=== PATIENT | male | born 1980 | race Caucasian/White ===

== ENCOUNTER 2016-10-28 15:57 | Inpatient (IN) | payer BC, MEDICAID ==
[2016-10-28] MEDS ORDERED: SODIUM CHLORIDE 0.9% 1,000 ML IV ONE (16:40)
[2016-10-28 16:58] LABS: Basophils % (A) 1 %; CH 32.5; CHCM 35.5; Eosinophils % (A) 1 %; HCT 44.8 % (39.0-53.0); HDW 2.73; HGB 15.3 gm/dL (13.0-17.5); Luc # (Auto) 0.07; Luc % (Auto) 2; Lymphocytes # (A) 0.9 k/uL (1.0-4.8); Lymphocytes % (A) 30 %; MCH 31.4 pg (25.0-35.0); MCHC 34.2 g/dL (31.0-37.0); MCV 91.9 fL (80.0-100.0); Mean Platelet Volume 7.3; Monocytes # (A) 0.2 k/uL (0-1.0); Monocytes % (A) 5 %; Neutrophils # (A) 1.9 k/uL (1.3-7.7); Neutrophils % (A) 62 %; RBC 4.87 m/uL (4.30-5.90); RDW 14.6 % (11.5-15.5); WBC 3.1 k/uL (3.8-10.6); WBC (Perox) 2.95
--- NOTE | 2016-10-28 17:02 | ED ---
Alcohol HPI <Monae Espinalily - Last Filed: 10/29/16 07:00> - General Source: patient, EMS, RN notes reviewed Mode of arrival: EMS Limitations: no limitations <Magalie Kuo - Last Filed: 10/30/16 22:50> - General Chief Complaint: Alcohol Stated Complaint: eval for withdrawals, Time Seen by Provider: 10/28/16 16:05 - History of Present Illness Initial Comments: Patient is a 36-year-old male presents to the emergency room for evaluation of alcohol intoxication. Patient states that he drinks about a fifth of vodka per day. Patient states he's been doing this on and off for many years. Patient states he has tried to go to rehab with no success. Patient denies suicidal or homicidal ideations. Patient denies illicit drug use. Patient states he smokes 2 packs per day. Patient was petitioned by his mother. Petition states that patient has lost 45 pounds in the last month and does not eat or socialize. Patient has a history of bipolar disorder. Patient has not been taking his medications. Patient denies chest pain, shortness of breath, headache , dizziness, nausea, vomiting, diarrhea, constipation, fevers, chills. (Magalie uKo) - Related Data Home Medications Medication Instructions Recorded Confirmed No Known Home Medications [No 10/28/16 10/28/16 Known Home Medications] Allergies Allergy/AdvReac Type Severity Reaction Status Date / Time No Known Allergies Allergy Verified 10/28/16 16:25 Review of Systems ROS Other: All systems not noted in ROS Statement are negative. <Judy Espinal - Last Filed: 10/29/16 07:00> ROS Other: All systems not noted in ROS Statement are negative. <Magalie Kuo - Last Filed: 10/30/16 22:50> ROS Statement: Those systems with pertinent positive or pertinent negative responses have been documented in the HPI. Past Medical History Past Medical History: No Reported History History of Any Multi-Drug Resistant Organisms: None Reported Past Surgical History: Tonsillectomy Past Psychological History: No Psychological Hx Reported Smoking Status: Current every day smoker Past Alcohol Use History: Abuse, Daily, Heavy Past Drug Use History: None Reported - Past Family History Father Additional Family Medical History / Comment(s): Father is alive at age 57 with no major medical problems. Mother is alive at age of 56 with no major medical problems. Patient has 1 sister with no known medical problems. Patient does not have any children. <Magalie Kuo - Last Filed: 10/30/16 22:50> General Exam <Judy Espinal - Last Filed: 10/29/16 07:00> Limitations: no limitations General appearance: alert, appears intoxicated Head exam: Present: atraumatic, normocephalic, normal inspection Eye exam: Present: normal appearance ENT exam: Present: normal exam Neck exam: Present: normal inspection Respiratory exam: Present: normal lung sounds bilaterally. Absent: respiratory distress Cardiovascular Exam: Present: normal rhythm, tachycardia, normal heart sounds GI/Abdominal exam: Present: soft, normal bowel sounds. Absent: distended, tenderness, guarding, rebound, rigid Extremities exam: Present: normal inspection Back exam: Present: normal inspection Neurological exam: Present: alert, oriented X3, CN II-XII intact, normal gait Psychiatric exam: Present: normal affect, normal mood Skin exam: Present: warm, dry, intact, normal color. Absent: rash <Magalie Kuo - Last Filed: 10/30/16 22:50> - General Exam Comments Initial Comments: Laying in exam room, no acute distress. (Magalie Kuo) Medical Decision Making - Lab Data Result diagrams: 10/28/16 16:48 10/28/16 16:48 <Judy Espinal - Last Filed: 10/29/16 07:00> - Lab Data Result diagrams: 10/28/16 16:48 10/28/16 16:48 <Magalie Kuo - Last Filed: 10/30/16 22:50> - Medical Decision Making Patient was evaluated by EPS and will be admitted, however there is no open bed available at this time. Patient placed on [facility] protocol, and pending transfer. (Judy Espinal) patient is a 36-year-old male presents to the emergency room for alcohol intoxication. Patient's serum alcohol level 231. Patient will be sober at 12: 45 AM. Labs show no significant findings. Patient is petitioned. Patient can be evaluated by psych when sober to 12:45 AM. Case discussed and passed on to Dr. Holt. (Magalie Kuo) - Lab Data Lab Results 10/28/16 10/28/16 10/28/16 Range/Units 16:48 16:48 16:48 WBC 3.1 L (3.8-10.6) k/uL RBC 4.87 (4.30-5.90) m/uL Hgb 15.3 (13.0-17.5) gm/dL Hct 44.8 (39.0-53.0) % MCV 91.9 (80.0-100.0) fL MCH 31.4 (25.0-35.0) pg MCHC 34.2 (31.0-37.0) g/dL RDW 14.6 (11.5-15.5) % Plt Count 89 L (150-450) k/uL Neutrophils % 62 % Lymphocytes % 30 % Monocytes % 5 % Eosinophils % 1 % Basophils % 1 % Neutrophils # 1.9 (1.3-7.7) k/uL Lymphocytes # 0.9 L (1.0-4.8) k/uL Monocytes # 0.2 (0-1.0) k/uL Eosinophils # 0.0 (0-0.7) k/uL Basophils # 0.0 (0-0.2) k/uL Sodium 138 (137-145) mmol/L Potassium 3.7 (3.5-5.1) mmol/L Chloride 96 L (98-107) mmol/L Carbon Dioxide 23 (22-30) mmol/L Anion Gap 19 mmol/L BUN 20 (9-20) mg/dL Creatinine 0.65 L (0.66-1.25) mg/dL Est GFR (MDRD) Af Amer >60 (>60 ml/min/1.73 sqM) Est GFR (MDRD) Non-Af >60 (>60 ml/min/1.73 sqM) Glucose 106 H (74-99) mg/dL Calcium 8.7 (8.4-10.2) mg/dL Magnesium 1.6 (1.6-2.3) mg/dL Ferritin (18-464) ng/mL Total Bilirubin 1.0 (0.2-1.3) mg/dL AST 233 H (17-59) U/L ALT 139 H (21-72) U/L Alkaline Phosphatase 93 (38-126) U/L Total Protein 7.1 (6.3-8.2) g/dL Albumin 4.9 (3.5-5.0) g/dL Amylase (30-110) U/L Lipase (23-300) U/L TSH 0.937 (0.465-4.680) mIU/L Urine Color Urine Appearance (Clear) Urine pH (5.0-8.0) Ur Specific [place] (1.001-1.035) Urine Protein (Negative) Urine Glucose (UA) (Negative) Urine Ketones (Negative) Urine Blood (Negative) Urine Nitrite (Negative) Urine Bilirubin (Negative) Urine Urobilinogen (<2.0) mg/dL Ur Leukocyte Esterase (Negative) Urine RBC (0-5) /hpf Urine WBC (0-5) /hpf Ur Squamous Epith Cells (0-4) /hpf Urine Bacteria (None) /hpf Hyaline Casts (0-2) /lpf Granular Casts (0) /lpf Urine Mucus (None) /hpf Urine Opiates Screen (NotDetected) Ur Oxycodone Screen (NotDetected) Urine Methadone Screen (NotDetected) Ur Propoxyphene Screen (NotDetected) Ur Barbiturates Screen (NotDetected) U Tricyclic Antidepress (NotDetected) Ur Phencyclidine Scrn (NotDetected) Ur Amphetamines Screen (NotDetected) U Methamphetamines Scrn (NotDetected) U Benzodiazepines Scrn (NotDetected) Urine Cocaine Screen (NotDetected) U Marijuana (THC) Screen (NotDetected) Serum Alcohol 231 mg/dL Hepatitis A IgM Ab Hep Bs Antigen Hep B Core IgM Ab Hep C IgG Ab (Negative) 10/28/16 10/28/16 Range/Units 16:48 17:37 WBC (3.8-10.6) k/uL RBC (4.30-5.90) m/uL Hgb (13.0-17.5) gm/dL Hct (39.0-53.0) % MCV (80.0-100.0) fL MCH (25.0-35.0) pg MCHC (31.0-37.0) g/dL RDW (11.5-15.5) % Plt Count (150-450) k/uL Neutrophils % % Lymphocytes % % Monocytes % % Eosinophils % % Basophils % % Neutrophils # (1.3-7.7) k/uL Lymphocytes # (1.0-4.8) k/uL Monocytes # (0-1.0) k/uL Eosinophils # (0-0.7) k/uL Basophils # (0-0.2) k/uL Sodium (137-145) mmol/L Potassium (3.5-5.1) mmol/L Chloride (98-107) mmol/L Carbon Dioxide (22-30) mmol/L Anion Gap mmol/L BUN (9-20) mg/dL Creatinine (0.66-1.25) mg/dL Est GFR (MDRD) Af Amer (>60 ml/min/1.73 sqM) Est GFR (MDRD) Non-Af (>60 ml/min/1.73 sqM) Glucose (74-99) mg/dL Calcium (8.4-10.2) mg/dL Magnesium (1.6-2.3) mg/dL Ferritin 1050 H (18-464) ng/mL Total Bilirubin (0.2-1.3) mg/dL AST (17-59) U/L ALT (21-72) U/L Alkaline Phosphatase (38-126) U/L Total Protein (6.3-8.2) g/dL Albumin (3.5-5.0) g/dL Amylase 53 (30-110) U/L Lipase 350 H (23-300) U/L TSH (0.465-4.680) mIU/L Urine Color Yellow Urine Appearance Clear (Clear) Urine pH 5.5 (5.0-8.0) Ur Specific [place] 1.024 (1.001-1.035) Urine Protein 2+ H (Negative) Urine Glucose (UA) Negative (Negative) Urine Ketones 4+ H (Negative) Urine Blood Negative (Negative) Urine Nitrite Negative (Negative) Urine Bilirubin Negative (Negative) Urine Urobilinogen 2.0 (<2.0) mg/dL Ur Leukocyte Esterase Negative (Negative) Urine RBC 1 (0-5) /hpf Urine WBC 1 (0-5) /hpf Ur Squamous Epith Cells <1 (0-4) /hpf Urine Bacteria Rare H (None) /hpf Hyaline Casts 3 H (0-2) /lpf Granular Casts 5 (0) /lpf Urine Mucus Rare H (None) /hpf Urine Opiates Screen Not Detected (NotDetected) Ur Oxycodone Screen Not Detected (NotDetected) Urine Methadone Screen Not Detected (NotDetected) Ur Propoxyphene Screen Not Detected (NotDetected) Ur Barbiturates Screen Not Detected (NotDetected) U Tricyclic Antidepress Not Detected (NotDetected) Ur Phencyclidine Scrn Not Detected (NotDetected) Ur Amphetamines Screen Not Detected (NotDetected) U Methamphetamines Scrn Not Detected (NotDetected) U Benzodiazepines Scrn Not Detected (NotDetected) Urine Cocaine Screen Not Detected (NotDetected) U Marijuana (THC) Screen Not Detected (NotDetected) Serum Alcohol mg/dL Hepatitis A IgM Ab NEGATIVE Hep Bs Antigen Negative Hep B Core IgM Ab NEGATIVE Hep C IgG Ab Negative (Negative) Disposition <Judy Espinal - Last Filed: 10/29/16 07:00> <Magalie Kuo - Last Filed: 10/30/16 22:50> Clinical Impression: Alcoholic intoxication, Depression Disposition: TRANSFER TO PSYCH HOSP/UNIT
[2016-10-28 17:09] LABS: ALT 139 U/L (21-72); AST 233 U/L (17-59); Alkaline Phosphatase 93 U/L (38-126); Anion Gap 19 mmol/L; Blood Urea Nitrogen 20 mg/dL (9-20); Calcium 8.7 mg/dL (8.4-10.2); Carbon Dioxide 23 mmol/L (22-30); Chloride 96 mmol/L (98-107); Glucose 106 mg/dL (74-99); Magnesium 1.6 mg/dL (1.6-2.3); Non-African American GFR(MDRD) >60 (>60 ml/min/1.73 sqM); Potassium 3.7 mmol/L (3.5-5.1); Sodium 138 mmol/L (137-145); Total Protein 7.1 g/dL (6.3-8.2)
[2016-10-28 17:11] LABS: Alcohol 231 mg/dL
[2016-10-28] MEDS ORDERED: SODIUM CHLORIDE 0.9% 1,000 ML BAG ONE (17:34)
[2016-10-28] MEDS: 1: MVI, ADULT NO.4 WITH VIT K 10 ML, THIAMINE 100 MG, FOLIC ACID 1 MG in SODIUM CHLORIDE IV SCH ×4 (17:36)
[2016-10-28 17:46] LABS: Appearance,Urine Clear (Clear); Bacteria,Urine Rare /hpf; Bilirubin,Urine Negative (Negative); Glucose,Urine (UA) Negative (Negative); Granular Casts,Urine 5 /lpf (0); Ketones,Urine 4+ (Negative); Leukocyte Esterase,Urine Negative (Negative); Mucus,Urine Rare /hpf; Nitrite,Urine Negative (Negative); PH, Urine 5.5 (5.0-8.0); Particle Count 3570; Protein,Urine 2+ (Negative); RBC,Urine 1 /hpf (0-5); Specific Gravity,Urine 1.024 (1.001-1.035); Squamous Epithelial Cell,Urine <1 /hpf (0-4); UA Billing (MACRO vs. MICRO) MICRO; WBC,Urine 1 /hpf (0-5)
[2016-10-28] MEDS ORDERED: ONDANSETRON 4 MG/2 ML VIAL IVP STA (18:08)
[2016-10-28] MEDS: LORazepam 2 MG/ML SYRINGE IV STA ×2 (19:07→21:09)
[2016-10-29] MEDS ORDERED: LORazepam 2 MG/ML SYRINGE IV STA (00:29)
[2016-10-29] MEDS ORDERED: LORazepam 2 MG/ML SYRINGE IV PRN ×2 (02:08)
[2016-10-29] MEDS ORDERED: THIAMINE 100 MG/ML 2 ML VIAL IM STA (02:08)
[2016-10-29] MEDS: LORazepam 2 MG/ML SYRINGE IV PRN ×4 (03:31→09:44)
[2016-10-29] MEDS: 1: MVI, ADULT NO.4 WITH VIT K 10 ML, THIAMINE 100 MG, FOLIC ACID 1 MG in SODIUM CHLORIDE IV SCH ×4 (03:51)
[2016-10-29] MEDS ORDERED: MAGNESIUM HYDROXIDE 2,400 MG/10 ML CUP PO PRN (12:30)
[2016-10-29] MEDS ORDERED: MAG HYDROX/AL HYDROX/SIMETH 30 ML CUP PO PRN (12:30)
[2016-10-29] MEDS ORDERED: ACETAMINOPHEN TAB 325 MG TAB PO PRN (12:30)
[2016-10-29] MEDS ORDERED: LOPERAMIDE 2 MG CAP PO PRN (12:36)
[2016-10-29] MEDS ORDERED: ONDANSETRON 4 MG TAB PO PRN (12:36)
[2016-10-29] MEDS ORDERED: NICOTINE 21MG/24HR PATCH TRANSDERM STA (14:20)
[2016-10-29] MEDS: LORazepam 1 MG TAB PO SCH ×2 (15:59→21:21)
[2016-10-29] MEDS: THIAMINE 100 MG TAB PO SCH (17:02)
[2016-10-30] MEDS: LORazepam 1 MG TAB PO SCH ×3 (09:43→21:10)
[2016-10-30] MEDS: NICOTINE 21MG/24HR PATCH TRANSDERM SCH (09:43)
[2016-10-30] MEDS: THIAMINE 100 MG TAB PO SCH ×2 (12:45→16:13)
[2016-10-30 13:33] LABS: Amylase 53 U/L (30-110)
--- NOTE | 2016-10-30 14:10 | P.MDCNMH ---
History of Present Illness H&P Date: 10/30/16 This is a 36-year-old male patient of Dr. Josiah Ruth in [place] with a past medical history of tobacco use and dependence, alcohol abuse. Patient states that he has been going on alcohol [place] for the past 2 months and decided he needed detox and came into the hospital and the next thing he knew he was in the mental health unit. According to the emergency center notes, patient was brought into [facility] emergency center for alcohol intoxication. He drinks a fifth a day on and off for many years. He tried to go to rehab with no success. No suicidal or homicidal ideations. Patient was petitioned by his mother. He apparently lost 45 pounds the past month does not eat or socialize. The patient does state that he lost about 15 pounds and just finds it difficult to eat when he is drinking. He is supposed to be on Depakote but has not been taking it. Patient is noted to have severe muscle wasting in the extremities and patient states he has difficulty walking and he also has burning in his fingertips. He denies any vision problems. He has had a hospitalization in the past year for pancreatitis. He does have history of IV drug use of heroin 5 years ago. Serum alcohol level was 231 and urine drug screen was negative. AST is 233 and ALT 139. His last alcohol intake was 4 days ago and he states he drinks a half a gallon of vodka per day. Patient has been admitted to the mental health unit. Review of Systems All systems: negative Constitutional: Reports anorexia, Reports fatigue, Reports poor appetite, Reports weight loss, Denies chills, Denies fever Eyes: denies blurred vision, denies pain Ears, nose, mouth and throat: Denies headache, Denies sore throat Cardiovascular: Denies chest pain, Denies shortness of breath Respiratory: Denies cough Gastrointestinal: Denies abdominal pain, Denies diarrhea, Denies nausea, Denies vomiting Musculoskeletal: Reports arm numbness/tingling, Reports gait dysfunction, Reports leg numbness/tingling, Denies myalgias Integumentary: Denies pruritus, Denies rash Neurological: Denies numbness, Denies weakness Psychiatric: Reports depression, Denies anxiety Endocrine: Denies fatigue, Denies weight change Past Medical History Past Medical History: No Reported History Additional Past Medical History / Comment(s): Episode of acute pancreatitis requiring admission. History of Any Multi-Drug Resistant Organisms: None Reported Past Surgical History: Tonsillectomy Past Psychological History: No Psychological Hx Reported Smoking Status: Current every day smoker Past Alcohol Use History: Abuse, Daily, Heavy Additional Past Alcohol Use History / Comment(s): Patient is a smoker 2 packs of cigarettes per day. Patient drinks a half gallon of vodka per day on and off for many years. He denies any current marijuana or street drug use. 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 He lives with his father. He does not have any children. Past Drug Use History: None Reported - Past Family History Father Additional Family Medical History / Comment(s): Father is alive at age 57 with no major medical problems. Mother is alive at age of 56 with no major medical problems. Patient has 1 sister with no known medical problems. Patient does not have any children. Medications and Allergies Home Medications Medication Instructions Recorded Confirmed Type No Known Home Medications [No 10/28/16 10/28/16 History Known Home Medications] Allergies Allergy/AdvReac Type Severity Reaction Status Date / Time No Known Allergies Allergy Verified 10/28/16 16:25 Physical Exam Vitals: Vital Signs Temp Pulse Pulse Pulse Resp BP BP 10/30/16 06:53 98.3 F 89 16 116/70 10/29/16 19:16 144 H 16 10/29/16 17:01 126 H 16 10/29/16 15:58 116 H 16 153/90 10/29/16 13:44 114 H 16 10/29/16 12:40 99.1 F 98 14 10/29/16 12:13 96.8 F L 99 18 140/69 10/29/16 09:40 98 18 131/81 BP Pulse Ox 10/30/16 06:53 10/29/16 19:16 144/90 10/29/16 17:01 139/84 10/29/16 15:58 10/29/16 13:44 131/87 10/29/16 12:40 131/81 98 10/29/16 12:13 99 10/29/16 09:40 98 Gen: This is a 36-year-old thin male. He is cooperative. HEENT: Head is atraumatic, normocephalic. Pupils equal, round. Sclerae is anicteric. NECK: Supple. No JVD. No lymphadenopathy. No thyromegaly. LUNGS: Clear to auscultation. No wheezes or rhonchi. No intercostal retractions. HEART: Regular rate and rhythm. No murmur. ABDOMEN: Soft. Bowel sounds are present. No masses. No tenderness. EXTREMITIES: No pedal edema. No calf tenderness. Muscle wasting noticed to the upper and lower extremities. NEUROLOGICAL: Patient is awake, alert and oriented x3. Cranial nerves 2 through 12 are grossly intact. Cranial Nerve Examination - Cranial Nerves Cranial Nerve I- Olfactory: Intact (Patient denies any loss of smell.) Cranial Nerve II- Optic: Intact Cranial Nerve III- Oculomotor: Intact Cranial Nerve IV- Trochlear: Intact Cranial Nerve V- Trigeminal: Intact Cranial Nerve - Abducens: Intact Cranial Nerve VII- Facial: Intact Cranial Nerve VIII- Auditory: Intact Cranial Nerve IX- Glossopharyngeal: Intact Cranial Nerve X- Vagus: Intact Cranial Nerve XI- Accessory: Intact Cranial Nerve XII- Hypoglossal: Intact Results CBC & Chem 7: 10/28/16 16:48 10/28/16 16:48 Assessment and Plan Plan: 1. Depression with history of bipolar, not on medication. Patient admitted to the mental health unit. Continue plan per psychiatrist.. 2. Alcohol abuse. Continue thiamine, Ativan, Imodium 3. Tobacco use and dependence. Continue nicotine patch. 4. Chronic alcohol abuse and previous IV heroin use with possible cirrhosis of the liver with noted elevated liver function tests, muscle wasting, peripheral neuropathy and gait disturbance. Abdominal ultrasound of the liver ordered, acute hepatitis panel and ferritin level. 5. History of acute pancreatitis. Check amylase and lipase. Impression and plan of care have been directed as dictated by the signing physician. Altagracia Noe nurse practitioner acting as scribe for signing physician.
--- NOTE | 2016-10-30 14:12 | P.HP ---
Psychiatric H&P - . H&P Date: 10/30/16 History & Physical: Identification: Patient is a 36-year-old male was brought into the emergency room after his sister found him unresponsive at home. Patient was brought into the emergency room on October 28 was held in the emergency room on detox protocol. History of Present Illness: Patient states that he has gone on a drinking binge for the last 2 months, stating that he escalated his intake of alcohol from a fifth a day to a half gallon a day for the last month. He was recently at [facility] in August of this year and left after 7 days he reports due to insurance difficulties and restarted drinking upon his discharge. Patient states that he can see no precipitant to his increased use of alcohol and states that over the last year he has been using vodka prior to that he was using beer. He reports that he hates drinking and wants to stop, has been having blackouts while he is drinking, denies any seizures while drinking. He reports that since early August he has lost about 25 pounds due to the fact that he is not eating and states he has not been sleeping well if his use of alcohol increased. He states he's been obtaining the alcohol by getting money from either his girlfriend or father and when he has no money which has been the last several weeks he has been stealing it. He states since his discharge from [facility] that his girlfriend has been working increasing hours and he had cut off ties with all of his hold friends since 2011 and was feeling bored and had too much idle time and feels this is the reason he began drinking heavily. Patient also states that he used to spend nights with his girlfriend she however has refused to have him do that states that he spends time with her and has been living with his father for the last 2 months. He states when he is drinking he is initially happy and he can become irritable and angry. Patient states he began using alcohol at the age of 21 or 22 and would drink heavily on the weekends that, by the age of 28 he began drinking on a daily basis and reports that over the last year he has changed from drinking beer to vodka. He states since 2013 he has maybe had sobriety periods of a month or more. In the past he was sober from 2009 until 2013 with a relapse in 2011 and admission to [facility] for 90 days, after that discharge he was placed in transitional housing and was attending AA meetings at that time. Patient stated that he had attempted suicide in 2002 by taking an overdose of trazodone and Tylenol, he was drinking at the time and states that he did this to get attention from his girlfriend with whom he had broken up with recently. He was admitted to the ICU for several days and transferred to an inpatient psychiatric unit and was there for 7 days. He states that this time he was diagnosed with bipolar disorder and placed on Depakote and trazodone. He states he has had no psychiatric follow-up since that discharge and over the last 14 years his primary care doctor has been prescribing the Depakote, unknown dosage and trazodone unknown dosage and the patient has been taking them intermittently. He states that he has not used trazodone for the last several months. He reports his use of the Depakote was intermittent, especially when his father would tell him to take it so he would stop drinking. Patient is unable to endorse any current symptoms of depression, he is unable to endorse episodes of depression in the past and states that his only suicide attempt occurred not because he wanted to because he wanted to get the attention of his girlfriend and was also drinking at the time. He states when he is sober his mood is stable. He is unable to endorse any manic symptoms in the past or currently. He is also unable to endorse any psychotic symptoms currently or in the past. Patient admits that his current problem in his alcohol use and states that he wants to stop drinking as he is aware that he could possibly developed cirrhosis and his paternal grandfather did and apparently of. Past Psychiatric History: Patient states that at the age of 10 he was taken to a counselor due to a poor attitude, which he describes as being defiant. For information from his father he was seen by several counselors who are unable to work with him. Patient states that he was not prescribed any medication as a child. His next contact with psychiatry came in his admission to [facility] in 2002 following overdose and he was prescribed Depakote and trazodone at that time. Patient has not received any outpatient psychiatric follow-up since that time and has had no other inpatient psychiatric admissions. Patient was first admitted for alcohol rehab in 2007 for 28 [facility], his next 2 admissions were at [facility] one in 2011 for 90 days and one in 2014 for 30 days, he states cut short due to his father not willing to continue to pay for the treatment. He was most recently in August of this year admitted to [facility] where he stayed for 7 days and left due to insurance problems per the patient. He was in transitional housing following his discharge from [facility] in 2011. He states his longest sobriety has been for 4-5 years from 2009 to 2013 although patient did have a relapse in 2011 and was admitted for treatment and it appears that his longest period of sobriety was following the admission in 2011 to [facility] and his subsequent stay in transitional housing. Past Medical/Surgical History: Patient states he has a tonsillectomy and adenoidectomy and denies any other prior medical problems or past surgeries. He reports ALLERGIES to no medication but does have seasonal allergies. Current Medications: Patient states that he has been intermittently taking Depakote of an unknown dosage at home but does not think he is taking any Depakote or trazodone in the last several months. Family History: Patient has a paternal grandfather who was an alcohol user and of cirrhosis, he has 2 maternal uncles who both use alcohol and drugs. He denies any completed suicides in the family, and any psychiatric history. Social History: Patient was born and raised in [place] to parents who he states in 2007. Patient's mother is currently living in [place] the patient currently resides with his father although he states in the past he was staying with his girlfriend on and off. Currently he has been living with his father as his girlfriend has refused to allow him to stay the night with her, patient would not give me a reason other than that she does not like the amount of alcohol he is using. Patient has one sister. Patient states that he completed high school and states that he always had an attitude in school even though his grades were A's and B's. 4 years ago the patient enrolled in college and states he is close to obtaining an associate's degree. 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 He is currently supported financially by his father. He denies any history of abuse. He has never been and has no children. Substance Use History: Patient states his alcohol use began on the weekends at the age of 21 or 22 when he would binge drink with friends. He states that at the age of 28 is when he began daily drinking initially using beer and over the last year drinking vodka. He states that his use has been a half gallon a day since his discharge from [facility] in August of this year. He denies any seizures or DTs in the past but does state that he does have blackouts when drinking. Patient states that he used marijuana in high school but has not used since that time. He reports he used cocaine in the early 1999's but none since that time. He tried heroin for 6 months in 2011 and was using it intravenously. Patient reports that he does use tobacco and has since the age of 22 and in the last 6 months reports his use of close to 2 packs a day. Legal History: Patient reports he had a DUI in 2003 and denied any other legal problems, however per his father's report to social work he has had several DUIs and DV charges. Mental Status:Appearance/Attitude: Patient is appropriately dressed and was cooperative during the interview, making good eye contact. Behavior: Patient exhibited no psychomotor agitation or retardation and stated that he was physically feeling fairly comfortable at this time. Speech/Language: A she and speech was spontaneous and was of normal volume and rhythm Thought Process: Patient was goal-directed and there is no evidence of any circumstantial or tangential thought. Thought Content: Patient denied any current auditory or visual hallucinations, no delusional or paranoid ideation was elicited and the patient states that he is interested in stopping his use of alcohol and stated that he hates that he continues to drink. Patient has not been eating at home, but states he is not feeling as nauseated and did eat some of his breakfast, he is reporting poor sleep at home. Suicidal/Homicidal Ideation: He denied any current suicidal or homicidal ideation. Sensorium/Cognition: Patient was alert and oriented to person, place, and time and his memory was grossly intact. Mood/Affect: His mood was euthymic and his affect was appropriate. Insight/Judgement: Patient's insight and judgment are fair in that he recognizes the need for treatment. Strength/Weaknesses: Patient has a supportive father/continued use of alcohol Assessment: Patient patient reports feeling physically fairly well at this time there is no evidence of any depressive symptomatology, manic symptomatology or psychotic symptom in college he currently. Patient's blood work revealed an admitting EtOH level of 231, his AST and ALT were elevated. His UDS on admission was negative. Please see complete labs below. Patient has been cooperative on the unit reports that he has been attending groups, his appetite is fair and his sleep is adequate. Admission Diagnoses:alcohol use disorder, severe Plan: Patient was admitted and ordered group and activity therapy, he was placed on Ativan 1 mg 3 times a day to control any withdrawal symptoms, patient was seen by medical staff and they ordered an ultrasound of his abdomen, amylase , lipase, repeat liver panel and hepatitis panel and ferritin level. Patient will not be prescribed any other psychotropic medication there is no evidence of any depressive symptoms or psychosis. Patient is wanting to transfer to inpatient rehab for his alcohol use. Allergies Allergy/AdvReac Type Severity Reaction Status Date / Time No Known Allergies Allergy Verified 10/28/16 16:25 Vital Signs Temp 98.3 F 10/30/16 06:53 Pulse 113 H 10/30/16 09:45 Resp 16 10/30/16 09:45 BP 134/83 10/30/16 09:45 Pulse Ox 98 10/29/16 12:40 Laboratory Last Values WBC 3.1 k/uL (3.8-10.6) L 10/28/16 16:48 RBC 4.87 m/uL (4.30-5.90) 10/28/16 16:48 Hgb 15.3 gm/dL (13.0-17.5) 10/28/16 16:48 Hct 44.8 % (39.0-53.0) 10/28/16 16:48 MCV 91.9 fL (80.0-100.0) 10/28/16 16:48 MCH 31.4 pg (25.0-35.0) 10/28/16 16:48 MCHC 34.2 g/dL (31.0-37.0) 10/28/16 16:48 RDW 14.6 % (11.5-15.5) 10/28/16 16:48 Plt Count 89 k/uL (150-450) L 10/28/16 16:48 Neutrophils % 62 % 10/28/16 16:48 Lymphocytes % 30 % 10/28/16 16:48 Monocytes % 5 % 10/28/16 16:48 Eosinophils % 1 % 10/28/16 16:48 Basophils % 1 % 10/28/16 16:48 Neutrophils # 1.9 k/uL (1.3-7.7) 10/28/16 16:48 Lymphocytes # 0.9 k/uL (1.0-4.8) L 10/28/16 16:48 Monocytes # 0.2 k/uL (0-1.0) 10/28/16 16:48 Eosinophils # 0.0 k/uL (0-0.7) 10/28/16 16:48 Basophils # 0.0 k/uL (0-0.2) 10/28/16 16:48 Sodium 138 mmol/L (137-145) 10/28/16 16:48 Potassium 3.7 mmol/L (3.5-5.1) 10/28/16 16:48 Chloride 96 mmol/L (98-107) L 10/28/16 16:48 Carbon Dioxide 23 mmol/L (22-30) 10/28/16 16:48 Anion Gap 19 mmol/L 10/28/16 16:48 BUN 20 mg/dL (9-20) 10/28/16 16:48 Creatinine 0.65 mg/dL (0.66-1.25) L 10/28/16 16:48 Est GFR (MDRD) Af Amer >60 (>60 ml/min/1.73 sqM) 10/28/16 16:48 Est GFR (MDRD) Non-Af >60 (>60 ml/min/1.73 sqM) 10/28/16 16:48 Glucose 106 mg/dL (74-99) H 10/28/16 16:48 Calcium 8.7 mg/dL (8.4-10.2) 10/28/16 16:48 Magnesium 1.6 mg/dL (1.6-2.3) 10/28/16 16:48 Total Bilirubin 1.0 mg/dL (0.2-1.3) 10/28/16 16:48 AST 233 U/L (17-59) H 10/28/16 16:48 ALT 139 U/L (21-72) H 10/28/16 16:48 Alkaline Phosphatase 93 U/L (38-126) 10/28/16 16:48 Total Protein 7.1 g/dL (6.3-8.2) 10/28/16 16:48 Albumin 4.9 g/dL (3.5-5.0) 10/28/16 16:48 TSH 0.937 mIU/L (0.465-4.680) 10/28/16 16:48 Urine Color Yellow 10/28/16 17:37 Urine Appearance Clear (Clear) 10/28/16 17:37 Urine pH 5.5 (5.0-8.0) 10/28/16 17:37 Ur Specific [place] 1.024 (1.001-1.035) 10/28/16 17:37 Urine Protein 2+ (Negative) H 10/28/16 17:37 Urine Glucose (UA) Negative (Negative) 10/28/16 17:37 Urine Ketones 4+ (Negative) H 10/28/16 17:37 Urine Blood Negative (Negative) 10/28/16 17:37 Urine Nitrite Negative (Negative) 10/28/16 17:37 Urine Bilirubin Negative (Negative) 10/28/16 17:37 Urine Urobilinogen 2.0 mg/dL (<2.0) 10/28/16 17:37 Ur Leukocyte Esterase Negative (Negative) 10/28/16 17:37 Urine RBC 1 /hpf (0-5) 10/28/16 17:37 Urine WBC 1 /hpf (0-5) 10/28/16 17:37 Ur Squamous Epith Cells <1 /hpf (0-4) 10/28/16 17:37 Urine Bacteria Rare /hpf (None) H 10/28/16 17:37 Hyaline Casts 3 /lpf (0-2) H 10/28/16 17:37 Granular Casts 5 /lpf (0) 10/28/16 17:37 Urine Mucus Rare /hpf (None) H 10/28/16 17:37 Urine Opiates Screen Not Detected (NotDetected) 10/28/16 17:37 Ur Oxycodone Screen Not Detected (NotDetected) 10/28/16 17:37 Urine Methadone Screen Not Detected (NotDetected) 10/28/16 17:37 Ur Propoxyphene Screen Not Detected (NotDetected) 10/28/16 17:37 Ur Barbiturates Screen Not Detected (NotDetected) 10/28/16 17:37 U Tricyclic Antidepress Not Detected (NotDetected) 10/28/16 17:37 Ur Phencyclidine Scrn Not Detected (NotDetected) 10/28/16 17:37 Ur Amphetamines Screen Not Detected (NotDetected) 10/28/16 17:37 U Methamphetamines Scrn Not Detected (NotDetected) 10/28/16 17:37 U Benzodiazepines Scrn Not Detected (NotDetected) 10/28/16 17:37 Urine Cocaine Screen Not Detected (NotDetected) 10/28/16 17:37 U Marijuana (THC) Screen Not Detected (NotDetected) 10/28/16 17:37 Serum Alcohol 231 mg/dL 10/28/16 16:48 10/30/16 13:42 10/30/16 14:11
--- NOTE | 2016-10-30 15:01 | US ---
EXAMINATION TYPE: US abdomen limited DATE OF EXAM: 10/30/2016 COMPARISON: NONE CLINICAL HISTORY: abd pain. ABD pain EXAM MEASUREMENTS: Liver Length: 20 cm cm Gallbladder Wall: 0.2 cm CBD: 0.4 cm Right Kidney: 10.6 x 4.8 x 5.2 cm Pancreas: wnl Liver: Enlarged, heterogeneous, difficult to penetrate Gallbladder: Sludge visible Evidence for sonographic Carrasco's sign: No CBD: wnl Right Kidney: wnl IMPRESSION: 1. Liver metastases treated nonspecific pattern correlate for hepatitis, fatty infiltration or diffus e hepatocellular disease. 2. Gallbladder sludge but no evidence of wall thickening or biliary obstruction.
[2016-10-30 15:34] LABS: Hepatitis B Surface Ag Index 0.19
[2016-10-30 15:40] LABS: Hepatitis B Core IgM Index 0.03
[2016-10-30 15:52] LABS: Hepatitis C Virus IgG Ab Negative (Negative); Hepatitis C Virus IgG Index 0.01
[2016-10-31] MEDS: LORazepam 1 MG TAB PO SCH (05:58)
[2016-10-31] MEDS: NICOTINE 21MG/24HR PATCH TRANSDERM SCH (09:40)
[2016-10-31] MEDS: THIAMINE 100 MG TAB PO SCH ×2 (11:31→16:32)
--- NOTE | 2016-10-31 13:05 | P.PN ---
Progress Note - Text Met with patient and discussed results of his testing. Ultrasound of the liver abnormality, correlate for hepatitis, fatty infiltration or diffuse hepatocellular disease. Gallbladder sludge with no evidence of wall thickening or biliary obstruction. Ferritin level came back at 1050 and AFP tumor marker was 19.6. Lipase was also elevated 350. Blood work was then ordered for hemachromatosis. Reviewed results with the patient. He denies any history in the family of hemachromatosis. We will ask for GI to evaluate the patient and follow-up outpatient as we recommended patient have a biopsy done at some point. Patient is planning to go to rehab for alcohol abuse. Also recommend follow-up with his primary care physician to coordinate care.
--- NOTE | 2016-10-31 13:51 | P.CONS ---
History of Present Illness - Reason for Consult Consult date: 10/31/16 abnormal US Requesting physician: Adan Sapp - History of Present Illness 36-year-old male longstanding history of ETOH dependency abuse x 20 years drinks fifth vodka daily, IVDA heroin abuse, presents with acute alcohol intoxication. Consult requested for abdnormal abdominal US. Presently on psychiatric unit for evaluation of depression ETOH abuse. Admission ethanol level 231. 3.1. Hemoglobin 15.3. MCV 91. Platelet 89. Ferritin 1050. Tbili 1.0 AST 233. ALT 139. Alkaline phosphatase 93. Hepatitis panel negative. US reported liver metastasis, enlarged liver 20 cm heterogeneous without focal mass or intrahepatic dilation possible fatty infiltration possible hepatits diffuse hepatocellular disease. Gallbladder sludge. CBD normal. AFP 19.6. 25-30 weight loss over last 3 months but patient admits he has been binge drinking and not eating. Denies abdominal pain, fever, hematoemesis, hematochezia, or melena. No history of known liver disorders. Review of Systems Constitutional: Denies fever, chills, sweats, weight gain, or loss. HEENT: Negative for migraines, blurred vision or loss, earaches, drainage, tinnitus, oral mucosal lesions, dysphagia, or odynophagia. Cardiac: Negative for chest pain, arrhythmias, or palpitation. Respiratory: Negative for shortness of breath, hemoptysis, cough, or sputum production. Gastrointestinal: See HPI for pertinent findings. Genitourinary: Negative for hematuria, urgency, frequency, polyuria, dysuria, or penile discharge. Musculoskeletal: Negative for muscle aches, swelling, arthritis, and arthralgias. Neurologic: Negative for stroke or TIA. Endocrine: Negative for thyroid problems. Skin: Negative for rash or itching. Psychiatric: Negative history for depression and anxiety Past Medical History Past Medical History: No Reported History Additional Past Medical History / Comment(s): Episode of acute pancreatitis requiring admission. History of Any Multi-Drug Resistant Organisms: None Reported Past Surgical History: Tonsillectomy Past Psychological History: No Psychological Hx Reported Smoking Status: Current every day smoker Past Alcohol Use History: Abuse, Daily, Heavy Past Drug Use History: None Reported - Past Family History Father Additional Family Medical History / Comment(s): Father is alive at age 57 with no major medical problems. Mother is alive at age of 56 with no major medical problems. Patient has 1 sister with no known medical problems. Patient does not have any children. Medications and Allergies Home Medications Medication Instructions Recorded Confirmed Type No Known Home Medications [No 10/28/16 10/28/16 History Known Home Medications] Allergies Allergy/AdvReac Type Severity Reaction Status Date / Time No Known Allergies Allergy Verified 10/28/16 16:25 Physical Exam Vitals: Vital Signs Temp Pulse Pulse Resp BP BP 10/31/16 02:42 98.1 F 153 H 167 H 18 137/76 129/75 10/30/16 21:10 128 H 124/86 10/30/16 16:10 131 H 16 148/87 General appearance: The patient is alert, oriented, in no acute distress. HET: Head is normocephalic and atraumatic. Pupils are equal and reactive. Oropharynx is clear without lesions. Neck: Supple without lymphadenopathy. Trachea midline. Heart: S1 S2. Regular rate and rhythm. Lungs: No crackles or wheezes are heard. Abdomen: Soft, nontender, nondistended with bowel sounds. No peritoneal signs. No palpable organomegaly or masses. Extremities: Normal skin color and turgor. No cyanosis, rash, ulceration, clubbing, or edema. Radial and pedal pulses are 2/4 bilaterally. Neurological: No focal deficits. Strength and sensation are grossly intact. Results CBC & Chem 7: 10/28/16 16:48 10/28/16 16:48 Labs: Abnormal Lab Results - Last 24 Hours (Table) 10/28/16 10/28/16 Range/Units 16:48 16:48 Ferritin 1050 H (18-464) ng/mL Lipase 350 H (23-300) U/L Tumor Marker AFP 19.6 H (0.0-7.9) ng/mL Assessment and Plan (1) Alcoholic hepatitis Status: Acute (2) Elevated AFP Narrative/Plan: mildly elevated can be seen in the presence of acute alcohol hepatitis Status: Acute (3) Thrombocytopenia Narrative/Plan: secondary to underlying alcoholic liver disease Status: Acute (4) Elevated ferritin Narrative/Plan: most likely secondary to acute alcoholic hepatitis; acute phase reactant Status: Acute (5) Alcoholic intoxication Status: Acute (6) ETOH abuse Status: Chronic Plan: 1. US reviewed by 2 radiologists; Drs. Lund and Fawad; no evidence of metastasis; dictation error; addendum to follow by radiologist. No concern for underlying malignancy at this time. 2. Dr. Montoya recommends RTO 1 month for reevaluation; AFP will be repeated at that time. Additional imaging such as MRI liver will be decided at that time if clinically necessary. 3. Discharge to rehab per psychiatry and medicine. No further workup at this time. Alcohol abstinence advised. Updated US findings along with radiologist's addendum was communicated to psychiatrist. Thank you for this kind referral and the opportunity to participate in the care of your patient. This consultation was discussed with Dr. Montoya. The impression and plan of care have been directed as dictated.
--- NOTE | 2016-10-31 14:31 | P.PN ---
Progress Note - Text Interval History: Patient is a 36-year-old male who is admitted for evaluation of his suicidal and depressive symptoms. Patient was seen today and he reports that he is feeling better, less shaky and eating and sleeping better than on admission. Patient states that he is not feeling depressed and denies any current suicidal ideation. Patient reports attending groups and is found this helpful. He reports he is still interested in attending a rehab program. Patient had no other complaints at this time. Mental Status: Appearance/Attitude: Patient is neatly dressed and appropriately groomed in his attitude was cooperative. Behavior: Patient exhibited no psychomotor agitation or retardation, reported he is much less shaky today is able to eat and slept well last evening. Speech/Language: Patient's speech was spontaneous and normal volume and rhythm. Thought Process: Patient was goal-directed and there is no evidence circumstantial or tangential thought. Thought Content: Patient denied any auditory or visual hallucinations and no delusions or paranoia were elicited. Patient states that he is feeling better and continues to wish to attend a rehab program. Suicidal/Homicidal Ideation: Patient denies any suicidal or homicidal ideation Sensorium/Cognition: Patient is alert and oriented to person, place, and time and his memory is grossly intact. Mood/Affect: His mood was euthymic and his affect was appropriate. Insight/Judgement: Insight and judgment are fair. Assessment: Patient was seen today and reported that he was feeling better, able to eat and sleep and feeling much less shaky and his CIWA score was 5 today. Patient on admission had elevated liver enzymes further studies were ordered which revealed an elevated ferritin, and an alpha-fetoprotein of 19.6 and a negative hepatitis panel. Patient also had an ultrasound of the abdomen yesterday which revealed an enlarged liver, heterogeneous liver and a nonspecific pattern correlated for hepatitis fatty infiltrate or diffuse hepatocellular disease. No focal mass. Patient's case was discussed with Dr. Short who requested a GI consult and he also ordered a genetic test for heriditary hemochromatosis. Patient was seen in consultation by Gastroenterology , Dr Montoya who suggested the patient follow up in 1 month with him for repeat testing and evaluation. Laboratory Last Values WBC 3.1 k/uL (3.8-10.6) L 10/28/16 16:48 RBC 4.87 m/uL (4.30-5.90) 10/28/16 16:48 Hgb 15.3 gm/dL (13.0-17.5) 10/28/16 16:48 Hct 44.8 % (39.0-53.0) 10/28/16 16:48 MCV 91.9 fL (80.0-100.0) 10/28/16 16:48 MCH 31.4 pg (25.0-35.0) 10/28/16 16:48 MCHC 34.2 g/dL (31.0-37.0) 10/28/16 16:48 RDW 14.6 % (11.5-15.5) 10/28/16 16:48 Plt Count 89 k/uL (150-450) L 10/28/16 16:48 Neutrophils % 62 % 10/28/16 16:48 Lymphocytes % 30 % 10/28/16 16:48 Monocytes % 5 % 10/28/16 16:48 Eosinophils % 1 % 10/28/16 16:48 Basophils % 1 % 10/28/16 16:48 Neutrophils # 1.9 k/uL (1.3-7.7) 10/28/16 16:48 Lymphocytes # 0.9 k/uL (1.0-4.8) L 10/28/16 16:48 Monocytes # 0.2 k/uL (0-1.0) 10/28/16 16:48 Eosinophils # 0.0 k/uL (0-0.7) 10/28/16 16:48 Basophils # 0.0 k/uL (0-0.2) 10/28/16 16:48 Sodium 138 mmol/L (137-145) 10/28/16 16:48 Potassium 3.7 mmol/L (3.5-5.1) 10/28/16 16:48 Chloride 96 mmol/L (98-107) L 10/28/16 16:48 Carbon Dioxide 23 mmol/L (22-30) 10/28/16 16:48 Anion Gap 19 mmol/L 10/28/16 16:48 BUN 20 mg/dL (9-20) 10/28/16 16:48 Creatinine 0.65 mg/dL (0.66-1.25) L 10/28/16 16:48 Est GFR (MDRD) Af Amer >60 (>60 ml/min/1.73 sqM) 10/28/16 16:48 Est GFR (MDRD) Non-Af >60 (>60 ml/min/1.73 sqM) 10/28/16 16:48 Glucose 106 mg/dL (74-99) H 10/28/16 16:48 Calcium 8.7 mg/dL (8.4-10.2) 10/28/16 16:48 Magnesium 1.6 mg/dL (1.6-2.3) 10/28/16 16:48 Ferritin 1050 ng/mL (18-464) H 10/28/16 16:48 Total Bilirubin 1.0 mg/dL (0.2-1.3) 10/28/16 16:48 AST 233 U/L (17-59) H 10/28/16 16:48 ALT 139 U/L (21-72) H 10/28/16 16:48 Alkaline Phosphatase 93 U/L (38-126) 10/28/16 16:48 Total Protein 7.1 g/dL (6.3-8.2) 10/28/16 16:48 Albumin 4.9 g/dL (3.5-5.0) 10/28/16 16:48 Amylase 53 U/L (30-110) 10/28/16 16:48 Lipase 350 U/L (23-300) H 10/28/16 16:48 Tumor Marker AFP 19.6 ng/mL (0.0-7.9) H 10/28/16 16:48 TSH 0.937 mIU/L (0.465-4.680) 10/28/16 16:48 Urine Color Yellow 10/28/16 17:37 Urine Appearance Clear (Clear) 10/28/16 17:37 Urine pH 5.5 (5.0-8.0) 10/28/16 17:37 Ur Specific [place] 1.024 (1.001-1.035) 10/28/16 17:37 Urine Protein 2+ (Negative) H 10/28/16 17:37 Urine Glucose (UA) Negative (Negative) 10/28/16 17:37 Urine Ketones 4+ (Negative) H 10/28/16 17:37 Urine Blood Negative (Negative) 10/28/16 17:37 Urine Nitrite Negative (Negative) 10/28/16 17:37 Urine Bilirubin Negative (Negative) 10/28/16 17:37 Urine Urobilinogen 2.0 mg/dL (<2.0) 10/28/16 17:37 Ur Leukocyte Esterase Negative (Negative) 10/28/16 17:37 Urine RBC 1 /hpf (0-5) 10/28/16 17:37 Urine WBC 1 /hpf (0-5) 10/28/16 17:37 Ur Squamous Epith Cells <1 /hpf (0-4) 10/28/16 17:37 Urine Bacteria Rare /hpf (None) H 10/28/16 17:37 Hyaline Casts 3 /lpf (0-2) H 10/28/16 17:37 Granular Casts 5 /lpf (0) 10/28/16 17:37 Urine Mucus Rare /hpf (None) H 10/28/16 17:37 Urine Opiates Screen Not Detected (NotDetected) 10/28/16 17:37 Ur Oxycodone Screen Not Detected (NotDetected) 10/28/16 17:37 Urine Methadone Screen Not Detected (NotDetected) 10/28/16 17:37 Ur Propoxyphene Screen Not Detected (NotDetected) 10/28/16 17:37 Ur Barbiturates Screen Not Detected (NotDetected) 10/28/16 17:37 U Tricyclic Antidepress Not Detected (NotDetected) 10/28/16 17:37 Ur Phencyclidine Scrn Not Detected (NotDetected) 10/28/16 17:37 Ur Amphetamines Screen Not Detected (NotDetected) 10/28/16 17:37 U Methamphetamines Scrn Not Detected (NotDetected) 10/28/16 17:37 U Benzodiazepines Scrn Not Detected (NotDetected) 10/28/16 17:37 Urine Cocaine Screen Not Detected (NotDetected) 10/28/16 17:37 U Marijuana (THC) Screen Not Detected (NotDetected) 10/28/16 17:37 Serum Alcohol 231 mg/dL 10/28/16 16:48 Hepatitis A IgM Ab NEGATIVE 10/28/16 16:48 Hep Bs Antigen Negative 10/28/16 16:48 Hep B Core IgM Ab NEGATIVE 10/28/16 16:48 Hep C IgG Ab Negative (Negative) 10/28/16 16:48 Plan: [Patient and I discussed decreasing his Ativan to 0.5 mg TID, his CIWA score was 5 today and he is reporting feeling much better, less shaky, appetite improved and sleep is restful. I spoke with social work regarding his rehab program and he was accepted at [facility] with an intake on 11/14/16. Patient will remain in hospital today and plan for discharge tomorrow. ]
[2016-10-31] MEDS: LORazepam 0.5 MG TAB PO SCH ×2 (16:32→21:01)
[2016-11-01 06:41] VITALS: BP 104/69; PULSE 77; RESP 16; TEMP 98.2
[2016-11-01] MEDS: NICOTINE 21MG/24HR PATCH TRANSDERM SCH (08:54)
[2016-11-01] MEDS: LORazepam 0.5 MG TAB PO SCH (08:54)
[2016-11-01] MEDS: THIAMINE 100 MG TAB PO SCH (08:58)
[2016-11-01 09:52] LABS: ALT 284 U/L (21-72); AST 255 U/L (17-59); Alkaline Phosphatase 112 U/L (38-126); Amylase 92 U/L (30-110); Anion Gap 12 mmol/L; Blood Urea Nitrogen 19 mg/dL (9-20); Calcium 9.7 mg/dL (8.4-10.2); Carbon Dioxide 27 mmol/L (22-30); Chloride 99 mmol/L (98-107); Glucose 103 mg/dL (74-99); Non-African American GFR(MDRD) >60 (>60 ml/min/1.73 sqM); Potassium 4.2 mmol/L (3.5-5.1); Sodium 138 mmol/L (137-145); Total Protein 6.8 g/dL (6.3-8.2)
--- NOTE | 2016-11-01 12:01 | P.PN ---
Subjective Principal diagnosis: alcohol intoxication elevated liver enzymes Admitted with acute alcohol intoxication hepatitis. Feels better. Possible DC today to group home/rehab. Minimal abdominal discomfort. Afebrile. Objective - Vital Signs Vital signs: Vital Signs Temp 98.2 F 11/01/16 06:40 Pulse 77 11/01/16 06:40 Resp 16 11/01/16 06:40 BP 104/69 11/01/16 06:40 Pulse Ox 98 10/29/16 12:40 - Constitutional General appearance: Present: average body habitus - EENT Eyes: Present: normal appearance - Neck Neck: Present: normal ROM - Respiratory Respiratory: bilateral: CTA - Cardiovascular Rhythm: regular Heart sounds: normal: S1, S2 - Gastrointestinal Gastrointestinal Comment(s): mild epigastric tenderness General gastrointestinal: Present: soft - Integumentary Integumentary: Present: normal turgor - Neurologic Neurologic: Present: CNII-XII intact - Musculoskeletal Musculoskeletal: Present: gait normal - Psychiatric Psychiatric: Present: A&O x's 3, appropriate affect - Labs CBC & Chem 7: 10/28/16 16:48 11/01/16 09:23 Labs: Abnormal Lab Results - Last 24 Hours (Table) 11/01/16 Range/Units 09:23 Glucose 103 H (74-99) mg/dL AST 255 H (17-59) U/L ALT 284 H (21-72) U/L Lipase 507 H (23-300) U/L Assessment and Plan (1) Alcoholic hepatitis Status: Acute (2) Elevated AFP Narrative/Plan: mildly elevated can be seen in the presence of acute alcohol hepatitis Status: Acute (3) Thrombocytopenia Narrative/Plan: secondary to underlying alcoholic liver disease Status: Acute (4) Elevated ferritin Narrative/Plan: most likely secondary to acute alcoholic hepatitis; acute phase reactant Status: Acute (5) Alcoholic intoxication Status: Acute (6) ETOH abuse Status: Chronic Plan: 1. Dr. Montoya recommends RTO 1 month for reevaluation; AFP/Ferritin/CMP will be repeated at that time and reviewed. Additional imaging or necessary procedures such as CT/MRI liver/bx will be decided at that time if clinically necessary. Will obtain additional serologic chemistries for evaluation of chronic liver disease prior to DC. 2. Discharge to rehab per psychiatry and medicine. No further workup at this time. Alcohol abstinence advised. 3. Patient was updated with US findings and laboratory studies and advised to follow up in 1 month. Prescription for repeat blood work provided to patient. Assessment and plan of care discussed with Dr. Montoya
--- NOTE | 2016-11-01 14:35 | P.DS ---
Providers Date of admission: 10/29/16 12:06 Expected date of discharge: 11/01/16 Attending physician: Lianne Bowling MD Consults: 10/29/16 12:30 Consult Physician Routine Consulting Provider: Jeffrey Garcia Consult Reason/Comments: Follow Up H & P Do you want consulting provider notified?: Yes 10/30/16 16:20 Consult Physician Routine Consulting Provider: Adan Sapp Consult Reason/Comments: Evaluation of results of ultrasound/recommendation. Do you want consulting provider notified?: Yes 10/31/16 11:24 Consult Physician Routine Consulting Provider: Sandra Montoya Consult Reason/Comments: possiblr liver cancer/cirrhosis Do you want consulting provider notified?: Yes Primary care physician: Josiah Nichols Hospital Course: Discharge Diagnoses:[ Alcohol use disorder, severe; acute alcoholic hepatitis] Reason for Admission: Patient is a 36-year-old male who is brought to the emergency room after his sister found him unresponsive at home. Patient was held in the emergency room from his admission on October 28 until his admission to the psychiatric unit on October 29. Patient signed involuntarily and reported that he had been on a drinking binge for the last 2 months, drinking a half gallon a day for the last month. Patient had recently been at [facility] in August of this year and left after 7 days due to insurance difficulties and restarted drinking after discharge. Patient has had several prior inpatient alcohol rehab admissions with some periods of sobriety in the past especially between 2009 in 2013. He reports he relapsed in 2011 and when placed in transitional housing and began attending AA meetings he was able to stay sober until 2013. Patient had one prior inpatient admission due to suicide attempt with overdose while intoxicated and at that time he was placed on Depakote and trazodone and diagnosed with bipolar disorder. He has not received any outpatient psychiatric follow-up since that time and has been taking the medications and an irregular basis. Patient was admitted for evaluation for depression. Hospital Course: Patient was admitted on a voluntary status, placed on observation, group and activity therapy were ordered. Patient was placed on Ativan 1 mg 3 times a day to manage his withdrawal from alcohol. Patient was evaluated and he was not able to endorse any symptoms of depression, felecia, or psychosis. Patient had been seen over 14 years ago on an inpatient psychiatric unit and at that time and diagnosed with bipolar disorder and patient had continued to use Depakote and trazodone which were prescribed at that time on and off since then. Patient had blood work done which revealed an elevated AST and ALT further laboratory studies were ordered which further revealed an elevated lipase, elevated ferritin and an abnormal alpha-fetoprotein result. Patient also had an ultrasound of his abdomen which revealed heterogeneous liver and a nonspecific pattern correlate for hepatitis, fatty infiltration or diffuse hepatocellular disease. No evidence of focal mass. Gallbladder sludge but no evidence of wall thickening or biliary obstruction. Patient was also seen by gastroenteroloy in consultation. Patient was monitored using the CIWA protocol and his Ativan was lowered to 0.5 mg 3 times a day due to his scores being below 8. Patient continued to improve reporting that he was no longer feeling shaky with sleeping and his appetite had improved. Patient was willing to return to rehabilitation program. Discharge Mental Status:Appearance/Attitude: Patient was neatly and appropriately dressed, he was cooperative Behavior: Patient displayed no psychomotor agitation or retardation and states he was no longer feeling hot and cold nor was he feeling shaky. Speech/Language: Patient's speech was spontaneous and of normal volume and rhythm. Thought Process: Processes were goal-directed and there is no evidence of circumstantial or tangential thought. Thought Content: Patient denied any auditory or visual hallucinations and no delusions or paranoid ideation were elicited. Patient reported that he was not feeling depressed, stated that he was sleeping at night and his appetite improved. He was feeling calmer. Suicidal/Homicidal Ideation: Patient denied any current suicidal or homicidal ideation. Sensorium/Cognition: Patient was alert and oriented to person, place, and time and his memory was grossly intact. Mood/Affect: Patient's mood was euthymic and his affect was appropriate. Insight/Judgement: Insight and judgment are fair. Risk Assessment: Patient has a long history of alcohol use, one prior suicide attempt, several failed rehab treatment. Lab Results 10/28/16 10/28/16 10/28/16 Range/Units 16:48 16:48 16:48 WBC 3.1 L (3.8-10.6) k/uL RBC 4.87 (4.30-5.90) m/uL Hgb 15.3 (13.0-17.5) gm/dL Hct 44.8 (39.0-53.0) % MCV 91.9 (80.0-100.0) fL MCH 31.4 (25.0-35.0) pg MCHC 34.2 (31.0-37.0) g/dL RDW 14.6 (11.5-15.5) % Plt Count 89 L (150-450) k/uL Neutrophils % 62 % Lymphocytes % 30 % Monocytes % 5 % Eosinophils % 1 % Basophils % 1 % Neutrophils # 1.9 (1.3-7.7) k/uL Lymphocytes # 0.9 L (1.0-4.8) k/uL Monocytes # 0.2 (0-1.0) k/uL Eosinophils # 0.0 (0-0.7) k/uL Basophils # 0.0 (0-0.2) k/uL Sodium 138 (137-145) mmol/L Potassium 3.7 (3.5-5.1) mmol/L Chloride 96 L (98-107) mmol/L Carbon Dioxide 23 (22-30) mmol/L Anion Gap 19 mmol/L BUN 20 (9-20) mg/dL Creatinine 0.65 L (0.66-1.25) mg/dL Est GFR (MDRD) Af Amer >60 (>60 ml/min/1.73 sqM) Est GFR (MDRD) Non-Af >60 (>60 ml/min/1.73 sqM) Glucose 106 H (74-99) mg/dL Calcium 8.7 (8.4-10.2) mg/dL Magnesium 1.6 (1.6-2.3) mg/dL Ferritin (18-464) ng/mL Total Bilirubin 1.0 (0.2-1.3) mg/dL AST 233 H (17-59) U/L ALT 139 H (21-72) U/L Alkaline Phosphatase 93 (38-126) U/L Total Protein 7.1 (6.3-8.2) g/dL Albumin 4.9 (3.5-5.0) g/dL Amylase (30-110) U/L Lipase (23-300) U/L Tumor Marker AFP (0.0-7.9) ng/mL TSH 0.937 (0.465-4.680) mIU/L Urine Color Urine Appearance (Clear) Urine pH (5.0-8.0) Ur Specific [place] (1.001-1.035) Urine Protein (Negative) Urine Glucose (UA) (Negative) Urine Ketones (Negative) Urine Blood (Negative) Urine Nitrite (Negative) Urine Bilirubin (Negative) Urine Urobilinogen (<2.0) mg/dL Ur Leukocyte Esterase (Negative) Urine RBC (0-5) /hpf Urine WBC (0-5) /hpf Ur Squamous Epith Cells (0-4) /hpf Urine Bacteria (None) /hpf Hyaline Casts (0-2) /lpf Granular Casts (0) /lpf Urine Mucus (None) /hpf Urine Opiates Screen (NotDetected) Ur Oxycodone Screen (NotDetected) Urine Methadone Screen (NotDetected) Ur Propoxyphene Screen (NotDetected) Ur Barbiturates Screen (NotDetected) U Tricyclic Antidepress (NotDetected) Ur Phencyclidine Scrn (NotDetected) Ur Amphetamines Screen (NotDetected) U Methamphetamines Scrn (NotDetected) U Benzodiazepines Scrn (NotDetected) Urine Cocaine Screen (NotDetected) U Marijuana (THC) Screen (NotDetected) Serum Alcohol 231 mg/dL Hepatitis A IgM Ab Hep Bs Antigen Hep B Core IgM Ab Hep C IgG Ab (Negative) 10/28/16 10/28/16 10/28/16 Range/Units 16:48 16:48 17:37 WBC (3.8-10.6) k/uL RBC (4.30-5.90) m/uL Hgb (13.0-17.5) gm/dL Hct (39.0-53.0) % MCV (80.0-100.0) fL MCH (25.0-35.0) pg MCHC (31.0-37.0) g/dL RDW (11.5-15.5) % Plt Count (150-450) k/uL Neutrophils % % Lymphocytes % % Monocytes % % Eosinophils % % Basophils % % Neutrophils # (1.3-7.7) k/uL Lymphocytes # (1.0-4.8) k/uL Monocytes # (0-1.0) k/uL Eosinophils # (0-0.7) k/uL Basophils # (0-0.2) k/uL Sodium (137-145) mmol/L Potassium (3.5-5.1) mmol/L Chloride (98-107) mmol/L Carbon Dioxide (22-30) mmol/L Anion Gap mmol/L BUN (9-20) mg/dL Creatinine (0.66-1.25) mg/dL Est GFR (MDRD) Af Amer (>60 ml/min/1.73 sqM) Est GFR (MDRD) Non-Af (>60 ml/min/1.73 sqM) Glucose (74-99) mg/dL Calcium (8.4-10.2) mg/dL Magnesium (1.6-2.3) mg/dL Ferritin 1050 H (18-464) ng/mL Total Bilirubin (0.2-1.3) mg/dL AST (17-59) U/L ALT (21-72) U/L Alkaline Phosphatase (38-126) U/L Total Protein (6.3-8.2) g/dL Albumin (3.5-5.0) g/dL Amylase 53 (30-110) U/L Lipase 350 H (23-300) U/L Tumor Marker AFP 19.6 H (0.0-7.9) ng/mL TSH (0.465-4.680) mIU/L Urine Color Yellow Urine Appearance Clear (Clear) Urine pH 5.5 (5.0-8.0) Ur Specific [place] 1.024 (1.001-1.035) Urine Protein 2+ H (Negative) Urine Glucose (UA) Negative (Negative) Urine Ketones 4+ H (Negative) Urine Blood Negative (Negative) Urine Nitrite Negative (Negative) Urine Bilirubin Negative (Negative) Urine Urobilinogen 2.0 (<2.0) mg/dL Ur Leukocyte Esterase Negative (Negative) Urine RBC 1 (0-5) /hpf Urine WBC 1 (0-5) /hpf Ur Squamous Epith Cells <1 (0-4) /hpf Urine Bacteria Rare H (None) /hpf Hyaline Casts 3 H (0-2) /lpf Granular Casts 5 (0) /lpf Urine Mucus Rare H (None) /hpf Urine Opiates Screen Not Detected (NotDetected) Ur Oxycodone Screen Not Detected (NotDetected) Urine Methadone Screen Not Detected (NotDetected) Ur Propoxyphene Screen Not Detected (NotDetected) Ur Barbiturates Screen Not Detected (NotDetected) U Tricyclic Antidepress Not Detected (NotDetected) Ur Phencyclidine Scrn Not Detected (NotDetected) Ur Amphetamines Screen Not Detected (NotDetected) U Methamphetamines Scrn Not Detected (NotDetected) U Benzodiazepines Scrn Not Detected (NotDetected) Urine Cocaine Screen Not Detected (NotDetected) U Marijuana (THC) Screen Not Detected (NotDetected) Serum Alcohol mg/dL Hepatitis A IgM Ab NEGATIVE Hep Bs Antigen Negative Hep B Core IgM Ab NEGATIVE Hep C IgG Ab Negative (Negative) 11/01/16 Range/Units 09:23 WBC (3.8-10.6) k/uL RBC (4.30-5.90) m/uL Hgb (13.0-17.5) gm/dL Hct (39.0-53.0) % MCV (80.0-100.0) fL MCH (25.0-35.0) pg MCHC (31.0-37.0) g/dL RDW (11.5-15.5) % Plt Count (150-450) k/uL Neutrophils % % Lymphocytes % % Monocytes % % Eosinophils % % Basophils % % Neutrophils # (1.3-7.7) k/uL Lymphocytes # (1.0-4.8) k/uL Monocytes # (0-1.0) k/uL Eosinophils # (0-0.7) k/uL Basophils # (0-0.2) k/uL Sodium 138 (137-145) mmol/L Potassium 4.2 (3.5-5.1) mmol/L Chloride 99 (98-107) mmol/L Carbon Dioxide 27 (22-30) mmol/L Anion Gap 12 mmol/L BUN 19 (9-20) mg/dL Creatinine 0.75 (0.66-1.25) mg/dL Est GFR (MDRD) Af Amer >60 (>60 ml/min/1.73 sqM) Est GFR (MDRD) Non-Af >60 (>60 ml/min/1.73 sqM) Glucose 103 H (74-99) mg/dL Calcium 9.7 (8.4-10.2) mg/dL Magnesium (1.6-2.3) mg/dL Ferritin (18-464) ng/mL Total Bilirubin 1.0 (0.2-1.3) mg/dL AST 255 H (17-59) U/L ALT 284 H (21-72) U/L Alkaline Phosphatase 112 (38-126) U/L Total Protein 6.8 (6.3-8.2) g/dL Albumin 4.6 (3.5-5.0) g/dL Amylase 92 (30-110) U/L Lipase 507 H (23-300) U/L Tumor Marker AFP (0.0-7.9) ng/mL TSH (0.465-4.680) mIU/L Urine Color Urine Appearance (Clear) Urine pH (5.0-8.0) Ur Specific [place] (1.001-1.035) Urine Protein (Negative) Urine Glucose (UA) (Negative) Urine Ketones (Negative) Urine Blood (Negative) Urine Nitrite (Negative) Urine Bilirubin (Negative) Urine Urobilinogen (<2.0) mg/dL Ur Leukocyte Esterase (Negative) Urine RBC (0-5) /hpf Urine WBC (0-5) /hpf Ur Squamous Epith Cells (0-4) /hpf Urine Bacteria (None) /hpf Hyaline Casts (0-2) /lpf Granular Casts (0) /lpf Urine Mucus (None) /hpf Urine Opiates Screen (NotDetected) Ur Oxycodone Screen (NotDetected) Urine Methadone Screen (NotDetected) Ur Propoxyphene Screen (NotDetected) Ur Barbiturates Screen (NotDetected) U Tricyclic Antidepress (NotDetected) Ur Phencyclidine Scrn (NotDetected) Ur Amphetamines Screen (NotDetected) U Methamphetamines Scrn (NotDetected) U Benzodiazepines Scrn (NotDetected) Urine Cocaine Screen (NotDetected) U Marijuana (THC) Screen (NotDetected) Serum Alcohol mg/dL Hepatitis A IgM Ab Hep Bs Antigen Hep B Core IgM Ab Hep C IgG Ab (Negative) Discharge Plan: Patient will be discharged and he states that he is unable to return to live with his father and so will be referred to a snf program. Patient has an appointment on November 14 for an intake to the [facility] rehabilitation program. Patient was stable on the day of discharge and so no further Ativan will be prescribed post discharge and no other psychiatric medications are prescribed. After care prior to his intake at [facility] was attempted but none was available due to time constraints or insurance. Patient will be advised to attend [facility] daily until his intake on 11/14. Patient will follow-up with Dr. Montoya and was given a prescription to obtain an AFP/ferritin/CMP prior to his appointment on December 04 at 1 PM. Patient was advised to avoid any alcohol use and had a long discussion with the patient about the long-term effects of alcohol use. Patient Condition at Discharge: Stable Plan - Discharge Summary New Discharge Prescriptions: Continue No Known Home Medications [No Known Home Medications] Discharge Medication List No Known Home Medications [No Known Home Medications] 10/28/16 [History] Follow up Appointment(s)/Referral(s): [facility] [Outside] - 11/14/16 10:00 am (Intake 11/14/16 at 10:00 am ) Sandra Montoya MD [STAFF PHYSICIAN] - 12/04/16 1:00 pm (f/u for labs and imaging of liver) Josiah Nichols MD [Primary Care Provider] - 1 Week Discharge Disposition: HOME SELF-CARE
[2016-11-02 12:56] LABS: Alpha 1 Antitrypsin 80.1 mg/dL (99.0-242.0)
== END 2016-11-01 15:55 | disposition home or self-care (01) | DRG 897 ==
LOC: EC 15:57 → 3MHU 10-29 12:06
PROVIDERS: ADMIT Psychiatry & Neurology Psychiatry; ATTEND Psychiatry & Neurology Psychiatry
DX: F10.239 Alcohol dependence with withdrawal, unspecified (principal); C78.7 Secondary malignant neoplasm of liver and intrahepatic bile duct; D69.6 Thrombocytopenia, unspecified; K70.10 Alcoholic hepatitis without ascites; K74.60 Unspecified cirrhosis of liver; F17.210 Nicotine dependence, cigarettes, uncomplicated; F31.9 Bipolar disorder, unspecified; Y90.7 Blood alcohol level of 200-239 mg/100 ml; Z91.5 Personal history of self-harm
CPT/HCPCS: 36415; 76705; 80053; 80074; 80306; 80320; 81001; 82075; 82103; 82105; 82150; 82390; 82728; 83516; 83690; 83735; 84165; 84443; 85025; 86038

== ENCOUNTER 2016-11-29 10:27 | Inpatient (IN) | payer BC, OTHER ==
[2016-11-29] MEDS ORDERED: HYDROmorphone 1 MG/ML 1 ML SYRINGE IVP STA (11:22)
[2016-11-29] MEDS ORDERED: SODIUM CHLORIDE 0.9% 1,000 ML IV STA (11:22)
[2016-11-29] MEDS ORDERED: ONDANSETRON 4 MG/2 ML VIAL IVP STA (11:22)
[2016-11-29] MEDS ORDERED: LORazepam 2 MG/ML SYRINGE IV STA (11:23)
[2016-11-29] MEDS ORDERED: MAG HYDROX/AL HYDROX/SIMETH 30 ML, HYOSCYAMINE ELIXIR 10 ML, CIMETIDINE HCL 300 MG, LID... PO STA ×4 (11:45)
--- NOTE | 2016-11-29 11:45 | ED ---
Abdominal Pain HPI <Ace Lujan - Last Filed: 11/29/16 14:41> - General Source: patient, RN notes reviewed, old records reviewed Mode of arrival: ambulatory Limitations: no limitations <Judy Espinal - Last Filed: 11/29/16 15:23> - General Chief Complaint: Abdominal Pain Stated Complaint: ALCOHOL WITHDRAWAL, ABDOMINAL PAIN Time Seen by Provider: 11/29/16 11:08 - History of Present Illness Initial Comments: This is a 36-year-old male presents emergency department chief complaint of history of alcohol consumption yesterday, patient reports he's drink a gallon of vodka every day for the past 3 weeks. He reports that yesterday he tried to stop, did have a seizure. Patient states he is not going through withdrawals and having severe abdominal pain. Patient is concerned he may have gastritis or pancreatitis. Denies any nausea or vomiting. Denies any changes in stools. Patient states that he's had no fever or chills area reports he seems very dehydrated sees been urinating very dark urine. (Judy Espinal) - Related Data Home Medications Medication Instructions Recorded Confirmed No Known Home Medications [No 10/28/16 11/29/16 Known Home Medications] Allergies Allergy/AdvReac Type Severity Reaction Status Date / Time No Known Allergies Allergy Verified 11/29/16 11:02 Review of Systems ROS Other: All systems not noted in ROS Statement are negative. <Ace Lujan - Last Filed: 11/29/16 14:41> ROS Other: All systems not noted in ROS Statement are negative. <Judy Espinal - Last Filed: 11/29/16 15:23> ROS Statement: Those systems with pertinent positive or pertinent negative responses have been documented in the HPI. Past Medical History Past Medical History: No Reported History Additional Past Medical History / Comment(s): Episode of acute pancreatitis requiring admission. History of Any Multi-Drug Resistant Organisms: None Reported Past Surgical History: Tonsillectomy Past Psychological History: No Psychological Hx Reported Smoking Status: Current every day smoker Past Alcohol Use History: Abuse, Daily, Heavy Past Drug Use History: None Reported - Past Family History Father Additional Family Medical History / Comment(s): Father is alive at age 57 with no major medical problems. Mother is alive at age of 56 with no major medical problems. Patient has 1 sister with no known medical problems. Patient does not have any children. <Judy Espinal - Last Filed: 11/29/16 15:23> General Exam Limitations: no limitations General appearance: alert, in no apparent distress Head exam: Present: atraumatic, normocephalic, normal inspection Eye exam: Present: normal appearance, PERRL, EOMI. Absent: scleral icterus, conjunctival injection, periorbital swelling ENT exam: Present: normal exam, mucous membranes moist Neck exam: Present: normal inspection. Absent: tenderness, meningismus, lymphadenopathy Respiratory exam: Present: normal lung sounds bilaterally. Absent: respiratory distress, wheezes, rales, rhonchi, stridor Cardiovascular Exam: Present: regular rate, normal rhythm, normal heart sounds. Absent: systolic murmur, diastolic murmur, rubs, gallop, clicks GI/Abdominal exam: Present: soft, tenderness (Right upper quadrant epigastric tenderness.) Extremities exam: Present: normal inspection, full ROM, normal capillary refill. Absent: tenderness, pedal edema, joint swelling, calf tenderness Back exam: Present: normal inspection Neurological exam: Present: alert, oriented X3, CN II-XII intact Psychiatric exam: Present: normal affect, normal mood Skin exam: Present: warm, dry, intact, normal color. Absent: rash <Judy Espinal - Last Filed: 11/29/16 15:23> Course <Ace Lujan - Last Filed: 11/29/16 14:41> <Judy Espinal - Last Filed: 11/29/16 15:23> Vital Signs 11/29/16 11/29/16 11/29/16 10:43 11:46 12:13 Temperature 99.2 F 98.8 F Pulse Rate 133 H 115 H 122 H Respiratory 20 16 18 Rate Blood Pressure 172/98 136/82 138/81 O2 Sat by Pulse 96 98 95 Oximetry 11/29/16 14:09 Temperature 98.9 F Pulse Rate 110 H Respiratory 18 Rate Blood Pressure 143/69 O2 Sat by Pulse 94 L Oximetry - Reevaluation(s) Reevaluation #1: 11/29/16 14:41 I did personally do a [id number] evaluation the patient did discuss the findings with him the patient is demonstrating tremors at this time. He will be admitted to discuss the case with the hospitalist. (Ace Lujan) Medical Decision Making - Lab Data Result diagrams: 11/29/16 11:40 11/29/16 11:40 <Ace Lujan - Last Filed: 11/29/16 14:41> - Lab Data Result diagrams: 11/29/16 11:40 11/29/16 11:40 - Radiology Data Radiology results: report reviewed <Judy Espinal - Last Filed: 11/29/16 15:23> - Medical Decision Making 36-year-old male, chief complaint of abdominal pain for the past day and half. Patient reports he's been drinking heavily for the past 3 weeks. He reports he drinks approximately a day. Patient states that he had a seizure yesterday. He did arrive to emergency Department acute withdrawals. Lab work was obtained and patient was given Ativan. Lab work showed significant dehydration, prerenal azotemia. He did also have an elevated bilirubin, right upper quadrant ultrasound was obtained and shows gallbladder sludge, but no evidence of acute obstruction. Patient was informed of these results. Patient will be admitted for acute renal injury, biliary sludge, and impending DTs. (Judy Espinal) - Lab Data Lab Results 11/29/16 11/29/16 11/29/16 Range/Units 11:40 11:40 11:40 WBC 10.0 (3.8-10.6) k/uL RBC 5.78 (4.30-5.90) m/uL Hgb 18.3 H D (13.0-17.5) gm/dL Hct 52.9 (39.0-53.0) % MCV 91.5 (80.0-100.0) fL MCH 31.7 (25.0-35.0) pg MCHC 34.6 (31.0-37.0) g/dL RDW 14.8 (11.5-15.5) % Plt Count 116 L (150-450) k/uL Neutrophils % 87 % Lymphocytes % 7 % Monocytes % 4 % Eosinophils % 0 % Basophils % 1 % Neutrophils # 8.7 H (1.3-7.7) k/uL Lymphocytes # 0.7 L (1.0-4.8) k/uL Monocytes # 0.4 (0-1.0) k/uL Eosinophils # 0.0 (0-0.7) k/uL Basophils # 0.1 (0-0.2) k/uL Sodium 130 L (137-145) mmol/L Potassium 3.2 L (3.5-5.1) mmol/L Chloride 78 L* (98-107) mmol/L Carbon Dioxide 30 (22-30) mmol/L Anion Gap 22 mmol/L BUN 45 H (9-20) mg/dL Creatinine 0.91 (0.66-1.25) mg/dL Est GFR (MDRD) Af Amer >60 (>60 ml/min/1.73 sqM) Est GFR (MDRD) Non-Af >60 (>60 ml/min/1.73 sqM) Glucose 107 H (74-99) mg/dL Calcium 10.3 H (8.4-10.2) mg/dL Magnesium (1.6-2.3) mg/dL Total Bilirubin 2.7 H (0.2-1.3) mg/dL AST 125 H (17-59) U/L ALT 88 H (21-72) U/L Alkaline Phosphatase 71 (38-126) U/L Total Protein 9.0 H (6.3-8.2) g/dL Albumin 5.8 H (3.5-5.0) g/dL Amylase 47 (30-110) U/L Lipase 206 (23-300) U/L Urine Color Yellow Urine Appearance Clear (Clear) Urine pH 6.5 (5.0-8.0) Ur Specific [place] 1.026 (1.001-1.035) Urine Protein 3+ H (Negative) Urine Glucose (UA) Negative (Negative) Urine Ketones 3+ H (Negative) Urine Blood Negative (Negative) Urine Nitrite Negative (Negative) Urine Bilirubin 1+ H (Negative) Urine Urobilinogen 3.0 (<2.0) mg/dL Ur Leukocyte Esterase Negative (Negative) Urine RBC 1 (0-5) /hpf Urine WBC 2 (0-5) /hpf Ur Squamous Epith Cells <1 (0-4) /hpf Hyaline Casts 16 H (0-2) /lpf Urine Mucus Few H (None) /hpf //17 Range/Units 11:40 WBC (3.8-10.6) k/uL RBC (4.30-5.90) m/uL Hgb (13.0-17.5) gm/dL Hct (39.0-53.0) % MCV (80.0-100.0) fL MCH (25.0-35.0) pg MCHC (31.0-37.0) g/dL RDW (11.5-15.5) % Plt Count (150-450) k/uL Neutrophils % % Lymphocytes % % Monocytes % % Eosinophils % % Basophils % % Neutrophils # (1.3-7.7) k/uL Lymphocytes # (1.0-4.8) k/uL Monocytes # (0-1.0) k/uL Eosinophils # (0-0.7) k/uL Basophils # (0-0.2) k/uL Sodium (137-145) mmol/L Potassium (3.5-5.1) mmol/L Chloride (98-107) mmol/L Carbon Dioxide (22-30) mmol/L Anion Gap mmol/L BUN (9-20) mg/dL Creatinine (0.66-1.25) mg/dL Est GFR (MDRD) Af Amer (>60 ml/min/1.73 sqM) Est GFR (MDRD) Non-Af (>60 ml/min/1.73 sqM) Glucose (74-99) mg/dL Calcium (8.4-10.2) mg/dL Magnesium 2.0 (1.6-2.3) mg/dL Total Bilirubin (0.2-1.3) mg/dL AST (17-59) U/L ALT (21-72) U/L Alkaline Phosphatase (38-126) U/L Total Protein (6.3-8.2) g/dL Albumin (3.5-5.0) g/dL Amylase (30-110) U/L Lipase (23-300) U/L Urine Color Urine Appearance (Clear) Urine pH (5.0-8.0) Ur Specific [place] (1.001-1.035) Urine Protein (Negative) Urine Glucose (UA) (Negative) Urine Ketones (Negative) Urine Blood (Negative) Urine Nitrite (Negative) Urine Bilirubin (Negative) Urine Urobilinogen (<2.0) mg/dL Ur Leukocyte Esterase (Negative) Urine RBC (0-5) /hpf Urine WBC (0-5) /hpf Ur Squamous Epith Cells (0-4) /hpf Hyaline Casts (0-2) /lpf Urine Mucus (None) /hpf - Radiology Data Gallbladder sludge without sonographic evidence of cholecystitis. Habits heterogeneous hepatic echo texture, most commonly related to hepatic steatosis. (Judy Espinal) Disposition <Ace Lujan - Last Filed: 11/29/16 14:41> Time of Disposition: 14:55 <Judy Espinal - Last Filed: 11/29/16 15:23> Clinical Impression: Alcohol withdrawal, Biliary sludge, Renal injury, Dehydration Disposition: ADMITTED IP TO THIS HOSP Condition: Good Referrals: Josiah Nichols MD [Primary Care Provider] - 1-2 days
[2016-11-29 12:07] LABS: ALT 88 U/L (21-72); AST 125 U/L (17-59); Alkaline Phosphatase 71 U/L (38-126); Amylase 47 U/L (30-110); Anion Gap 22 mmol/L; Blood Urea Nitrogen 45 mg/dL (9-20); Calcium 10.3 mg/dL (8.4-10.2); Carbon Dioxide 30 mmol/L (22-30); Glucose 107 mg/dL (74-99); Non-African American GFR(MDRD) >60 (>60 ml/min/1.73 sqM); Potassium 3.2 mmol/L (3.5-5.1); Sodium 130 mmol/L (137-145); Total Bilirubin 2.7 mg/dL (0.2-1.3)
[2016-11-29 12:18] LABS: Appearance,Urine Clear (Clear); Bilirubin,Urine 1+ (Negative); Glucose,Urine (UA) Negative (Negative); Ketones,Urine 3+ (Negative); Leukocyte Esterase,Urine Negative (Negative); Mucus,Urine Few /hpf; Nitrite,Urine Negative (Negative); PH, Urine 6.5 (5.0-8.0); Particle Count 7167; Protein,Urine 3+ (Negative); RBC,Urine 1 /hpf (0-5); Specific Gravity,Urine 1.026 (1.001-1.035); Squamous Epithelial Cell,Urine <1 /hpf (0-4); UA Billing (MACRO vs. MICRO) MICRO; WBC,Urine 2 /hpf (0-5)
[2016-11-29 12:22] LABS: Basophils # (A) 0.1 k/uL (0-0.2); Basophils % (A) 1 %; CH 33.9; CHCM 37.2; Chloride 78 mmol/L (98-107); Eosinophils % (A) 0 %; HCT 52.9 % (39.0-53.0); HDW 2.41; Luc # (Auto) 0.07; Luc % (Auto) 1; Lymphocytes # (A) 0.7 k/uL (1.0-4.8); Lymphocytes % (A) 7 %; MCH 31.7 pg (25.0-35.0); MCHC 34.6 g/dL (31.0-37.0); MCV 91.5 fL (80.0-100.0); Mean Platelet Volume 8.7; Monocytes # (A) 0.4 k/uL (0-1.0); Monocytes % (A) 4 %; Neutrophils # (A) 8.7 k/uL (1.3-7.7); Neutrophils % (A) 87 %; RBC 5.78 m/uL (4.30-5.90); RDW 14.8 % (11.5-15.5); WBC (Perox) 9.96
[2016-11-29 12:28] LABS: HGB 18.3 gm/dL (13.0-17.5)
[2016-11-29] MEDS ORDERED: THIAMINE 100 MG/ML 2 ML VIAL IM STA (13:05)
[2016-11-29] MEDS ORDERED: LORazepam 2 MG/ML SYRINGE IV PRN ×2 (13:05)
[2016-11-29] MEDS ORDERED: 0.9% NACL WITH KCL 20 MEQ/L 1,000 ML with MVI, ADULT NO.4 WITH VIT K 10 ML, THIAMINE 10... IV SCH ×4 (13:30)
--- NOTE | 2016-11-29 14:10 | US ---
EXAMINATION TYPE: US gallbladder DATE OF EXAM: 11/29/2016 COMPARISON: US 2017 CLINICAL HISTORY: Pain. EC patient with abdominal pain, nausea and vomiting today after drinking vodk a for multiple days EXAM MEASUREMENTS: Liver Length: 18.0 cm Gallbladder Wall: 0.1 cm CBD: 0.4 cm Right Kidney: 10.7 x 5.3 x 4.5 cm Pancreas: wnl Liver: enlarged and heterogenous and hyperechoic most compatible with hepatic steatosis, which limit s evaluation for underlying masses. Gallbladder: small amount of sludge in fundus Evidence for sonographic Carrasco's sign: No CBD: wnl Right Kidney: wnl IMPRESSION: 1. Gallbladder sludge without sonographic evidence of cholecystitis. 2. Heterogenous hepatic echotexture most commonly related to hepatic steatosis.
[2016-11-29] MEDS ORDERED: Acetaminophen-Codeine 300-30mg TAB PO PRN (14:56)
[2016-11-29] MEDS ORDERED: ONDANSETRON 4 MG/2 ML VIAL IVP PRN (14:56)
[2016-11-29] MEDS ORDERED: NALOXONE 0.4 MG/ML 1 ML VIAL IV PRN (14:56)
[2016-11-29] MEDS ORDERED: KETOROLAC 30 MG/ML 1 ML VIAL IVP PRN (14:56)
[2016-11-29] MEDS ORDERED: ACETAMINOPHEN TAB 325 MG TAB PO PRN (14:56)
[2016-11-29] MEDS ORDERED: IBUPROFEN 400 MG TAB PO PRN (14:56)
[2016-11-29] MEDS: SODIUM CHLORIDE 0.9% 1,000 ML IV SCH (17:43)
[2016-11-29] MEDS: THIAMINE 100 MG TAB PO SCH (18:15)
[2016-11-29] MEDS: NICOTINE 21MG/24HR PATCH TRANSDERM SCH (20:35)
[2016-11-29] MEDS: LORazepam 2 MG/ML SYRINGE IV PRN (20:46)
[2016-11-29] MEDS ORDERED: POTASSIUM CHLORIDE ER 20 MEQ TAB.ER PO STA (21:11)
[2016-11-29] MEDS ORDERED: POTASSIUM CHLORIDE ER 20 MEQ TAB.ER PO ONE (23:00)
[2016-11-30] MEDS: LORazepam 2 MG/ML SYRINGE IV PRN ×2 (02:40→09:05)
[2016-11-30] MEDS: SODIUM CHLORIDE 0.9% 1,000 ML IV SCH ×2 (08:34)
[2016-11-30 08:43] LABS: Basophils % (A) 0 %; CH 32.5; CHCM 35.5; Eosinophils # (A) 0.1 k/uL (0-0.7); Eosinophils % (A) 1 %; HDW 2.52; Luc % (Auto) 2; Lymphocytes % (A) 44 %; MCH 32.1 pg (25.0-35.0); MCV 91.8 fL (80.0-100.0); Mean Platelet Volume 8.1; Monocytes # (A) 0.2 k/uL (0-1.0); Monocytes % (A) 5 %; Neutrophils # (A) 2.2 k/uL (1.3-7.7); Neutrophils % (A) 47 %; RBC 4.46 m/uL (4.30-5.90); RDW 13.5 % (11.5-15.5); WBC 4.7 k/uL (3.8-10.6); WBC (Perox) 4.57
[2016-11-30 08:51] LABS: Anion Gap 10 mmol/L; Blood Urea Nitrogen 30 mg/dL (9-20); Calcium 8.6 mg/dL (8.4-10.2); Carbon Dioxide 30 mmol/L (22-30); Chloride 95 mmol/L (98-107); Glucose 85 mg/dL (74-99); Magnesium 2.3 mg/dL (1.6-2.3); Non-African American GFR(MDRD) >60 (>60 ml/min/1.73 sqM); Potassium 3.9 mmol/L (3.5-5.1); Sodium 135 mmol/L (137-145)
[2016-11-30 08:58] LABS: HGB 14.3 gm/dL (13.0-17.5)
[2016-11-30] MEDS ORDERED: PANTOPRAZOLE 40 MG/10 ML VIAL IV SCH (09:00)
[2016-11-30] MEDS: NICOTINE 21MG/24HR PATCH TRANSDERM SCH (09:01)
[2016-11-30 10:05] LABS: Manual Review Performed; RBC Morphology Normal
[2016-11-30] MEDS: THIAMINE 100 MG TAB PO SCH (13:38)
[2016-11-30] MEDS ORDERED: MAG HYDROX/AL HYDROX/SIMETH 30 ML, HYOSCYAMINE ELIXIR 10 ML, CIMETIDINE HCL 300 MG PO STA ×3 (13:58)
--- NOTE | 2016-11-30 14:10 | P.HPIM ---
History of Present Illness H&P Date: 11/30/16 (Discharge summary as well) Chief Complaint: Abdominal pain His is a 36-year-old gentleman who has a history of alcohol overuse currently drinks about half a gallon of vodka every day. Denies having any suicidal or homicidal ideations. Patient has been addicted to alcohol prolonged period of time Patient states that he has been having intermittent episodes of nausea vomiting no blood was noted Patient also complains of vague abdominal pain over the same period of time Patient's last drink was 3 days ago has apparently had a seizure at home Patient has been monitored for the last 24 hours without any recurrent episodes. Patient seems score is less than 5 at this time No new overnight events denies having headaches chest pain difficulty breathing nausea or urinary urgency or frequency. Review of Systems All systems: negative (Noted in HPI) Past Medical History Past Medical History: No Reported History Additional Past Medical History / Comment(s): Episode of acute pancreatitis requiring admission. History of Any Multi-Drug Resistant Organisms: None Reported Past Surgical History: Tonsillectomy Past Anesthesia/Blood Transfusion Reactions: No Reported Reaction Past Psychological History: No Psychological Hx Reported Smoking Status: Current every day smoker Past Alcohol Use History: Abuse, Daily, Heavy Additional Past Alcohol Use History / Comment(s): Patient is a smoker 2 packs of cigarettes per day since age 21. Patient drinks a half gallon to one gallon of vodka per day on and off for many years. He denies any current marijuana or street drug use. 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 He lives with his father. He does not have any children. Past Drug Use History: None Reported - Past Family History Father Additional Family Medical History / Comment(s): Father is alive at age 57 with no major medical problems. Mother is alive at age of 56 with no major medical problems. Patient has 1 sister with no known medical problems. Patient does not have any children. Medications and Allergies Allergies Allergy/AdvReac Type Severity Reaction Status Date / Time No Known Allergies Allergy Verified 11/29/16 11:02 Physical Exam Vitals: Vital Signs Temp Pulse Pulse Resp BP BP Pulse Ox 11/30/16 07:00 97.5 F L 102 H 18 113/66 98 11/30/16 00:00 18 11/29/16 23:00 98.1 F 74 16 132/77 98 11/29/16 16:26 98.5 F 97 18 138/79 96 11/29/16 15:25 98.5 F 95 18 124/80 94 L 11/29/16 14:09 98.9 F 110 H 18 143/69 94 L Intake and Output 11/29/16 11/30/16 11/30/16 22:59 06:59 14:59 Intake Total 240 100 750 Balance 240 100 750 Intake: Oral 240 100 750 Other: Voiding Method Toilet # Voids 1 1 1 Physical exam Gen. appearance oriented 3 in no distress Neck is supple no JVD Lungs good air entry clear to auscultation no rhonchi or wheezing Heart S1-S2 heard regular rate and rhythm no murmurs appreciated Abdomen diffusely tender to palpation or rebound tenderness Neurologically cranial nerves II-12 grossly intact no focal motor or sensory deficits noted Skin no abnormalities appreciated Results CBC & Chem 7: 11/30/16 07:50 11/30/16 07:50 Labs: Abnormal Lab Results - Last 24 Hours (Table) 11/30/16 11/30/16 Range/Units 07:50 07:50 Plt Count 81 L (150-450) k/uL Sodium 135 L (137-145) mmol/L Chloride 95 L (98-107) mmol/L BUN 30 H (9-20) mg/dL Thrombosis Risk Factor Assmnt - Choose All That Apply Each Factor Represents 1 point: Medical pt on bed rest Thrombosis Risk Factor Assessment Total Risk Factor Score: 1 Thrombosis Risk Factor Assessment Level: Low Risk Assessment and Plan Plan: #1 alcohol withdrawal seizures #2 hypochloremia #3 acute gastritis #4 dehydration Plan Patient does not have suicidal or homicidal ideation alcohol cessation counseling was given Patient will be given a GI cocktail will be discharged on Librium tablets and discussed a taper Discussed not using Librium with alcohol Patient will also given Pepcid 20 mg by mouth twice a day
[2016-11-30 14:30] VITALS: BP 118/71; PULSE 112; RESP 20; TEMP 98
--- NOTE | 2016-12-06 10:07 | CDI ---
In responding to this query, please exercise your independent professional judgment. The [facility] Coding Staff and Clinical Documentation Specialists appreciate your assistance in clarifying documentation, maintaining compliance with coding guidelines, accurately documenting patients condition and capturing severity of illness. The fact that a question is asked does not imply that any particular answer is desired or expected. Communication forms are a method of clarifying documentation and are not made part of the Legal Health Record. Thank you in advance for your clarification. Last Revision, February 2015 Rashad Tapia [address] [place] [address] Documentation Clarification Form Date: 12/06/2016 9:47:00 AM From: [facility] Admit Date: 11/29/2016 2:41:00 PM Patient Name: Geo Bishop Visit Number: [id number] Discharge Date: 11-30-16 Dr. Gary Day: Patient was given Discharge Instructions re: KELY, including KELY disease handout. Please clarify if patient has KELY = yes, no, undetermined. Patient presents with a BUN of: 45 on 11-29, 30 on 11-30. Creatinine = .91 on , .77 on 11-30. Urine on 11-29-16 shows 3+ protein. History/Risk Factors: alcoholism withdrawal, possible seizure at home, dehydration, hypochloremia, history of drug abuse, smoker. Clinical Indicators: See labs Treatment: none Consults: None IVF: Yes Other--U/S gallbladder shows right kidney wnl. In order to capture the severity of condition, please clarify if the condition signifies: Acute renal failure Please specify (if known): Cortical, Medullary, or Tubular Necrosis? Acute kidney injury Acute on chronic renal failure Chronic renal failure, please stage Chronic kidney disease (CKD) and please stage Stage 1 GFR >90 Stage 2 GFR 60-89 Stage 3 GFR 30-59 Stage 4 GFR 15-29 Stage 5 GFR <15 ESRD Unable to determine Other, specify Please document in your H&P/D.Summary in order to capture severity of illness and risk of mortality. Include clinical findings that support your diagnosis. If you have a question about this query, please contact Yancy Tierney, Tube Puller at [phone] between 8am-5pm. FYI: Press F11 to launch patient chart. PT does not have KELY MTDD
== END 2016-11-30 15:14 | disposition home or self-care (01) | DRG 897 ==
LOC: EC 10:27 → 4MS4W 14:41
PROVIDERS: ADMIT Internal Medicine; ATTEND Internal Medicine
DX: F10.239 Alcohol dependence with withdrawal, unspecified (principal); E87.8 Other disorders of electrolyte and fluid balance, not elsewhere classified; K29.00 Acute gastritis without bleeding; E86.0 Dehydration; K83.8 Other specified diseases of biliary tract; F17.210 Nicotine dependence, cigarettes, uncomplicated; Z87.19 Personal history of other diseases of the digestive system; Z90.89 Acquired absence of other organs
CPT/HCPCS: 36415; 76705; 80048; 80053; 81001; 82150; 83690; 83735; 85025; 96361; 96365; 96366; 96372; 96375; 99285

== ENCOUNTER 2016-12-24 09:38 | Inpatient (IN) | payer BC, OTHER ==
[2016-12-24] MEDS ORDERED: THIAMINE 100 MG/ML 2 ML VIAL IM STA (09:55)
[2016-12-24] MEDS ORDERED: SODIUM CHLORIDE 0.9% 1,000 ML IV STA (09:55)
[2016-12-24] MEDS ORDERED: ONDANSETRON 4 MG/2 ML VIAL IVP STA (09:55)
[2016-12-24] MEDS ORDERED: LORazepam 2 MG/ML SYRINGE IV PRN ×2 (09:55)
--- NOTE | 2016-12-24 10:04 | ED ---
General Adult HPI - General Chief complaint: Abdominal Pain Stated complaint: ETOH withdrawl Time Seen by Provider: 12/24/16 09:52 Source: patient, RN notes reviewed Mode of arrival: ambulatory Limitations: no limitations - History of Present Illness Initial comments: Patient 36-year-old male smelling past medical history for alcoholism, who presents emergency room today with chief complaint fall withdrawal. He states last drink was yesterday afternoon. States he is trying to stop drinking. He states he would like to get into a rehab program. Patient does admit to increased abdominal pain with nausea vomiting today. States the pain is diffuse throughout the abdomen and crampy in nature. Patient denies any other complaints or sutured symptoms. Patient denies any recent fever, chills, shortness of breath, chest pain, back pain, numbness or tingling, dysuria or hematuria, constipation or diarrhea, headaches or visual changes, or any other complaints. - Related Data Home Medications Medication Instructions Recorded Confirmed No Known Home Medications [No 12/24/16 12/24/16 Known Home Medications] Allergies Allergy/AdvReac Type Severity Reaction Status Date / Time No Known Allergies Allergy Verified 12/24/16 09:57 Review of Systems ROS Statement: Those systems with pertinent positive or pertinent negative responses have been documented in the HPI. ROS Other: All systems not noted in ROS Statement are negative. Past Medical History Past Medical History: No Reported History Additional Past Medical History / Comment(s): Episode of acute pancreatitis requiring admission. History of Any Multi-Drug Resistant Organisms: None Reported Past Surgical History: Tonsillectomy Past Anesthesia/Blood Transfusion Reactions: No Reported Reaction Past Psychological History: No Psychological Hx Reported Smoking Status: Current every day smoker Past Alcohol Use History: Abuse, Daily, Heavy Past Drug Use History: None Reported - Past Family History Father Additional Family Medical History / Comment(s): Father is alive at age 57 with no major medical problems. Mother is alive at age of 56 with no major medical problems. Patient has 1 sister with no known medical problems. Patient does not have any children. General Exam - General Exam Comments Initial Comments: General: The patient is awake and alert, in no distress, and does not appear acutely ill. Eye: Pupils are equal, round and reactive to light, extra-ocular movements are intact. No nystagmus. There is normal conjunctiva bilaterally. No signs of icterus. Ears, nose, mouth and throat: There are moist mucous membranes and no oral lesions. Neck: The neck is supple, there is no tenderness or JVD. Cardiovascular: There is a regular rate and rhythm. No murmur, rub or gallop is appreciated. Respiratory: Lungs are clear to auscultation, respirations are non-labored, breath sounds are equal. No wheezes, stridor, rales, or rhonchi. Gastrointestinal: Soft, non-distended, non-tender abdomen without masses or organomegaly noted. There is no rebound or guarding present. No CVA tenderness. Bowel sounds are unremarkable. Musculoskeletal: Normal ROM, no tenderness. Strength 5/5. Sensation intact. Pulses equal bilaterally 2+. Neurological: A&O x 3. CN II-XII intact, There are no obvious motor or sensory deficits. Coordination appears grossly intact. Speech is normal. Skin: Skin is warm and dry and no rashes or lesions are noted. Psychiatric: Cooperative, appropriate mood & affect, normal judgment. Limitations: no limitations Course Vital Signs 12/24/16 09:47 Temperature 97.8 F Pulse Rate 108 H Respiratory 20 Rate Blood Pressure 113/65 O2 Sat by Pulse 100 Oximetry Medical Decision Making - Medical Decision Making Patient's labs been reviewed. Patient resting comfortably in the stretcher. Case discussed with attending physician Dr. Ramesh. Patient will be admitted for further hydration. - Lab Data Result diagrams: 12/24/16 09:55 12/24/16 09:55 Lab Results 12/24/16 12/24/16 12/24/16 Range/Units 09:55 09:55 09:55 WBC 6.6 (3.8-10.6) k/uL RBC 4.76 (4.30-5.90) m/uL Hgb 15.4 (13.0-17.5) gm/dL Hct 41.3 (39.0-53.0) % MCV 86.8 D (80.0-100.0) fL MCH 32.4 (25.0-35.0) pg MCHC 37.3 H (31.0-37.0) g/dL RDW 13.8 (11.5-15.5) % Plt Count 196 D (150-450) k/uL Neutrophils % 58 % Lymphocytes % 30 % Monocytes % 9 % Eosinophils % 1 % Basophils % 1 % Neutrophils # 3.8 (1.3-7.7) k/uL Lymphocytes # 2.0 (1.0-4.8) k/uL Monocytes # 0.6 (0-1.0) k/uL Eosinophils # 0.1 (0-0.7) k/uL Basophils # 0.0 (0-0.2) k/uL Manual Slide Review Performed Hyperchromasia Marked Anisocytosis (manual) Present Sodium 117 L* (137-145) mmol/L Potassium 3.0 L* (3.5-5.1) mmol/L Chloride 64 L* (98-107) mmol/L Carbon Dioxide 31 H (22-30) mmol/L Anion Gap 22 mmol/L BUN 16 (9-20) mg/dL Creatinine 0.66 (0.66-1.25) mg/dL Est GFR (MDRD) Af Amer >60 (>60 ml/min/1.73 sqM) Est GFR (MDRD) Non-Af >60 (>60 ml/min/1.73 sqM) Glucose 103 H (74-99) mg/dL Calcium 9.3 (8.4-10.2) mg/dL Magnesium 2.0 (1.6-2.3) mg/dL Total Bilirubin 2.3 H (0.2-1.3) mg/dL AST 98 H (17-59) U/L ALT 111 H (21-72) U/L Alkaline Phosphatase 114 (38-126) U/L Total Protein 8.1 (6.3-8.2) g/dL Albumin 5.4 H (3.5-5.0) g/dL Amylase 65 (30-110) U/L Lipase 461 H (23-300) U/L Urine Color Urine Appearance (Clear) Urine pH (5.0-8.0) Ur Specific [place] (1.001-1.035) Urine Protein (Negative) Urine Glucose (UA) (Negative) Urine Ketones (Negative) Urine Blood (Negative) Urine Nitrite (Negative) Urine Bilirubin (Negative) Urine Urobilinogen (<2.0) mg/dL Ur Leukocyte Esterase (Negative) Urine RBC (0-5) /hpf Urine WBC (0-5) /hpf Ur Squamous Epith Cells (0-4) /hpf Hyaline Casts (0-2) /lpf Urine Mucus (None) /hpf Serum Alcohol 33 mg/dL 12/24/16 Range/Units 10:05 WBC (3.8-10.6) k/uL RBC (4.30-5.90) m/uL Hgb (13.0-17.5) gm/dL Hct (39.0-53.0) % MCV (80.0-100.0) fL MCH (25.0-35.0) pg MCHC (31.0-37.0) g/dL RDW (11.5-15.5) % Plt Count (150-450) k/uL Neutrophils % % Lymphocytes % % Monocytes % % Eosinophils % % Basophils % % Neutrophils # (1.3-7.7) k/uL Lymphocytes # (1.0-4.8) k/uL Monocytes # (0-1.0) k/uL Eosinophils # (0-0.7) k/uL Basophils # (0-0.2) k/uL Manual Slide Review Hyperchromasia Anisocytosis (manual) Sodium (137-145) mmol/L Potassium (3.5-5.1) mmol/L Chloride (98-107) mmol/L Carbon Dioxide (22-30) mmol/L Anion Gap mmol/L BUN (9-20) mg/dL Creatinine (0.66-1.25) mg/dL Est GFR (MDRD) Af Amer (>60 ml/min/1.73 sqM) Est GFR (MDRD) Non-Af (>60 ml/min/1.73 sqM) Glucose (74-99) mg/dL Calcium (8.4-10.2) mg/dL Magnesium (1.6-2.3) mg/dL Total Bilirubin (0.2-1.3) mg/dL AST (17-59) U/L ALT (21-72) U/L Alkaline Phosphatase (38-126) U/L Total Protein (6.3-8.2) g/dL Albumin (3.5-5.0) g/dL Amylase (30-110) U/L Lipase (23-300) U/L Urine Color Yellow Urine Appearance Clear (Clear) Urine pH 8.0 (5.0-8.0) Ur Specific [place] 1.015 (1.001-1.035) Urine Protein 1+ H (Negative) Urine Glucose (UA) Negative (Negative) Urine Ketones 3+ H (Negative) Urine Blood Negative (Negative) Urine Nitrite Negative (Negative) Urine Bilirubin Negative (Negative) Urine Urobilinogen 8.0 (<2.0) mg/dL Ur Leukocyte Esterase Negative (Negative) Urine RBC <1 (0-5) /hpf Urine WBC 5 (0-5) /hpf Ur Squamous Epith Cells <1 (0-4) /hpf Hyaline Casts 4 H (0-2) /lpf Urine Mucus Rare H (None) /hpf Serum Alcohol mg/dL Disposition Clinical Impression: Hyponatremia, Hypokalemia, Alcohol withdrawal Disposition: ADMITTED IP TO THIS HOSP Condition: Stable Referrals: Josiah Nichols MD [Primary Care Provider] - 1-2 days Time of Disposition: 11:39
[2016-12-24] MEDS: LORazepam 2 MG/ML SYRINGE IV PRN ×3 (10:09→20:13)
[2016-12-24 10:10] LABS: Basophils % (A) 1 %; CH 34.9; CHCM 40.3; Eosinophils # (A) 0.1 k/uL (0-0.7); Eosinophils % (A) 1 %; HCT 41.3 % (39.0-53.0); HGB 15.4 gm/dL (13.0-17.5); Hyperchromasia Marked; Luc # (Auto) 0.11; Luc % (Auto) 2; Lymphocytes % (A) 30 %; MCH 32.4 pg (25.0-35.0); MCHC 37.3 g/dL (31.0-37.0); Mean Platelet Volume 6.9; Monocytes # (A) 0.6 k/uL (0-1.0); Monocytes % (A) 9 %; Neutrophils # (A) 3.8 k/uL (1.3-7.7); Neutrophils % (A) 58 %; RBC 4.76 m/uL (4.30-5.90); RDW 13.8 % (11.5-15.5); WBC 6.6 k/uL (3.8-10.6); WBC (Perox) 6.73
[2016-12-24 10:15] LABS: MCV 86.8 fL (80.0-100.0)
[2016-12-24 10:19] LABS: ALT 111 U/L (21-72); AST 98 U/L (17-59); Alcohol 33 mg/dL; Alkaline Phosphatase 114 U/L (38-126); Amylase 65 U/L (30-110); Blood Urea Nitrogen 16 mg/dL (9-20); Calcium 9.3 mg/dL (8.4-10.2); Carbon Dioxide 31 mmol/L (22-30); Glucose 103 mg/dL (74-99); Non-African American GFR(MDRD) >60 (>60 ml/min/1.73 sqM); Total Bilirubin 2.3 mg/dL (0.2-1.3); Total Protein 8.1 g/dL (6.3-8.2)
[2016-12-24 10:20] LABS: Anion Gap 22 mmol/L
[2016-12-24 10:30] LABS: Sodium 117 mmol/L (137-145)
[2016-12-24 10:31] LABS: Chloride 64 mmol/L (98-107)
[2016-12-24] MEDS ORDERED: SODIUM CHLORIDE 0.9% 1,000 ML with MVI, ADULT NO.4 WITH VIT K 10 ML, THIAMINE 100 MG, F... IV ONE ×4 (10:37)
[2016-12-24] MEDS ORDERED: POTASSIUM CHLORIDE ER 20 MEQ TAB.ER PO STA (10:37)
[2016-12-24 10:39] LABS: Manual Review Performed
[2016-12-24 10:44] LABS: Appearance,Urine Clear (Clear); Bilirubin,Urine Negative (Negative); Glucose,Urine (UA) Negative (Negative); Ketones,Urine 3+ (Negative); Leukocyte Esterase,Urine Negative (Negative); Mucus,Urine Rare /hpf; Nitrite,Urine Negative (Negative); Particle Count 1824; Protein,Urine 1+ (Negative); RBC,Urine <1 /hpf (0-5); Specific Gravity,Urine 1.015 (1.001-1.035); Squamous Epithelial Cell,Urine <1 /hpf (0-4); UA Billing (MACRO vs. MICRO) MICRO; WBC,Urine 5 /hpf (0-5)
--- NOTE | 2016-12-24 10:47 | XR ---
Abdomen HISTORY: Abdomen pain Frontal view of the abdomen on 2 images Correlation to ultrasound gallbladder 11/29/2016 Lung bases are clear. There is no pneumoperitoneum or bowel obstruction evident. No pathologic calcif ication. Probable phleboliths present within the pelvis. IMPRESSION: Nonspecific bowel gas pattern.
[2016-12-24] MEDS ORDERED: MORPHINE SULFATE 4 MG/ML SYRINGE IV PRN (11:30)
[2016-12-24] MEDS ORDERED: BARIUM SULFATE 450 ML ORAL.SUSP BOTTLE PO PRN (12:46)
[2016-12-24] MEDS ORDERED: RX INFO: IV CONTRAST WAS GIVEN 1 EACH MISC MISCELLANE PRN (12:46)
--- NOTE | 2016-12-24 12:58 | P.HPIM ---
History of Present Illness H&P Date: 12/24/16 Chief Complaint: abdominal pain and nausea The patient is a 36-year-old male with a known history of severe alcohol dependence, who presents to the ER via private vehicle with complaints of Worsening generalized abdominal pain for the last 5 days he reports severe constant crampy pain with radiation to his back associated symptoms of nausea And episodes of nonbloody bilious emesis over the last week, she reports increasing anorexia and reports is not a been able to eat the last 5 days. He denies Fevers chills night sweats, denies any diarrhea or constipation or bright red blood or dark melanotic stools. He also complains of pyrosis-type symptoms burning During this time. He denies any chest pain or shortness of breath, he complains of increasing fatigue and weakness. He reports drinking approximately 1 gallon of Vodka daily which was last drink was yesterday morning. Review of his records indicate that the patient was seen by Dr. Montoya was scheduled to help follow-up appointment 12/04 workup was possible liver cirrhosis and Possible hepatocellular disease. Patient did not keep this appointment reportedly due to transportation issues. On presentation in the ER the patient was apparently, tremulous and was given Ativan. Workup was consistent with mild pancreatitis with elevated serum lipase of 469. As also noted to be severely hyponatremic and hypokalemic and dehydrated on exam Review of Systems All systems: negative Constitutional: Reports poor appetite, Reports weakness, Denies chills, Denies fever, Denies weight gain, Denies weight loss Eyes: denies blurred vision, denies pain Ears, nose, mouth and throat: Denies headache, Denies sore throat Cardiovascular: Denies chest pain, Denies shortness of breath Respiratory: Denies cough Gastrointestinal: Reports as per HPI, Reports abdominal pain, Reports dyspepsia , Reports early satiety, Reports heartburn, Reports loss of appetite, Denies diarrhea, Denies jaundice, Denies nausea, Denies vomiting Musculoskeletal: Denies myalgias Integumentary: Denies pruritus, Denies rash Neurological: Denies numbness, Denies weakness Psychiatric: Denies anxiety, Denies depression Endocrine: Denies fatigue, Denies weight change Past Medical History Past Medical History: No Reported History Additional Past Medical History / Comment(s): Episode of acute pancreatitis requiring admission. History of Any Multi-Drug Resistant Organisms: None Reported Past Surgical History: Tonsillectomy Past Anesthesia/Blood Transfusion Reactions: No Reported Reaction Past Psychological History: No Psychological Hx Reported Smoking Status: Current every day smoker Past Alcohol Use History: Abuse, Daily, Heavy Past Drug Use History: None Reported - Past Family History Father Additional Family Medical History / Comment(s): Father is alive at age 57 with no major medical problems. Mother is alive at age of 56 with no major medical problems. Patient has 1 sister with no known medical problems. Patient does not have any children. Medications and Allergies Home Medications Medication Instructions Recorded Confirmed Type No Known Home Medications [No 12/24/16 12/24/16 History Known Home Medications] Allergies Allergy/AdvReac Type Severity Reaction Status Date / Time No Known Allergies Allergy Verified 12/24/16 09:57 Physical Exam Vitals: Vital Signs Temp Pulse Resp BP Pulse Ox 12/24/16 09:47 97.8 F 108 H 20 113/65 100 Intake and Output 12/23/16 12/24/16 12/24/16 22:59 06:59 14:59 Other: Weight 68.039 kg Patient Weight 12/25/16 06:59 Weight 68.039 kg Constitutional: No acute distress, conversant, pleasant Eyes: Anicteric sclerae, moist conjunctiva, no lid-lag, PERRLA ENMT: NC/AT,Oropharynx clear, no erythema, exudates Neck:Supple, FROM, no masses, or JVD, No carotid bruits; No thyromegaly Lungs: Clear to auscultation, Clear to percussion, Normal respiratory effort, no accessory muscle use Cardiovascular: Heart regular in rate and rhythm, No murmurs, gallops, or rubs no peripheral edema Abdominal: Soft Nontender, nom distended, no guarding, no rebound or rigidity, Normoactive bowel sounds No hepatomegaly, No splenomegaly, No palpable mass No abdominal wall hernia noted Skin: Normal temperature, tone, texture, turgor, No induration No subcutaneous nodules, No rash, lesions, No ulcers Extremities:No digital cyanosis No clubbing, Pedal pulses intact and symmetrical Radial pulses intact and symmetrical Normal gait and station, No calf tenderness Psychiatric: Alert and oriented to person, place and time, Appropriate affect Intact judgement Neuro: Muscles Strength 5/5 in all 4 extremities, Sensation to light touch grossly present throughout, Cranial nerves II-XII grossly intact. No focal sensory deficits Results CBC & Chem 7: 12/24/16 09:55 12/24/16 09:55 Labs: Abnormal Lab Results - Last 24 Hours (Table) 12/24/16 12/24/16 12/24/16 Range/Units 09:55 09:55 10:05 MCHC 37.3 H (31.0-37.0) g/dL Sodium 117 L* (137-145) mmol/L Potassium 3.0 L* (3.5-5.1) mmol/L Chloride 64 L* (98-107) mmol/L Carbon Dioxide 31 H (22-30) mmol/L Glucose 103 H (74-99) mg/dL Total Bilirubin 2.3 H (0.2-1.3) mg/dL AST 98 H (17-59) U/L ALT 111 H (21-72) U/L Albumin 5.4 H (3.5-5.0) g/dL Lipase 461 H (23-300) U/L Urine Protein 1+ H (Negative) Urine Ketones 3+ H (Negative) Hyaline Casts 4 H (0-2) /lpf Urine Mucus Rare H (None) /hpf US - abdomen: report reviewed (Review of patient's ultrasound indicates nonspecific pattern [place] for hepatitis spotty infiltration or diffuse hepatocellular disease, gallbladder sludge but no evidence of wall thickening or biliary traction) Assessment and Plan (1) Alcohol dependence Narrative/Plan: Severe alcohol dependence * Consult case management and social work msw for outpatient resources * Place patient on alcohol withdrawal protocol Status: Acute (2) Alcoholic hepatitis Narrative/Plan: Patient with previously abnormal ultrasound . Hepatitis versus hepatocellular disease We'll order CT abdomen and pelvis with oral and IV contrast and consult GI Dr. Montoya Status: Acute (3) Dehydration Status: Acute (4) Acute pancreatitis Narrative/Plan: Alcohol-induced * Patient nothing by mouth, continue supportive management with morphine and Zofran when necessary Status: Acute (5) Hyponatremia Narrative/Plan: Secondary to dehydration versus bleeding superimposed on underlying beer potomani. Initiate IV fluids NS @ 100 c/hr with 40 meq KCL * Consult nephrology for further recommendation Status: Acute Time with Patient: Greater than 30
[2016-12-24] MEDS: IOHEXOL 350 MG/ML 25 ML BOTTLE (ORAL USE) PO PRN ×2 (15:09→16:04)
[2016-12-24 15:15] LABS: Prothrombin Time 10.1 sec (9.0-12.0)
[2016-12-24] MEDS: 0.9% NACL WITH KCL 40 MEQ/L 1,000 ML IV SCH (16:09)
--- NOTE | 2016-12-24 16:58 | CT ---
EXAMINATION TYPE: CT abdomen pelvis w con DATE OF EXAM: 12/24/2016 COMPARISON: NONE HISTORY: Generalized abdominal pain. CT DLP: 966.00 mGycm Automated exposure control for dose reduction was used. TECHNIQUE: Helical acquisition of images was performed from the lung bases through the pelvis. CONTRAST: Performed with Oral Contrast and with IV Contrast, patient injected with 100 mL of Omnipaque 300. FINDINGS: Lung bases are clear. There is no pleural effusion. Heart size is normal. There is decreased density in the liver consistent with fatty infiltration. Bile ducts are not dilate d. Spleen and pancreas appear normal. Gallbladder appears normal. There is no adrenal mass. Kidneys show satisfactory contrast opacification. There is no hydronephrosi s. There is no retroperitoneal adenopathy. I see no intestinal wall thickening. There are no dilated loops. Bladder distends smoothly. Urinary b ladder is large. Bladder measures 12 cm in length. I see no bony destructive process. Appendix is not definitely seen. There is no sign of appendicitis. IMPRESSION: FATTY INFILTRATION OF THE LIVER. NO DILATED DUCTS. NO SIGN OF ACUTE ABDOMEN AND PELVIS. LARGE URINARY BLADDER.
[2016-12-24] MEDS: THIAMINE 100 MG TAB PO SCH (17:34)
[2016-12-24] MEDS: NICOTINE 21MG/24HR PATCH TRANSDERM SCH (17:34)
--- NOTE | 2016-12-24 23:20 | P.CONS ---
History of Present Illness - Reason for Consult Consult date: 12/24/16 - History of Present Illness The patient is a 56-year-old male with history of alcoholism, consuming half a gallon of vodka daily, presented to the emergency room with the complaints of withdrawal. Apparently he was trying to quit. His last drink was one day prior to admission. He apparently was to get into a rehab program. Patient does admit to increased abdominal pain with nausea vomiting today. States the pain is diffuse throughout the abdomen and crampy in nature. Patient denies any other complaints.Patient denies any recent fever, chills, shortness of breath, chest pain, back pain, numbness or tingling, dysuria or hematuria, constipation or diarrhea, headaches or visual changes, or any other complaints. No hematochezia or melena. The patient is known to our service and he was seen by Dr. Montoya during his recent admission and was scheduled for follow-up 12/04 for further workup for possible liver cirrhosis or other complications but did not keep his appointment because of transportation issues. On presentation to the ER the patient was tremulous and was given Ativan. Workup was consistent with mild pancreatitis with elevated serum lipase of 469. He was also noted to be severely hyponatremic and hypokalemic and dehydrated. We are asked to see him regarding his alcoholic liver disease and pancreatitis. Review of Systems Constitutional: Denies fever, chills, sweats, weight gain, or loss. HEENT: Negative for migraines, blurred vision or loss, earaches, drainage, tinnitus, oral mucosal lesions, dysphagia, or odynophagia. Cardiac: No chest pains or palpitations. Respiratory: Negative for shortness of breath, hemoptysis, cough, or sputum production. Gastrointestinal: See HPI for pertinent findings. Genitourinary: Negative for hematuria, urgency, frequency, polyuria, dysuria, or penile discharge. Musculoskeletal: Negative for muscle aches, swelling, arthritis, and arthralgias. Neurologic: No headaches, double vision the sensor or motor changes was some areas and showing early withdrawal when he presented to the emergency room. Endocrine: Negative for diabetes or thyroid problems. Skin: Negative for rash or itching. Psychiatric: Negative history for depression and anxiety Past Medical History Past Medical History: No Reported History Additional Past Medical History / Comment(s): Episode of acute pancreatitis requiring admission. History of Any Multi-Drug Resistant Organisms: None Reported Past Surgical History: Tonsillectomy Past Anesthesia/Blood Transfusion Reactions: No Reported Reaction Past Psychological History: No Psychological Hx Reported Smoking Status: Current every day smoker Past Alcohol Use History: Abuse, Daily, Heavy Past Drug Use History: None Reported - Past Family History Father Additional Family Medical History / Comment(s): Father is alive at age 57 with no major medical problems. Mother is alive at age of 56 with no major medical problems. Patient has 1 sister with no known medical problems. Patient does not have any children. Mother Family Medical History: No Reported History Additional Family Medical History / Comment(s): Mother is healthy and 56 yrs old. Medications and Allergies Home Medications Medication Instructions Recorded Confirmed Type No Known Home Medications [No 12/24/16 12/24/16 History Known Home Medications] Allergies Allergy/AdvReac Type Severity Reaction Status Date / Time No Known Allergies Allergy Verified 12/24/16 09:57 Physical Exam Vitals: Vital Signs Temp Pulse Pulse Resp BP BP Pulse Ox 12/24/16 15:26 99.5 F 96 17 132/81 97 12/24/16 14:50 98 F 101 H 20 133/73 98 12/24/16 13:39 100.8 F H 106 H 18 128/68 96 12/24/16 09:47 97.8 F 108 H 20 113/65 100 Intake and Output 12/24/16 12/24/16 12/24/16 06:59 14:59 22:59 Other: Weight 68.039 kg Patient Weight 12/25/16 06:59 Weight 68.039 kg General appearance: The patient is alert, oriented, in no acute distress. HET: Head is normocephalic and atraumatic. Pupils are equal and reactive. Sclerae anicteric. Oropharynx is clear without lesions. Neck: Supple without lymphadenopathy. Trachea midline. Heart: No abnormal sounds murmurs or friction rubs. Lungs: Clear to auscultation, no dullness to percussion. Abdomen: Soft, bowel sounds present. No peritoneal signs. No palpable organomegaly or masses. Some shifting dullness. Extremities: Normal skin color and turgor. No cyanosis, rash, ulceration or clubbing. No edema. Radial and pedal pulses are 2/4 bilaterally. Neurological: No focal deficits. Strength and sensation are grossly intact. No flapping tremors. Results CBC & Chem 7: 12/24/16 09:55 12/24/16 21:03 Labs: Abnormal Lab Results - Last 24 Hours (Table) 12/24/16 12/24/16 12/24/16 Range/Units 09:55 09:55 10:05 MCHC 37.3 H (31.0-37.0) g/dL Sodium 117 L* (137-145) mmol/L Potassium 3.0 L* (3.5-5.1) mmol/L Chloride 64 L* (98-107) mmol/L Carbon Dioxide 31 H (22-30) mmol/L Glucose 103 H (74-99) mg/dL Total Bilirubin 2.3 H (0.2-1.3) mg/dL AST 98 H (17-59) U/L ALT 111 H (21-72) U/L Albumin 5.4 H (3.5-5.0) g/dL Lipase 461 H (23-300) U/L Urine Protein 1+ H (Negative) Urine Ketones 3+ H (Negative) Hyaline Casts 4 H (0-2) /lpf Urine Mucus Rare H (None) /hpf Assessment and Plan Plan: 46-year-old male with a clinical picture consistent with acute alcoholic hepatitis, dehydration, electrolyte imbalances and alcohol withdrawal. The patient has stigmata of chronic liver disease likely alcohol related as well. Agree with your current management. Will review his CT and follow closely and watch for infection, bleeding or other complications. Further plans based on his course. Additional workup to rule out additional etiology of liver disease was planned to be performed as outpatient and I believe the patient did not have that blood workup done and will consider pursuing it while he is in the hospital this time.
[2016-12-25] MEDS: LORazepam 2 MG/ML SYRINGE IV PRN ×4 (01:49→16:00)
[2016-12-25] MEDS: 0.9% NACL WITH KCL 40 MEQ/L 1,000 ML IV SCH ×4 (05:02→22:44)
[2016-12-25 08:20] LABS: ALT 98 U/L (21-72); AST 119 U/L (17-59); Alkaline Phosphatase 84 U/L (38-126); Anion Gap 7 mmol/L; Blood Urea Nitrogen 10 mg/dL (9-20); Calcium 8.6 mg/dL (8.4-10.2); Carbon Dioxide 34 mmol/L (22-30); Chloride 83 mmol/L (98-107); Glucose 90 mg/dL (74-99); Non-African American GFR(MDRD) >60 (>60 ml/min/1.73 sqM); Potassium 3.6 mmol/L (3.5-5.1); Sodium 124 mmol/L (137-145); Total Bilirubin 1.6 mg/dL (0.2-1.3)
[2016-12-25] MEDS: NICOTINE 21MG/24HR PATCH TRANSDERM SCH (08:31)
[2016-12-25] MEDS: PANTOPRAZOLE 40 MG/10 ML VIAL IV SCH (08:31)
[2016-12-25 08:56] LABS: Basophils % (A) 1 %; CH 33.4; CHCM 37.3; Eosinophils % (A) 1 %; HCT 35.9 % (39.0-53.0); HDW 2.69; Luc # (Auto) 0.07; Luc % (Auto) 1; Lymphocytes # (A) 1.7 k/uL (1.0-4.8); Lymphocytes % (A) 33 %; MCH 32.4 pg (25.0-35.0); MCHC 36.2 g/dL (31.0-37.0); MCV 89.7 fL (80.0-100.0); Monocytes # (A) 0.4 k/uL (0-1.0); Monocytes % (A) 7 %; Neutrophils # (A) 2.9 k/uL (1.3-7.7); Neutrophils % (A) 57 %; WBC (Perox) 5.35
--- NOTE | 2016-12-25 10:19 | P.PN ---
Subjective Principal diagnosis: 36-year-old male with severe alcohol dependence, alcohol withdrawal, alcoholic liver disease presented with dehydration and electrolyte abnormalities with hyponatremia and hypokalemia in the setting of acute pancreatitis. For his weakness will consult PTOT Patient's diet was advanced by GI, he is up eating, denies any nauseo or vomiting. No acute events overnight, appears very weak. Affect appears flat Reports difficulty with ambulation Objective - Vital Signs Vital signs: Vital Signs Temp 97.4 F L 12/25/16 07:00 Pulse 116 H 12/25/16 07:00 Resp 14 12/25/16 07:00 BP 130/85 12/25/16 07:00 Pulse Ox 97 12/25/16 07:00 Intake & Output 12/24/16 12/25/16 12/25/16 18:59 06:59 18:59 Intake Total 1390 Output Total 300 Balance 1090 Weight 68.039 kg Intake: IV 800 0.9% NaCl with KCl 40 Meq 800 /l 1,000 ml @ 100 mls/hr IV .Q10H JIGNESH Rx#: [id number] Oral 590 Output: Urine 300 - Exam Constitutional: No acute distress, conversant, pleasant Eyes: Anicteric sclerae, moist conjunctiva, no lid-lag, PERRLA ENMT: NC/AT,Oropharynx clear, no erythema, exudates Neck:Supple, FROM, no masses, or JVD, No carotid bruits; No thyromegaly Lungs: Clear to auscultation, Clear to percussion, Normal respiratory effort, no accessory muscle use Cardiovascular: Heart regular in rate and rhythm, No murmurs, gallops, or rubs no peripheral edema Abdominal: Soft Nontender, nom distended, no guarding, no rebound or rigidity, Normoactive bowel sounds No hepatomegaly, No splenomegaly, No palpable mass No abdominal wall hernia noted Skin: Normal temperature, tone, texture, turgor, No induration No subcutaneous nodules, No rash, lesions, No ulcers Extremities:No digital cyanosis No clubbing, Pedal pulses intact and symmetrical Radial pulses intact and symmetrical Normal gait and station, No calf tenderness Psychiatric: Alert and oriented to person, place and time, flat affect with reduced psychomotor Neuro: Muscles Strength 5/5 in all 4 extremities, Sensation to light touch grossly present throughout, Cranial nerves II-XII grossly intact. No focal sensory deficits - Labs CBC & Chem 7: 12/25/16 07:40 12/25/16 07:40 Labs: Abnormal Lab Results - Last 24 Hours (Table) 12/24/16 12/24/16 12/24/16 Range/Units 04:45 09:55 09:55 RBC (4.30-5.90) m/uL Hct (39.0-53.0) % MCHC 37.3 H (31.0-37.0) g/dL Sodium 117 L* (137-145) mmol/L Potassium 3.0 L* (3.5-5.1) mmol/L Chloride 64 L* (98-107) mmol/L Carbon Dioxide 31 H (22-30) mmol/L Glucose 103 H (74-99) mg/dL Total Bilirubin 2.3 H (0.2-1.3) mg/dL AST 98 H (17-59) U/L ALT 111 H (21-72) U/L Total Protein (6.3-8.2) g/dL Albumin 5.4 H (3.5-5.0) g/dL Lipase 461 H (23-300) U/L Urine Protein (Negative) Urine Ketones (Negative) Hyaline Casts (0-2) /lpf Urine Mucus (None) /hpf Ur Random Sodium 24 L (30-90) mmol/L 12/24/16 12/24/16 12/25/16 Range/Units 10:05 21:03 07:40 RBC 4.00 L (4.30-5.90) m/uL Hct 35.9 L (39.0-53.0) % MCHC (31.0-37.0) g/dL Sodium 118 L* (137-145) mmol/L Potassium (3.5-5.1) mmol/L Chloride (98-107) mmol/L Carbon Dioxide (22-30) mmol/L Glucose (74-99) mg/dL Total Bilirubin (0.2-1.3) mg/dL AST (17-59) U/L ALT (21-72) U/L Total Protein (6.3-8.2) g/dL Albumin (3.5-5.0) g/dL Lipase (23-300) U/L Urine Protein 1+ H (Negative) Urine Ketones 3+ H (Negative) Hyaline Casts 4 H (0-2) /lpf Urine Mucus Rare H (None) /hpf Ur Random Sodium (30-90) mmol/L 12/25/16 Range/Units 07:40 RBC (4.30-5.90) m/uL Hct (39.0-53.0) % MCHC (31.0-37.0) g/dL Sodium 124 L (137-145) mmol/L Potassium (3.5-5.1) mmol/L Chloride 83 L (98-107) mmol/L Carbon Dioxide 34 H (22-30) mmol/L Glucose (74-99) mg/dL Total Bilirubin 1.6 H (0.2-1.3) mg/dL AST 119 H (17-59) U/L ALT 98 H (21-72) U/L Total Protein 6.0 L (6.3-8.2) g/dL Albumin (3.5-5.0) g/dL Lipase 1724 H (23-300) U/L Urine Protein (Negative) Urine Ketones (Negative) Hyaline Casts (0-2) /lpf Urine Mucus (None) /hpf Ur Random Sodium (30-90) mmol/L - Imaging and Cardiology CT scan - abdomen: report reviewed (Fatty infiltration of the liver no dilated ducts,no sign ofacute abdomen and pelvis) Assessment and Plan (1) Alcohol dependence Narrative/Plan: Severe alcohol dependence * Consult case management and long term care social worker for outpatient resources * Place patient on alcohol withdrawal protocol Status: Acute (2) Alcoholic hepatitis Narrative/Plan: Patient with previously abnormal ultrasound . CT abdomen and this indicated fatty liver related to his alcohol use. Appreciated GIs recommendation Status: Acute (3) Dehydration Status: Acute (4) Acute pancreatitis Narrative/Plan: Alcohol-induced * Diet advanced by GI, continue supportive management with morphine and Zofran when necessary * Lipase is trending up to 1724 Status: Acute (5) Hyponatremia Narrative/Plan: Secondary to dehydration versus bleeding superimposed on underlying beer potomana * Sodium trending up to 124 good rate of correction continue fluids Status: Acute (6) Bipolar 1 disorder, depressed, severe Narrative/Plan: Consult psychiatry for further recommendations Status: Acute Time with Patient: Greater than 30
[2016-12-25 10:43] VITALS: BMI 22.1
--- NOTE | 2016-12-25 11:38 | P.PN ---
Subjective Principal diagnosis: alcohol hepatitis pancreatitis 36-year-old male admitted with acute alcohol hepatitis intoxication with elevated pancreatic enzymes this morning consistent with alcohol induced pancreatitis. Reports mild midepigastric discomfort nothing severe. Requesting diet. Afebrile. LFTs stable. Objective - Vital Signs Vital signs: Vital Signs Temp 97.4 F L 12/25/16 07:00 Pulse 116 H 12/25/16 09:00 Resp 14 12/25/16 07:00 BP 130/85 12/25/16 07:00 Pulse Ox 97 12/25/16 07:00 Intake & Output 12/24/16 12/25/16 12/25/16 18:59 06:59 18:59 Intake Total 1390 240 Output Total 300 Balance 1090 240 Weight 68.039 kg 68.039 kg Intake: IV 800 0.9% NaCl with KCl 40 Meq 800 /l 1,000 ml @ 100 mls/hr IV .Q10H JIGNESH Rx#: [id number] Oral 590 240 Output: Urine 300 Other: Voiding Method Toilet Urinal - Exam General appearance: The patient is alert, oriented, in no acute distress. HET: Head is normocephalic and atraumatic. Pupils are equal and reactive. Oropharynx is clear without lesions. Neck: Supple without lymphadenopathy. Trachea midline. Heart: S1 S2. Regular rate and rhythm. Lungs: No crackles or wheezes are heard. Abdomen: Soft, mild midepigastric tenderness, nondistended with bowel sounds. No peritoneal signs. No palpable organomegaly or masses. Extremities: Normal skin color and turgor. No cyanosis, rash, ulceration, clubbing, or edema. Radial and pedal pulses are 2/4 bilaterally. Neurological: No focal deficits. Strength and sensation are grossly intact. - Labs CBC & Chem 7: 12/25/16 07:40 12/25/16 07:40 Labs: Abnormal Lab Results - Last 24 Hours (Table) 12/24/16 12/24/16 12/25/16 Range/Units 04:45 21:03 07:40 RBC 4.00 L (4.30-5.90) m/uL Hct 35.9 L (39.0-53.0) % Sodium 118 L* (137-145) mmol/L Chloride (98-107) mmol/L Carbon Dioxide (22-30) mmol/L Total Bilirubin (0.2-1.3) mg/dL AST (17-59) U/L ALT (21-72) U/L Total Protein (6.3-8.2) g/dL Lipase (23-300) U/L Ur Random Sodium 24 L (30-90) mmol/L 12/25/16 Range/Units 07:40 RBC (4.30-5.90) m/uL Hct (39.0-53.0) % Sodium 124 L (137-145) mmol/L Chloride 83 L (98-107) mmol/L Carbon Dioxide 34 H (22-30) mmol/L Total Bilirubin 1.6 H (0.2-1.3) mg/dL AST 119 H (17-59) U/L ALT 98 H (21-72) U/L Total Protein 6.0 L (6.3-8.2) g/dL Lipase 1724 H (23-300) U/L Ur Random Sodium (30-90) mmol/L Assessment and Plan (1) Acute pancreatitis Status: Acute (2) Alcohol dependence Status: Acute (3) Alcoholic hepatitis Status: Acute Plan: Decrease diet to clear liquids. Repeat pancreatic liver enzymes in a.m. Supportive measures. Alcohol abstinence reinforced. Assessment and plan a care discussed with Dr. Foster
[2016-12-25] MEDS: THIAMINE 100 MG TAB PO SCH ×2 (11:58→16:04)
--- NOTE | 2016-12-25 15:41 | P.NPCON ---
History of Present Illness - Reason for Consult hyponatremia - History of Present Illness Reason for consultation: Hyponatremia History of present illness: Patient is a 36-year-old male seen in renal consultation for hyponatremia. His sodium level was 117 on admission and is up to 124 this morning. Patient presented due to symptoms of alcohol withdrawal. Patient states he was having nausea and vomiting and was also hallucinating. Patient states he last drank alcohol Friday afternoon and admits to drinking about half a gallon of liquor daily. Serum alcohol level was 33 on admission. He denies any chest pain or shortness of breath. Denies diarrhea. States his oral intake has been poor the last few days. He is also noted to have acute pancreatitis. His lipase level elevated at 1724 this morning. Denies any history of renal disease. GFR is at baseline with creatinine is 0.66. Denies drinking excess amounts of water. I don't see any diuretics and his home medications. Hemodynamically stable. Vital signs are stable. General: The patient appeared well nourished and normally developed. HEENT: Head exam is unremarkable. Neck is without jugular venous distension. LUNGS: Lungs are clear to auscultation and percussion. Breath sounds decreased. HEART: Rate and Rhythm are regular. First and second heart sounds normal. No murmurs, rubs or gallops. ABDOMEN: Abdominal exam reveals normal bowel sounds. Non-tender and non- distended. No evidence of peritonitis. EXTREMITITES: No clubbing, cyanosis, or edema. Past Medical History Past Medical History: No Reported History Additional Past Medical History / Comment(s): Episode of acute pancreatitis requiring admission. History of Any Multi-Drug Resistant Organisms: None Reported Past Surgical History: Tonsillectomy Past Anesthesia/Blood Transfusion Reactions: No Reported Reaction Past Psychological History: No Psychological Hx Reported Smoking Status: Current every day smoker Past Alcohol Use History: Abuse, Daily, Heavy Past Drug Use History: None Reported - Past Family History Father Additional Family Medical History / Comment(s): Father is alive at age 57 with no major medical problems. Mother is alive at age of 56 with no major medical problems. Patient has 1 sister with no known medical problems. Patient does not have any children. Mother Family Medical History: No Reported History Additional Family Medical History / Comment(s): Mother is healthy and 56 yrs old. Medications and Allergies Home Medications Medication Instructions Recorded Confirmed Type No Known Home Medications [No 12/24/16 12/24/16 History Known Home Medications] Allergies Allergy/AdvReac Type Severity Reaction Status Date / Time No Known Allergies Allergy Verified 12/24/16 09:57 Physical Exam Vitals: Vital Signs Temp Pulse Resp BP Pulse Ox 12/25/16 09:00 116 H 12/25/16 07:00 97.4 F L 116 H 14 130/85 97 12/24/16 22:30 97.0 F L 105 H 16 141/69 97 Intake and Output 12/25/16 12/25/16 12/25/16 06:59 14:59 22:59 Intake Total 800 480 Output Total 700 Balance 800 -220 Intake: IV 800 0.9% NaCl with KCl 40 Meq 800 /l 1,000 ml @ 100 mls/hr IV .Q10H [facility] Rx#: [id number] Oral 480 Output: Urine 700 Other: Voiding Method Toilet Urinal Weight 68.039 kg Patient Weight 12/26/16 06:59 Weight 68.039 kg Results - Lab Results Most recent lab results Calcium 8.6 mg/dL (8.4-10.2) 12/25/16 07:40 Magnesium 2.0 mg/dL (1.6-2.3) 12/24/16 09:55 12/25/16 07:40 12/25/16 07:40 Assessment and Plan Plan: Assessment: #1. Hyponatremia secondary to beer Terri felecia. His urine sodium was on the lower side at 24 along with a relatively low urine osmolality at 224. Sodium level improving with IV hydration and is up to 124 this morning. #2. Alcohol abuse. #3. Hypokalemia due to poor nutritional status. status post replacement. Improved. Magnesium replete. #4. Acute pancreatitis. Plan: Continue with normal saline at 100 mL an hour. Check sodium level at 5 PM today. GI following. Diet to be advanced today. Avoid rapid correction of hyponatremia. Thank you for the consultation. I will continue to follow the patient with you during his hospital stay.
--- NOTE | 2016-12-25 17:58 | P.CN ---
Psychiatric Consult - . Consult date: 12/25/16 Consult:: Patient's RN was was questioned prior to attempt to interview patient. Per RN, patient is withdrawing from alcohol but has not exhibited any violent or threatening behaviors. She does note that he will engage in childish acts that are bizarre in nature but generally brief. Patient approached at bedside. Upon introduction, patient states that he does not want to see a psychiatrist. Several attempts were made, patient declined. He did admit to a remote diagnosis of bipolar disorder although he hasn't taken medication in many years , denies any past history of suicidal ideation or attempts. He denies any past psychiatric hospitalizations. He is uncertain when he last saw a psychiatrist. He denies any history of self harm, desire to harm others, AVH. When asked about if I could ask a few brief questions about his alcohol withdrawal patient rolled over on his side, terminating the interview. As patient is in the hospital for medical treatment and there is no documentation of patient wanting to harm himself or others, based upon this interview and discussion with patient's RN, patient may decline psychiatric evaluation. Should this change please to re-consult. Assessment and Plan (1) History of bipolar disorder Status: Acute Plan: Patient declined psychiatric consultation. At present, there is no documentation of patient expressing SI/HI and patient denies such. Miki Art DO [phone] (pager)
[2016-12-26] MEDS: LORazepam 2 MG/ML SYRINGE IV PRN (00:05)
[2016-12-26] MEDS: 0.9% NACL WITH KCL 40 MEQ/L 1,000 ML IV SCH ×2 (04:22→20:06)
[2016-12-26 08:13] LABS: Anion Gap 6 mmol/L; Blood Urea Nitrogen 2 mg/dL (9-20); Calcium 8.4 mg/dL (8.4-10.2); Carbon Dioxide 27 mmol/L (22-30); Chloride 98 mmol/L (98-107); Glucose 138 mg/dL (74-99); Magnesium 1.7 mg/dL (1.6-2.3); Non-African American GFR(MDRD) >60 (>60 ml/min/1.73 sqM); Potassium 4.2 mmol/L (3.5-5.1); Sodium 131 mmol/L (137-145)
[2016-12-26] MEDS: NICOTINE 21MG/24HR PATCH TRANSDERM SCH (09:53)
[2016-12-26] MEDS: PANTOPRAZOLE 40 MG/10 ML VIAL IV SCH (09:53)
--- NOTE | 2016-12-26 09:56 | P.PN ---
Subjective Principal diagnosis: alcohol hepatitis pancreatitis 36-year-old male admitted with acute alcohol hepatitis intoxication with elevated pancreatic enzymes yesterday morning consistent with alcohol induced pancreatitis. Reports very mild midepigastric discomfort nothing severe. Requesting diet advancement; tolerating clear liquids. Afebrile. Morning chemistries pending. Objective - Vital Signs Vital signs: Vital Signs Temp 98.1 F 12/26/16 06:50 Pulse 109 H 12/26/16 06:50 Resp 16 12/26/16 06:50 BP 135/92 12/26/16 06:50 Pulse Ox 99 12/26/16 06:50 Intake & Output 12/25/16 12/26/16 12/26/16 18:59 06:59 18:59 Intake Total 480 1125 1150 Output Total 700 1300 650 Balance -220 -175 500 Weight 68.039 kg Intake: IV 675 0.9% NaCl with KCl 40 Meq 675 /l 1,000 ml @ 75 mls/hr IV .[id number] [facility] Rx#: [id number] Oral [id number] Output: Urine 700 1300 650 Other: Voiding Method Toilet Toilet Urinal Urinal # Voids 2 - Exam General appearance: The patient is alert, oriented, in no acute distress. HET: Head is normocephalic and atraumatic. Pupils are equal and reactive. Oropharynx is clear without lesions. Neck: Supple without lymphadenopathy. Trachea midline. Heart: S1 S2. Regular rate and rhythm. Lungs: No crackles or wheezes are heard. Abdomen: Soft, mild midepigastric tenderness, nondistended with bowel sounds. No peritoneal signs. No palpable organomegaly or masses. Extremities: Normal skin color and turgor. No cyanosis, rash, ulceration, clubbing, or edema. Radial and pedal pulses are 2/4 bilaterally. Neurological: No focal deficits. Strength and sensation are grossly intact. - Labs CBC & Chem 7: 12/25/16 07:40 12/26/16 07:32 Labs: Abnormal Lab Results - Last 24 Hours (Table) 12/25/16 12/26/16 Range/Units 17:20 07:32 Sodium 126 L 131 L (137-145) mmol/L BUN 2 L (9-20) mg/dL Creatinine 0.59 L (0.66-1.25) mg/dL Glucose 138 H (74-99) mg/dL Assessment and Plan (1) Acute pancreatitis Status: Acute (2) Alcohol dependence Status: Acute (3) Alcoholic hepatitis Status: Acute Plan: 1. Advance diet if chemistries improved. Supportive measures. Assessment and plan a care discussed with Dr. Foster
--- NOTE | 2016-12-26 10:56 | P.PN ---
Subjective Principal diagnosis: 36-year-old male with severe alcohol dependence, alcohol withdrawal, alcoholic liver disease presented with dehydration and electrolyte abnormalities with hyponatremia and hypokalemia in the setting of acute pancreatitis. For his weakness will consult PTOT She wanting to eat currently on clear liquids Discussed at length today the patient's poor decisions and noncompliance with multidisciplinary approach to managing his chronic severe alcoholism., Patient has recently refused case management and social work recommendations to go seek treatment at AA meetings, refused to work with PT yesterday, and refused his interested to speak and psych. Discussed with Patient that had very poor insight that he needs help quit drinking, reluctance the patient has agreed to with physical therapy, case management and will speak with psych today Objective - Vital Signs Vital signs: Vital Signs Temp 98.1 F 12/26/16 06:50 Pulse 109 H 12/26/16 06:50 Resp 16 12/26/16 06:50 BP 135/92 12/26/16 06:50 Pulse Ox 99 12/26/16 06:50 Intake & Output 12/25/16 12/26/16 12/26/16 18:59 06:59 18:59 Intake Total 480 1125 2167 Output Total 700 1300 1875 Balance -220 -175 292 Weight 68.039 kg Intake: IV 675 0.9% NaCl with KCl 40 Meq 675 /l 1,000 ml @ 75 mls/hr IV .[id number] [facility] Rx#: [id number] Oral [id number] Output: Urine 700 1300 1875 Other: Voiding Method Toilet Toilet Urinal Urinal # Voids 2 2 - Exam Constitutional: No acute distress, conversant, pleasant Eyes: Anicteric sclerae, moist conjunctiva, no lid-lag, PERRLA ENMT: NC/AT,Oropharynx clear, no erythema, exudates Neck:Supple, FROM, no masses, or JVD, No carotid bruits; No thyromegaly Lungs: Clear to auscultation, Clear to percussion, Normal respiratory effort, no accessory muscle use Cardiovascular: Heart regular in rate and rhythm, No murmurs, gallops, or rubs no peripheral edema Abdominal: Soft Nontender, nom distended, no guarding, no rebound or rigidity, Normoactive bowel sounds No hepatomegaly, No splenomegaly, No palpable mass No abdominal wall hernia noted Skin: Normal temperature, tone, texture, turgor, No induration No subcutaneous nodules, No rash, lesions, No ulcers Extremities:No digital cyanosis No clubbing, Pedal pulses intact and symmetrical Radial pulses intact and symmetrical Normal gait and station, No calf tenderness Psychiatric: Alert and oriented to person, place and time, flat affect with reduced psychomotor Neuro: Muscles Strength 5/5 in all 4 extremities, Sensation to light touch grossly present throughout, Cranial nerves II-XII grossly intact. No focal sensory deficits - Labs CBC & Chem 7: 12/25/16 07:40 12/26/16 07:32 Labs: Abnormal Lab Results - Last 24 Hours (Table) 12/25/16 12/26/16 Range/Units 17:20 07:32 Sodium 126 L 131 L (137-145) mmol/L BUN 2 L (9-20) mg/dL Creatinine 0.59 L (0.66-1.25) mg/dL Glucose 138 H (74-99) mg/dL Assessment and Plan (1) Alcohol dependence Status: Acute (2) Alcoholic hepatitis Narrative/Plan: Patient with previously abnormal ultrasound . CT abdomen and this indicated fatty liver related to his alcohol use. Appreciated GIs recommendation Status: Acute (3) Dehydration Status: Acute (4) Acute pancreatitis Narrative/Plan: Alcohol-induced * Clear liquids continue supportive management with morphine and Zofran when necessary * Lipase is trending up to 1724 yesterday repeat pending Status: Acute (5) Hyponatremia Narrative/Plan: Secondary to dehydration versus bleeding superimposed on underlying beer potomana * Sodium trending up to 131 good rate of correction continue fluids Status: Acute (6) Bipolar 1 disorder, depressed, severe Narrative/Plan: Consult psychiatry for further recommendations * Appreciate Dr. Carrillo coming by however patient was pretty disinterested in to psychiatry. * Status: Acute
--- NOTE | 2016-12-26 11:10 | P.PN ---
Subjective Patient is seen in follow-up for hyponatremia. Patient presented with alcohol withdrawals. He was drinking half a gallon of liquor daily. Currently he is resting in bed. He still on a clear liquid diet due to acute pancreatitis. Sodium level has gradually improved and is up to 131 this morning. He is maintained on isotonic fluids running at 75 mL an hour. Denies abdominal pain. Vital signs are stable. General: The patient appeared well nourished and normally developed. HEENT: Head exam is unremarkable. Neck is without jugular venous distension. LUNGS: Lungs are clear to auscultation and percussion. Breath sounds decreased. HEART: Rate and Rhythm are regular. First and second heart sounds normal. No murmurs, rubs or gallops. ABDOMEN: Abdominal exam reveals normal bowel sounds. Non-tender and non- distended. No evidence of peritonitis. EXTREMITITES: No clubbing, cyanosis, or edema. Objective - Vital Signs Vital signs: Vital Signs Temp 98.1 F 12/26/16 06:50 Pulse 109 H 12/26/16 06:50 Resp 16 12/26/16 06:50 BP 135/92 12/26/16 06:50 Pulse Ox 99 12/26/16 06:50 Intake & Output 12/25/16 12/26/16 12/26/16 18:59 06:59 18:59 Intake Total 480 1125 2167 Output Total 700 1300 1875 Balance -220 -175 292 Weight 68.039 kg Intake: IV 675 0.9% NaCl with KCl 40 Meq 675 /l 1,000 ml @ 75 mls/hr IV .[id number] [facility] Rx#: [id number] Oral [id number] Output: Urine 700 1300 1875 Other: Voiding Method Toilet Toilet Urinal Urinal # Voids 2 2 - Labs CBC & Chem 7: 12/25/16 07:40 12/26/16 07:32 Labs: Abnormal Lab Results - Last 24 Hours (Table) 12/25/16 12/26/16 12/26/16 Range/Units 17:20 07:32 07:32 Sodium 126 L 131 L (137-145) mmol/L BUN 2 L (9-20) mg/dL Creatinine 0.59 L (0.66-1.25) mg/dL Glucose 138 H (74-99) mg/dL Lipase 566 H (23-300) U/L Assessment and Plan Plan: Assessment: #1. Hyponatremia secondary to beer potomania. His urine sodium was on the lower side at 24 along with a relatively low urine osmolality at 224. Sodium level improving with IV hydration and is up to 131 this morning. #2. Alcohol abuse. #3. Hypokalemia due to poor nutritional status. status post replacement. Improved. Magnesium replete. #4. Acute pancreatitis. Plan: Continue with normal saline at 75 mL an hour. GI following. Diet to be advanced hopefully today. Repeat electrolytes in the morning. Sodium level has corrected at an appropriate pace.
[2016-12-26] MEDS: THIAMINE 100 MG TAB PO SCH ×2 (13:04→17:20)
[2016-12-26] MEDS ORDERED: traZODone HCL 50 MG TAB PO ONE (21:00)
--- NOTE | 2016-12-26 23:46 | P.CN ---
Psychiatric Consult - . Consult date: 12/26/16 Consult:: HPI: Patient is a 36 year old year old male with a remote history of bipolar disorder currently hospitalized for hyponatremia, hypokalemia, pancreatitis, and alcohol withdrawal due to severe alcohol dependence. Patient reports until recently he has been drinking approximately 1.5-1 gallon of Vodka per day and was unable to eat for several days prior to admission. Patient reports that he has struggled with substance abuse his entire life. He reports initially using drugs such as cannabis, cocaine, LSD, etc. and later substituted all of them with alcohol. He reports he "lost control" of his drinking around age 26 and has been through 5 inpatient rehabs, various OP programs and overall did the best with AA. Patient's only past psychiatric history is a remote diagnosis of bipolar disorder in adolescence. Patient states has not taken any medication in over 15 years and and denies any significant depressive or manic symptoms. At this time, patient denies SI/HI/AVH. PSYCHIATRIC HISTORY: number of hospitlizations: 1 number of suicide attempts: 0 most severe attempt: 0 -last attempt: 0 PMH: Episode of acute pancreatitis requiring admission. Smoking Status: current every day smoker Past Alcohol Use History: drinks daily ALLERGIES: NKDA Allergies Allergy/AdvReac Type Severity Reaction Status Date / Time No Known Allergies Allergy Verified 12/24/16 09:57 HOME MEDICATIONS: None SURGICAL HISTORY: Tonsillectomy CHEMICAL DEPENDENCY HISTORY: Alcohol, (remote history of cocaine, methamphetamine, LSD, and heroin 7-10+ years ago) FAMILY HISTORY: Father is alive at age 57 with no major medical problems. Mother is alive at age of 56 with no major medical problems. Patient has 1 sister with no known medical problems. Patient does not have any children. MENTAL STATUS EXAM: Appearance: alert, well groomed, appears stated age, steady gait Behavior: no psychomotor agitation or psychomotor retardation, fair eye contact Attitude: cooperative Speech: normal rate, rhythm, fluency, articulation; and prosody Mood: mildly dysphoric due to being in the hospital Affect: bright, full range Thought processes: linear, organized Thought content: patient does not appear to be responding to internal stimuli; patient denies auditory and visual hallucinations, no delusions and is not exhibiting in overt signs of psychosis, denies SI/HI Insight: fair Judgment: poor Cognitive: oriented to all 4 spheres, normal intelligence STRENGTHS/WEAKNESSES: supportive family, poor coping skills VITALS: Temp 99.1 F 12/26/16 15:00 Pulse 118 H 12/26/16 19:43 Resp 20 12/26/16 19:43 BP 144/71 12/26/16 19:43 Pulse Ox 100 12/26/16 19:43 LABS: WBC 5.0 k/uL (3.8-10.6) 12/25/16 07:40 RBC 4.00 m/uL (4.30-5.90) L 12/25/16 07:40 Hgb 13.0 gm/dL (13.0-17.5) 12/25/16 07:40 Hct 35.9 % (39.0-53.0) L 12/25/16 07:40 MCV 89.7 fL (80.0-100.0) 12/25/16 07:40 MCH 32.4 pg (25.0-35.0) 12/25/16 07:40 MCHC 36.2 g/dL (31.0-37.0) 12/25/16 07:40 RDW 13.0 % (11.5-15.5) 12/25/16 07:40 Plt Count 171 k/uL (150-450) 12/25/16 07:40 Neutrophils % 57 % 12/25/16 07:40 Lymphocytes % 33 % 12/25/16 07:40 Monocytes % 7 % 12/25/16 07:40 Eosinophils % 1 % 12/25/16 07:40 Basophils % 1 % 12/25/16 07:40 Neutrophils # 2.9 k/uL (1.3-7.7) 12/25/16 07:40 Lymphocytes # 1.7 k/uL (1.0-4.8) 12/25/16 07:40 Monocytes # 0.4 k/uL (0-1.0) 12/25/16 07:40 Eosinophils # 0.0 k/uL (0-0.7) 12/25/16 07:40 Basophils # 0.0 k/uL (0-0.2) 12/25/16 07:40 Manual Slide Review Performed 12/24/16 09:55 Hyperchromasia Marked 12/24/16 09:55 Anisocytosis (manual) Present 12/24/16 09:55 PT 10.1 sec (9.0-12.0) 12/24/16 09:55 INR 1.0 (<1.2) 12/24/16 09:55 Sodium 131 mmol/L (137-145) L 12/26/16 07:32 Potassium 4.2 mmol/L (3.5-5.1) 12/26/16 07:32 Chloride 98 mmol/L (98-107) 12/26/16 07:32 Carbon Dioxide 27 mmol/L (22-30) 12/26/16 07:32 Anion Gap 6 mmol/L 12/26/16 07:32 BUN 2 mg/dL (9-20) L 12/26/16 07:32 Creatinine 0.59 mg/dL (0.66-1.25) L 12/26/16 07:32 Est GFR (MDRD) Af Amer >60 (>60 ml/min/1.73 sqM) 12/26/16 07:32 Est GFR (MDRD) Non-Af >60 (>60 ml/min/1.73 sqM) 12/26/16 07:32 Glucose 138 mg/dL (74-99) H 12/26/16 07:32 Calcium 8.4 mg/dL (8.4-10.2) 12/26/16 07:32 Magnesium 1.7 mg/dL (1.6-2.3) 12/26/16 07:32 Total Bilirubin 1.6 mg/dL (0.2-1.3) H 12/25/16 07:40 AST 119 U/L (17-59) H 12/25/16 07:40 ALT 98 U/L (21-72) H 12/25/16 07:40 Alkaline Phosphatase 84 U/L (38-126) 12/25/16 07:40 Total Protein 6.0 g/dL (6.3-8.2) L 12/25/16 07:40 Albumin 4.0 g/dL (3.5-5.0) 12/25/16 07:40 Amylase 65 U/L (30-110) 12/24/16 09:55 Lipase 566 U/L (23-300) H 12/26/16 07:32 Urine Color Yellow 12/24/16 10:05 Urine Appearance Clear (Clear) 12/24/16 10:05 Urine pH 8.0 (5.0-8.0) 12/24/16 10:05 Ur Specific Dawes 1.015 (1.001-1.035) 12/24/16 10:05 Urine Protein 1+ (Negative) H 12/24/16 10:05 Urine Glucose (UA) Negative (Negative) 12/24/16 10:05 Urine Ketones 3+ (Negative) H 12/24/16 10:05 Urine Blood Negative (Negative) 12/24/16 10:05 Urine Nitrite Negative (Negative) 12/24/16 10:05 Urine Bilirubin Negative (Negative) 12/24/16 10:05 Urine Urobilinogen 8.0 mg/dL (<2.0) 12/24/16 10:05 Ur Leukocyte Esterase Negative (Negative) 12/24/16 10:05 Urine RBC <1 /hpf (0-5) 12/24/16 10:05 Urine WBC 5 /hpf (0-5) 12/24/16 10:05 Ur Squamous Epith Cells <1 /hpf (0-4) 12/24/16 10:05 Hyaline Casts 4 /lpf (0-2) H 12/24/16 10:05 Urine Mucus Rare /hpf (None) H 12/24/16 10:05 Urine Osmolality 224 mosm/kg (50-1400) 12/24/16 04:45 Ur Random Sodium 24 mmol/L (30-90) L 12/24/16 04:45 Serum Alcohol 33 mg/dL 12/24/16 09:55 Assessment and Plan (1) History of bipolar disorder Status: Acute (2) Alcohol use disorder, severe, dependence Status: Acute Plan: 1. There is no psychiatric contraindication for discharge 2. Patient would benefit from either inpatient or outpatient substance abuse rehabilitation; after a discussion of the pros/cons of each, he states he will follow up OP with Alcoholics Anonymous and reports already having a sponsor whom he can still contact 3. Patient would benefit from outpatient follow up with addiction medicine, he an ideal candidate for trial Vivitrol. 4. No indication for psychotropic medication at this time 5. Patient educated about the risks of binge drinking 6. Patient encouraged to be proactive in his recovery ~ Miki Art DO
[2016-12-27] MEDS: 0.9% NACL WITH KCL 40 MEQ/L 1,000 ML IV SCH (04:52)
[2016-12-27 07:15] VITALS: BP 129/93; PULSE 114; RESP 16; TEMP 98.5
[2016-12-27] MEDS ORDERED: PANTOPRAZOLE 40 MG TABLET PO SCH (07:30)
[2016-12-27 08:07] LABS: Anion Gap 8 mmol/L; Blood Urea Nitrogen 5 mg/dL (9-20); Calcium 8.8 mg/dL (8.4-10.2); Carbon Dioxide 25 mmol/L (22-30); Chloride 101 mmol/L (98-107); Glucose 118 mg/dL (74-99); Non-African American GFR(MDRD) >60 (>60 ml/min/1.73 sqM); Potassium 5.2 mmol/L (3.5-5.1); Sodium 134 mmol/L (137-145)
[2016-12-27] MEDS: NICOTINE 21MG/24HR PATCH TRANSDERM SCH (08:49)
--- NOTE | 2016-12-27 10:36 | P.DS ---
Providers Date of admission: 12/24/16 11:30 Expected date of discharge: 12/27/16 Attending physician: Bouchra Arroyo, Consults: 12/24/16 11:32 Consult Physician Routine Consulting Provider: Lupe Bauer Consult Reason/Comments: hyponatremia Do you want consulting provider notified?: Yes 12/25/16 09:41 Consult Physician Routine Consulting Provider: Miki Art Consult Reason/Comments: Bipolar disorder Do you want consulting provider notified?: Yes Primary care physician: Josiah Nichols - Discharge Diagnosis(es) (1) Alcohol dependence Current Visit: Yes Status: Acute (2) Alcoholic hepatitis Current Visit: No Status: Acute (3) Dehydration Current Visit: No Status: Acute (4) Acute pancreatitis Current Visit: Yes Status: Acute (5) Hyponatremia Current Visit: Yes Status: Acute (6) Bipolar 1 disorder, depressed, severe Current Visit: Yes Status: Acute Hospital Course: The patient is a 36-year-old male with a history of severe alcoholism the presented with malaise and otherwise weakness secondary to severe symptomatic hyponatremia hypokalemia with dehydration acute pancreatitis. The patient was started on IV fluids made nothing by mouth treated with morphine and Zofran for pain and nausea respectively, nephrology psychology and GI were consulted. ET abdomen and pelvis was ordered was consistent with a fatty liver and his liver studies were consistent with alcoholic liver disease. His hyponatremia due to be reported to beer potomania gradually resolved after presenting at 118, with IV fluids it corrected over 5 days, his other electrolytes were also replaced. The patient's pancreatitis gradually resolved and his diet was advanced. He was seen by PT for his weakness. Psychiatry Dr. Art saw the patient and recommended that the patient have inpatient therapy for this alcohol abuse the patient declined and elected to proceed outpatient with attending AA meetings (which has been unsuccessful with in the past). Dr. Art also recommended a Vivitrol for alcohol dependence, the patient wanted to discuss this with his primary care physician Dr. Ruth who we will see him in 3 days. This discharge process took approximately 35 minutes Patient Condition at Discharge: Stable Plan - Discharge Summary New Discharge Prescriptions: No Action No Known Home Medications [No Known Home Medications] Discharge Medication List No Known Home Medications [No Known Home Medications] 12/24/16 [History] Follow up Appointment(s)/Referral(s): Josiah Nichols MD [Primary Care Provider] - 1-2 days Discharge Disposition: HOME SELF-CARE
== END 2016-12-27 13:00 | disposition home or self-care (01) | DRG 432 ==
LOC: EC 09:38 → 5MS5E 11:30
PROVIDERS: ADMIT Internal Medicine; ATTEND Internal Medicine
DX: K70.10 Alcoholic hepatitis without ascites (principal); K85.20 Alcohol induced acute pancreatitis without necrosis or infection; K70.0 Alcoholic fatty liver; F10.231 Alcohol dependence with withdrawal delirium; E87.1 Hypo-osmolality and hyponatremia; E86.0 Dehydration; F17.200 Nicotine dependence, unspecified, uncomplicated; E87.6 Hypokalemia; Y90.1 Blood alcohol level of 20-39 mg/100 ml; F31.9 Bipolar disorder, unspecified; Z90.49 Acquired absence of other specified parts of digestive tract
CPT/HCPCS: 36415; 74000; 74177; 80048; 80053; 80320; 81001; 82150; 83690; 83735; 83935; 84295; 84300; 85025; 85610; 96361; 96365; 96366; 96372; 96375; 99285

== ENCOUNTER 2017-01-05 15:49 | Emergency (ER) | payer BC, OTHER ==
[2017-01-05] MEDS ORDERED: SODIUM CHLORIDE 0.9% 1,000 ML with MVI, ADULT NO.4 WITH VIT K 10 ML, THIAMINE 100 MG, F... IV ONE ×4 (15:59)
[2017-01-05] MEDS ORDERED: SODIUM CHLORIDE 0.9% 1,000 ML IV STA (15:59)
[2017-01-05] MEDS ORDERED: LORazepam 2 MG/ML SYRINGE IV STA (15:59)
[2017-01-05] MEDS ORDERED: ONDANSETRON 4 MG/2 ML VIAL IVP STA (16:02)
--- NOTE | 2017-01-05 16:32 | ED ---
Alcohol HPI - General Chief Complaint: Alcohol Stated Complaint: Alcohal withdrawal Time Seen by Provider: 01/05/17 15:59 Source: patient, RN notes reviewed Mode of arrival: ambulatory Limitations: no limitations - History of Present Illness Initial Comments: this a 36-year-old male presents emergency Department with chief complaint of Alcohol withdrawal. Patient states he's been drinking heavily over the last 2 weeks.patient states she's had on and off problems with alcohol use. Patient has been in rehab last time was last year. Patient complains of feeling shaky, nausea and vomiting. Patient denies any hallucinations visual, audible or tactile. Patient denies any chest pain, shortness breath, headache, dizziness, fever or chills. - Related Data Previous Rx's Medication Instructions Recorded chlordiazePOXIDE HCl [Librium] 25 mg PO QID #20 capsule 01/05/17 Allergies Allergy/AdvReac Type Severity Reaction Status Date / Time No Known Allergies Allergy Verified 01/05/17 16:20 Review of Systems ROS Statement: Those systems with pertinent positive or pertinent negative responses have been documented in the HPI. ROS Other: All systems not noted in ROS Statement are negative. Past Medical History Past Medical History: No Reported History Additional Past Medical History / Comment(s): Episode of acute pancreatitis requiring admission. History of Any Multi-Drug Resistant Organisms: None Reported Past Surgical History: Tonsillectomy Past Anesthesia/Blood Transfusion Reactions: No Reported Reaction Past Psychological History: No Psychological Hx Reported Smoking Status: Current every day smoker Past Alcohol Use History: Abuse, Daily, Heavy Past Drug Use History: None Reported - Past Family History Father Additional Family Medical History / Comment(s): Father is alive at age 57 with no major medical problems. Mother is alive at age of 56 with no major medical problems. Patient has 1 sister with no known medical problems. Patient does not have any children. Mother Family Medical History: No Reported History Additional Family Medical History / Comment(s): Mother is healthy and 56 yrs old. General Exam Limitations: no limitations Course Vital Signs 01/05/17 01/05/17 15:52 16:45 Temperature 98.7 F 98.6 F Pulse Rate 104 H 105 H Respiratory 18 18 Rate Blood Pressure 138/87 145/84 O2 Sat by Pulse 100 99 Oximetry Medical Decision Making - Medical Decision Making 36-year-old male presented for alcohol withdrawal. [facility] he has no symptoms at this time his shaking resolved he states he does feel improved. Patient will be discharged with [facility] patient will follow-up with PCP tomorrow return parameters were discussed. - Lab Data Result diagrams: 01/05/17 16:45 01/05/17 16:45 Lab Results 01/05/17 01/05/17 01/05/17 Range/Units 16:45 16:45 16:45 WBC 3.8 (3.8-10.6) k/uL RBC 4.02 L (4.30-5.90) m/uL Hgb 13.0 (13.0-17.5) gm/dL Hct 39.0 (39.0-53.0) % MCV 97.0 D (80.0-100.0) fL MCH 32.4 (25.0-35.0) pg MCHC 33.4 (31.0-37.0) g/dL RDW 14.9 (11.5-15.5) % Plt Count 428 D (150-450) k/uL Neutrophils % 68 % Lymphocytes % 24 % Monocytes % 5 % Eosinophils % 1 % Basophils % 1 % Neutrophils # 2.6 (1.3-7.7) k/uL Lymphocytes # 0.9 L (1.0-4.8) k/uL Monocytes # 0.2 (0-1.0) k/uL Eosinophils # 0.0 (0-0.7) k/uL Basophils # 0.0 (0-0.2) k/uL PT 10.3 (9.0-12.0) sec INR 1.0 (<1.2) Sodium 137 (137-145) mmol/L Potassium 3.9 (3.5-5.1) mmol/L Chloride 96 L (98-107) mmol/L Carbon Dioxide 28 (22-30) mmol/L Anion Gap 13 mmol/L BUN 12 (9-20) mg/dL Creatinine 0.58 L (0.66-1.25) mg/dL Est GFR (MDRD) Af Amer >60 (>60 ml/min/1.73 sqM) Est GFR (MDRD) Non-Af >60 (>60 ml/min/1.73 sqM) Glucose 88 (74-99) mg/dL Calcium 9.1 (8.4-10.2) mg/dL Magnesium 1.4 L (1.6-2.3) mg/dL Total Bilirubin 0.6 (0.2-1.3) mg/dL AST 95 H (17-59) U/L ALT 159 H (21-72) U/L Alkaline Phosphatase 103 (38-126) U/L Total Protein 6.8 (6.3-8.2) g/dL Albumin 4.4 (3.5-5.0) g/dL Amylase 47 (30-110) U/L Lipase 313 H (23-300) U/L Urine Color Urine Appearance (Clear) Urine pH (5.0-8.0) Ur Specific [place] (1.001-1.035) Urine Protein (Negative) Urine Glucose (UA) (Negative) Urine Ketones (Negative) Urine Blood (Negative) Urine Nitrite (Negative) Urine Bilirubin (Negative) Urine Urobilinogen (<2.0) mg/dL Ur Leukocyte Esterase (Negative) Urine RBC (0-5) /hpf Urine WBC (0-5) /hpf Ur Squamous Epith Cells (0-4) /hpf Urine Bacteria (None) /hpf Urine Mucus (None) /hpf Urine Opiates Screen (NotDetected) Ur Oxycodone Screen (NotDetected) Urine Methadone Screen (NotDetected) Ur Propoxyphene Screen (NotDetected) Ur Barbiturates Screen (NotDetected) U Tricyclic Antidepress (NotDetected) Ur Phencyclidine Scrn (NotDetected) Ur Amphetamines Screen (NotDetected) U Methamphetamines Scrn (NotDetected) U Benzodiazepines Scrn (NotDetected) Urine Cocaine Screen (NotDetected) U Marijuana (THC) Screen (NotDetected) Serum Alcohol <10 mg/dL 01/05/17 Range/Units 17:40 WBC (3.8-10.6) k/uL RBC (4.30-5.90) m/uL Hgb (13.0-17.5) gm/dL Hct (39.0-53.0) % MCV (80.0-100.0) fL MCH (25.0-35.0) pg MCHC (31.0-37.0) g/dL RDW (11.5-15.5) % Plt Count (150-450) k/uL Neutrophils % % Lymphocytes % % Monocytes % % Eosinophils % % Basophils % % Neutrophils # (1.3-7.7) k/uL Lymphocytes # (1.0-4.8) k/uL Monocytes # (0-1.0) k/uL Eosinophils # (0-0.7) k/uL Basophils # (0-0.2) k/uL PT (9.0-12.0) sec INR (<1.2) Sodium (137-145) mmol/L Potassium (3.5-5.1) mmol/L Chloride (98-107) mmol/L Carbon Dioxide (22-30) mmol/L Anion Gap mmol/L BUN (9-20) mg/dL Creatinine (0.66-1.25) mg/dL Est GFR (MDRD) Af Amer (>60 ml/min/1.73 sqM) Est GFR (MDRD) Non-Af (>60 ml/min/1.73 sqM) Glucose (74-99) mg/dL Calcium (8.4-10.2) mg/dL Magnesium (1.6-2.3) mg/dL Total Bilirubin (0.2-1.3) mg/dL AST (17-59) U/L ALT (21-72) U/L Alkaline Phosphatase (38-126) U/L Total Protein (6.3-8.2) g/dL Albumin (3.5-5.0) g/dL Amylase (30-110) U/L Lipase (23-300) U/L Urine Color Yellow Urine Appearance Clear (Clear) Urine pH 8.5 H (5.0-8.0) Ur Specific [place] 1.013 (1.001-1.035) Urine Protein 1+ H (Negative) Urine Glucose (UA) Negative (Negative) Urine Ketones 1+ H (Negative) Urine Blood Negative (Negative) Urine Nitrite Negative (Negative) Urine Bilirubin Negative (Negative) Urine Urobilinogen <2.0 (<2.0) mg/dL Ur Leukocyte Esterase Negative (Negative) Urine RBC 1 (0-5) /hpf Urine WBC <1 (0-5) /hpf Ur Squamous Epith Cells <1 (0-4) /hpf Urine Bacteria Rare H (None) /hpf Urine Mucus Rare H (None) /hpf Urine Opiates Screen Not Detected (NotDetected) Ur Oxycodone Screen Not Detected (NotDetected) Urine Methadone Screen Not Detected (NotDetected) Ur Propoxyphene Screen Not Detected (NotDetected) Ur Barbiturates Screen Not Detected (NotDetected) U Tricyclic Antidepress Not Detected (NotDetected) Ur Phencyclidine Scrn Not Detected (NotDetected) Ur Amphetamines Screen Not Detected (NotDetected) U Methamphetamines Scrn Not Detected (NotDetected) U Benzodiazepines Scrn Not Detected (NotDetected) Urine Cocaine Screen Not Detected (NotDetected) U Marijuana (THC) Screen Not Detected (NotDetected) Serum Alcohol mg/dL Disposition Clinical Impression: Alcohol abuse Disposition: HOME SELF-CARE Condition: Stable Instructions: Alcohol Withdrawal (ED) Additional Instructions: Please return to the Emergency Department if symptoms worsen or any other concerns. Prescriptions: chlordiazePOXIDE HCl [Librium] 25 mg PO QID #20 capsule Referrals: Josiah Nichols MD [Primary Care Provider] - 1-2 days Time of Disposition: 18:09
[2017-01-05 17:15] LABS: Prothrombin Time 10.3 sec (9.0-12.0)
[2017-01-05 17:16] LABS: Basophils % (A) 1 %; CH 33.1; CHCM 34.3; Eosinophils % (A) 1 %; HDW 2.73; Luc # (Auto) 0.04; Luc % (Auto) 1; Lymphocytes # (A) 0.9 k/uL (1.0-4.8); Lymphocytes % (A) 24 %; MCH 32.4 pg (25.0-35.0); MCHC 33.4 g/dL (31.0-37.0); Mean Platelet Volume 6.6; Monocytes # (A) 0.2 k/uL (0-1.0); Monocytes % (A) 5 %; Neutrophils # (A) 2.6 k/uL (1.3-7.7); Neutrophils % (A) 68 %; RBC 4.02 m/uL (4.30-5.90); RDW 14.9 % (11.5-15.5); WBC 3.8 k/uL (3.8-10.6); WBC (Perox) 3.86
[2017-01-05 17:19] LABS: ALT 159 U/L (21-72); AST 95 U/L (17-59); Alcohol <10 mg/dL; Alkaline Phosphatase 103 U/L (38-126); Amylase 47 U/L (30-110); Anion Gap 13 mmol/L; Blood Urea Nitrogen 12 mg/dL (9-20); Calcium 9.1 mg/dL (8.4-10.2); Carbon Dioxide 28 mmol/L (22-30); Chloride 96 mmol/L (98-107); Glucose 88 mg/dL (74-99); Magnesium 1.4 mg/dL (1.6-2.3); Non-African American GFR(MDRD) >60 (>60 ml/min/1.73 sqM); Potassium 3.9 mmol/L (3.5-5.1); Sodium 137 mmol/L (137-145); Total Bilirubin 0.6 mg/dL (0.2-1.3); Total Protein 6.8 g/dL (6.3-8.2)
[2017-01-05 17:38] VITALS: TEMP 98.6
[2017-01-05 17:57] LABS: Appearance,Urine Clear (Clear); Bacteria,Urine Rare /hpf; Bilirubin,Urine Negative (Negative); Glucose,Urine (UA) Negative (Negative); Ketones,Urine 1+ (Negative); Leukocyte Esterase,Urine Negative (Negative); Mucus,Urine Rare /hpf; Nitrite,Urine Negative (Negative); PH, Urine 8.5 (5.0-8.0); Particle Count 2681; Protein,Urine 1+ (Negative); RBC,Urine 1 /hpf (0-5); Specific Gravity,Urine 1.013 (1.001-1.035); Squamous Epithelial Cell,Urine <1 /hpf (0-4); UA Billing (MACRO vs. MICRO) MICRO; Urobilinogen,Urine <2.0 mg/dL (<2.0); WBC,Urine <1 /hpf (0-5)
[2017-01-05] MEDS ORDERED: ONDANSETRON 4 MG ODT STARTER PACK 2 TAB BTL PO STA (18:09)
[2017-01-05 19:10] VITALS: BP 131/84; PULSE 109; RESP 20
== END 2017-01-05 19:17 | disposition home or self-care (01) ==
LOC: EC 15:49
DX: F10.10 Alcohol abuse, uncomplicated (principal); R11.2 Nausea with vomiting, unspecified; F17.200 Nicotine dependence, unspecified, uncomplicated
CPT/HCPCS: 36415; 80053; 82150; 83690; 83735; 85025; 85610; 81001; 80306; 80320; 99284; 96365; 96366; 96375 ×2; J2060; J3411; J2405; S0119

== ENCOUNTER 2017-07-03 14:58 | Inpatient (IN) | payer BC, MEDICAID ==
--- NOTE | 2017-07-03 15:54 | ED ---
General Adult HPI - General Chief complaint: Psychiatric Symptoms Stated complaint: mental health Time Seen by Provider: 07/03/17 15:27 Source: patient, RN notes reviewed Mode of arrival: ambulatory Limitations: no limitations - History of Present Illness Initial comments: Patient is a pleasant 36-year-old male presenting to the emergency Department with depression and suicidal thoughts. Patient states he has recurrent thoughts , worsening past couple of days. Patient has been drinking the last couple of days. Patient states he always has a plan however will not state what it is. No homicidal thoughts. No hallucinations. No physical complaints. Patient has been clean from heroin for 6 years now. - Related Data Home Medications Medication Instructions Recorded Confirmed Diazepam [Valium] 10 mg PO DAILY 07/03/17 07/03/17 Divalproex ER [Depakote ER] 1,000 mg PO DAILY 07/03/17 07/03/17 traZODone HCL 50 mg PO HS 07/03/17 07/03/17 Allergies Allergy/AdvReac Type Severity Reaction Status Date / Time No Known Allergies Allergy Verified 07/03/17 15:28 Review of Systems ROS Statement: Those systems with pertinent positive or pertinent negative responses have been documented in the HPI. ROS Other: All systems not noted in ROS Statement are negative. Constitutional: Denies: fever Eyes: Denies: eye pain ENT: Denies: ear pain Respiratory: Denies: cough Cardiovascular: Denies: chest pain Endocrine: Denies: fatigue Gastrointestinal: Denies: abdominal pain Genitourinary: Denies: dysuria Musculoskeletal: Denies: back pain Skin: Denies: rash Neurological: Denies: weakness Psychiatric: Reports: depression, suicidal thoughts Past Medical History Past Medical History: No Reported History Additional Past Medical History / Comment(s): Episode of acute pancreatitis requiring admission. History of Any Multi-Drug Resistant Organisms: None Reported Past Surgical History: Tonsillectomy Past Anesthesia/Blood Transfusion Reactions: No Reported Reaction Past Psychological History: Depression Smoking Status: Current every day smoker Past Alcohol Use History: Abuse, Daily, Heavy Past Drug Use History: None Reported - Past Family History Father Additional Family Medical History / Comment(s): Father is alive at age 57 with no major medical problems. Mother is alive at age of 56 with no major medical problems. Patient has 1 sister with no known medical problems. Patient does not have any children. Mother Family Medical History: No Reported History Additional Family Medical History / Comment(s): Mother is healthy and 56 yrs old. General Exam Limitations: no limitations General appearance: alert, in no apparent distress Head exam: Present: atraumatic Eye exam: Present: normal appearance, PERRL, nystagmus ENT exam: Present: normal oropharynx Neck exam: Present: normal inspection Respiratory exam: Present: normal lung sounds bilaterally Cardiovascular Exam: Present: regular rate, normal rhythm GI/Abdominal exam: Present: soft. Absent: tenderness Extremities exam: Present: normal inspection Neurological exam: Present: alert Psychiatric exam: Present: depressed Skin exam: Present: normal color Course Vital Signs 07/03/17 07/03/17 15:28 17:36 Temperature 98.5 F Pulse Rate 80 79 Respiratory 16 18 Rate Blood Pressure 127/85 131/66 O2 Sat by Pulse 99 99 Oximetry Medical Decision Making - Medical Decision Making Patient was seen by mental health services, who will admit - Lab Data Lab Results 07/03/17 Range/Units 15:32 Urine Opiates Screen Not Detected (NotDetected) Ur Oxycodone Screen Not Detected (NotDetected) Urine Methadone Screen Not Detected (NotDetected) Ur Propoxyphene Screen Not Detected (NotDetected) Ur Barbiturates Screen Not Detected (NotDetected) U Tricyclic Antidepress Not Detected (NotDetected) Ur Phencyclidine Scrn Not Detected (NotDetected) Ur Amphetamines Screen Not Detected (NotDetected) U Methamphetamines Scrn Not Detected (NotDetected) U Benzodiazepines Scrn Detected H (NotDetected) Urine Cocaine Screen Not Detected (NotDetected) U Marijuana (THC) Screen Not Detected (NotDetected) Disposition Clinical Impression: Suicidal ideation, Depression Disposition: TRANSFER TO PSYCH HOSP/UNIT Referrals: Josiah Nichols MD [Primary Care Provider] - 1-2 days Decision Time: 00:41
[2017-07-03 16:04] LABS: Amphetamine Screen,Urine Not Detected (NotDetected); Cocaine Screen,Urine Not Detected (NotDetected); Opiate Screen,Urine Not Detected (NotDetected); Phencyclidine Screen,Urine Not Detected (NotDetected); Urn Cannabinoid Scrn Not Detected (NotDetected)
[2017-07-03 16:05] LABS: Barbiturate Screen,Urine Not Detected (NotDetected); Benzodiazepines Screen,Urine Detected (NotDetected); Methadone Screen, Urine Not Detected (NotDetected); Oxycodone Screen, Urine Not Detected (NotDetected); Tricyclic Antidepressant,Urine Not Detected (NotDetected)
[2017-07-03] MEDS ORDERED: LORazepam 1 MG TAB PO STA (19:18)
[2017-07-04] MEDS ORDERED: ZIPRASIDONE 20 MG VIAL IM PRN (00:43)
[2017-07-04] MEDS ORDERED: MAGNESIUM HYDROXIDE 2,400 MG/10 ML CUP PO PRN (00:43)
[2017-07-04] MEDS ORDERED: MAG HYDROX/AL HYDROX/SIMETH 30 ML CUP PO PRN (00:43)
[2017-07-04] MEDS ORDERED: ACETAMINOPHEN TAB 325 MG TAB PO PRN (00:43)
[2017-07-04] MEDS ORDERED: LORazepam 1 MG TAB PO PRN (00:43)
[2017-07-04 01:21] VITALS: BMI 23.9
--- NOTE | 2017-07-04 07:08 | P.MDCNMH ---
History of Present Illness H&P Date: 07/04/17 Chief Complaint: Medical management 36-year-old male with no significant past medical history presented due to suicidal ideation. Patient does have history of depression, and has been compliant with his medications per his report. He has history of heavy alcohol drinking however he has cut back in over the past 7-8 months almost to 0 alcohol intake however over the past few days he reports going back to drinking. Otherwise at this time he denies any complaints of chest pain, shortness of breath, fevers or chills, abdominal pain, diarrhea or constipation. Review of Systems Constitutional: Patient denies fever, denies chills, denies night sweating, denies significant weight changes Eyes: Patient denies visual changes, denies eye pain ENT: Patient denies ear pain, denies rhinorrhea, denies sore throat Cardiovascular: Patient denies chest pain, denies exertional dyspnea, denies peripheral leg edema, denies orthopnea, denies paroxysmal nocturnal dyspnea Respiratory:Patient denies cough, denies wheezing, denies shortness of breath Gastrointestinal: Patient denies diarrhea, denies constipation, denies nausea , denies vomiting, denies abdominal pain Genitourinary: Patient denies dysuria, denies hematuria, denies changes in urinary habits, denies genital lesions Musculoskeletal: Patient denies muscle pain, denies joint pain Psychiatric: Patient reports anxiety, reports depression, or suicidal ideation without specific plan Endocrine: Patient denies heat intolerance, denies cold intolerance, denies excessive thirst, denies polyuria Neurological: Patient denies focal neurologic deficits, denies weakness, denies numbness, denies tingling Hem/Lymphatic: Patient denies bleeding tendency, denies bruising, denies swollen lymph glands Allergic/Immun: Patient denies recent allergic reactions Skin: Patient denies rashes, denies pruritis, denies ulcers Past Medical History Past Medical History: No Reported History Additional Past Medical History / Comment(s): Episode of acute pancreatitis requiring admission 2017, depression History of Any Multi-Drug Resistant Organisms: None Reported Past Surgical History: Tonsillectomy Past Anesthesia/Blood Transfusion Reactions: No Reported Reaction Past Psychological History: Depression Additional Psychological History / Comment(s): Pt resides with his father. He is independent. He states he can drive. Pt has been in [place] multiple times. Smoking Status: Current every day smoker Past Alcohol Use History: Daily Additional Past Alcohol Use History / Comment(s): Patient is a smoker 1.5 packs of cigarettes per day since age 21. Patient drinks a half gallon to one gallon of vodka per day on and off for many years. 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 Mother is alive at age of 56 with no major medical problems. Patient has 1 sister with no known medical problems. Patient does not have any children. Mother Family Medical History: No Reported History Additional Family Medical History / Comment(s): Mother is healthy and 56 yrs old. Medications and Allergies Home Medications and Allergies Comment(s): Reviewed and patient claims to be compliant Home Medications Medication Instructions Recorded Confirmed Type Diazepam [Valium] 10 mg PO DAILY 07/03/17 07/04/17 History Divalproex ER [Depakote ER] 1,000 mg PO DAILY 07/03/17 07/04/17 History traZODone HCL 50 mg PO HS 07/03/17 07/04/17 History Allergies Allergy/AdvReac Type Severity Reaction Status Date / Time No Known Allergies Allergy Verified 07/04/17 01:50 Physical Exam Vitals: Vital Signs Temp Pulse Pulse Resp BP BP Pulse Ox 07/04/17 01:14 98.6 F 93 16 130/80 95 07/04/17 00:47 106 H 16 131/73 94 L 07/03/17 17:36 79 18 131/66 99 07/03/17 15:28 98.5 F 80 16 127/85 99 Intake and Output 07/03/17 07/04/17 07/04/17 22:59 06:59 14:59 Other: Weight 72.575 kg 71.412 kg Constitutional: No acute distress, conversant, pleasant Eyes: Anicteric sclerae, moist conjunctiva, no lid-lag Pupils equal round reactive to light ENMT: NC/AT Oropharynx clear, no erythema, exudates Neck: Supple, FROM, no masses, or JVD No carotid bruits No thyromegaly Lungs: Clear to auscultation Clear to percussion Normal respiratory effort, no accessory muscle use Cardiovascular: Heart regular in rate and rhythm, No murmurs, gallops, or rubs No peripheral edema Abdominal: Soft Nontender, no guarding, rebound or rigidity Abdomen moving with respiration Normoactive bowel sounds No hepatomegaly, No splenomegaly No palpable mass No abdominal wall hernia noted Skin: Normal temperature, tone, texture, turgor No induration No subcutaneous nodules No rash, lesions No ulcers Extremities: No digital cyanosis No clubbing Pedal pulses intact and symmetrical Radial pulses intact and symmetrical No calf tenderness Psychiatric: Alert and oriented to person, place and time Flat affect Poor judgment Neuro Muscles Strength 5/5 in all 4 extremities Sensation to light touch grossly present throughout No focal sensory deficits Lymphatics: no palpable cervical or supraclavicular , or inguinal lymph nodes Cranial Nerve Examination - Cranial Nerves Cranial Nerve II- Optic: Intact Cranial Nerve III- Oculomotor: Intact Cranial Nerve IV- Trochlear: Intact Cranial Nerve V- Trigeminal: Intact Cranial Nerve - Abducens: Intact Cranial Nerve VII- Facial: Intact Cranial Nerve VIII- Auditory: Intact Cranial Nerve IX- Glossopharyngeal: Intact Cranial Nerve X- Vagus: Intact Cranial Nerve XI- Accessory: Intact Cranial Nerve XII- Hypoglossal: Intact Results Labs: Abnormal Lab Results - Last 24 Hours (Table) 07/03/17 Range/Units 15:32 U Benzodiazepines Scrn Detected H (NotDetected) Assessment and Plan Assessment: 36-year-old male with history of depression and heavy alcohol use in the past, presented due to suicidal ideation denies any current physical complaints at this time. Plan: #Suicidal ideation #Depression Management per psych Suicide precautions #Alcohol abuse Monitor for signs of alcohol withdrawal Benzos when necessary to mitigate symptoms of alcohol withdrawals Thiamine and multivitamin #Smoking Patient counseled to quit smoking, dictating replacement therapy offered #DVT prophylaxis patient is low risk and ambulatory Thank you for allowing us to participate in the care of this patient. We will follow peripherally. Do not hesitate to contact us with questions. Someone can be reached from the [facility] hospitalist group at all hours of the day at [phone].
[2017-07-04] MEDS ORDERED: chlordiazePOXIDE 25 MG CAP PO PRN (07:12)
[2017-07-04] MEDS: NICOTINE 14MG/24HR PATCH TRANSDERM SCH (09:13)
[2017-07-04] MEDS: CITALOPRAM HYDROBROMIDE 10 MG TAB PO SCH (10:49)
[2017-07-04] MEDS: MULTIVITAMINS, THERA 1 EACH TAB PO SCH (12:17)
[2017-07-04] MEDS: THIAMINE 100 MG TAB PO SCH (12:17)
--- NOTE | 2017-07-04 12:21 | P.HP ---
Psychiatric H&P - . H&P Date: 07/04/17 History & Physical: Allergies Allergy/AdvReac Type Severity Reaction Status Date / Time No Known Allergies Allergy Verified 07/04/17 01:50 Vital Signs Temp 98.6 F 07/04/17 01:14 Pulse 95 07/04/17 09:20 Resp 20 07/04/17 09:20 BP 141/83 07/04/17 09:20 Pulse Ox 95 07/04/17 01:14 Intake & Output 07/03/17 07/04/17 07/04/17 18:59 06:59 18:59 Weight 72.575 kg 71.412 kg Laboratory Last Values Urine Opiates Screen Not Detected (NotDetected) 07/03/17 15:32 Ur Oxycodone Screen Not Detected (NotDetected) 07/03/17 15:32 Urine Methadone Screen Not Detected (NotDetected) 07/03/17 15:32 Ur Propoxyphene Screen Not Detected (NotDetected) 07/03/17 15:32 Ur Barbiturates Screen Not Detected (NotDetected) 07/03/17 15:32 Valproic Acid <10.0 ug/mL 07/04/17 07:56 U Tricyclic Antidepress Not Detected (NotDetected) 07/03/17 15:32 Ur Phencyclidine Scrn Not Detected (NotDetected) 07/03/17 15:32 Ur Amphetamines Screen Not Detected (NotDetected) 07/03/17 15:32 U Methamphetamines Scrn Not Detected (NotDetected) 07/03/17 15:32 U Benzodiazepines Scrn Detected (NotDetected) H 07/03/17 15:32 Urine Cocaine Screen Not Detected (NotDetected) 07/03/17 15:32 U Marijuana (THC) Screen Not Detected (NotDetected) 07/03/17 15:32 07/04/17 12:05 Identification: Patient is a 36-year-old male who came to the emergency room with suicidal ideation. History of Present Illness: Patient states that he began using alcohol again Friday prior to his admission, stating that he has gone through 2 half gallons of vodka since Friday through . Patient states that he began to feel suicidal with passive thoughts that if I wasn't here things would be better. Patient states that he had no active plan to commit suicide and states that he does not own any guns. He states that he has been applying for jobs recently and has not gotten any response from all of his applications and began to get frustrated with his inability to find work. He states that he has on and off again relationship with a girlfriend of 5 years has also been problematic. Patient states that he had not had anything to drink since march when he was discharged from [place]. He states that he was placed on Valium by his primary care physician in [place] secondary to anxiety and began this at the end of May. He reports that he was placed on trazodone 50 mg for assistance with his sleep. Patient states the Depakote 1000 mg was started due to a diagnosis of bipolar disorder that was made in 2003 when he was in [facility]. Patient states at that time he took a survey which showed that he had symptoms of bipolar disorder and was begun on Depakote at that time. Patient was admitted to this psychiatric facility in October 2016 and states that after discharge he started using alcohol again and was readmitted here in December 2016 to the medical floor with a diagnosis of pancreatitis and alcohol withdrawal. Patient states he went to [place] in February 2017. Patient has not had any follow-up with psychiatric services and has not been attending AA meetings. 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 Patient is unable to endorse any history of psychotic symptoms, is unable to endorse any manic symptoms, and states that he does have depressive symptoms currently and in the past especially when using alcohol. Patient states that he has never had any seizures with alcohol withdrawal but did have visual hallucinations when he was withdrawing here in December 2016. Patient states that when she begins using alcohol is not been able to sleep well and is unable to state why he was feeling anxious at the end of May other than his frustration with not being able to find work. Past Psychiatric History: Patient has 2 prior psychiatric admissions one in 2003 when intoxicated he took an overdose of pills and then again in October 2016 here. Patient has 3 prior rehab admissions his last was to [place] beginning in February 2017. He has not had any psychiatric follow-up since his discharge and states that his primary care physician has been prescribing Valium 10 mg daily trazodone 50 mg at night and Depakote 1000 mg daily. Past Medical/Surgical History: Patient is a history of pancreatitis in December 2016, status post tonsillectomy Family History: Patient reports no family history of psychiatric disorder, paternal grandfather, maternal grandfather both abused alcohol. 2 maternal uncles abused both alcohol and drugs. No completed suicides in the family. Social History: Patient was born and raised to parents in [place] both of his parents are alive. He states his parents are currently . He has been living with his father in [place]. He has one sister. Patient completed high school and tried college but states he was unsuccessful. Patient states he then worked at a [employer] in [place] for 5 years until it closed and after that was unable to find work other than in [employer]. He states he has not held a job for the last 3-1/2 years. 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 Patient has no source of support and his father is currently supporting him. He states he has never been and has no children. He has had an on-and-off relationship with a girlfriend for the last 5 years. He reports no abuse history. Substance Use History: Patient states he began using alcohol the age of 14 and began using it on a regular basis at the age of 21 mostly on the weekends. He states by his late 20s he was drinking on a daily basis and for the last 1-1/2 years he has been using a half gallon daily. He states his longest sobriety was 14 months in 2011 and states that he had not had any alcohol since mid March until this past week. Patient states he used marijuana from the age of [age], he used heroin IV for a year in 2010. He states he has tried numerous other drugs but has not used any of them on a regular basis. Patient does use tobacco products. Legal History: Patient states he's been charged with DUI in the early 1999, possession of narcotics in 2009 possession of an analog Mental status: Appearance/Attitude: Patient is appropriately dressed, makes good eye contact and is cooperative. Behavior: Patient does not display any psychomotor agitation or retardation, no evidence of tremors, he states that he had some sweats last night. Speech/Language: Patient's speech is spontaneous and normal volume and rhythm and he is coherent. Thought Process: Patient is goal-directed there is no evidence of circumstantial or tangential thought and no loose associations or flight of ideas. Thought Content: Denies any auditory or visual hallucinations and no delusions or paranoid ideation were elicited. Patient states that he slept fairly well last evening and has been able to eat without difficulty. He states he is not feeling tremulous or shaky. Patient states that he is frustrated with his inability to find work. Suicidal/Homicidal Ideation: Patient states that he had passive suicidal thoughts yesterday stating that he wished he just wasn't here, he denies any plan and currently states he is not suicidal or homicidal. Sensorium/Cognition: Patient is alert and oriented to person, place, and time and his recent and remote memory are grossly intact. Mood/Affect: Patient's mood is slightly depressed and his affect is slightly blunted Insight/Judgment: Patient's insight and judgment are fair Intellectual Functioning: Patient's intellectual functioning appears average Strength/Weakness: Patient has supportive family, housing/relapse Assessment: Patient presents after relapsing with alcohol for the last 6 days after being sober since mid March. Patient has a history of alcohol use into his 20s with heavy use in the last 1-1/2 years. Patient states he became frustrated with his inability to find work, difficulties in an on-and-off relationship with his girlfriend and return to using alcohol. Patient has been diagnosed in the past with bipolar disorder but is not able to endorse any symptoms of felecia in the past. Patient made a suicide attempt in 1999 for taking an overdose of pills while intoxicated. Patient presented to the emergency room with suicidal thoughts, and recent relapse to alcohol. Admission Diagnosis: Alcohol-induced depressive disorder, alcohol use disorder Plan: Patient was admitted on a voluntary basis, placed on routine precautions and group and activity therapy were ordered. Patient also had routine laboratory studies performed and a medical consultation was obtained. I will discontinue the Librium and continue using Ativan for any alcohol withdrawal symptoms. I discussed with the patient that using the benzodiazepines would not be recommended in someone who has had an alcohol use disorder for anxiety. I discussed the use and side effects of Celexa with the patient to target both his complaints of anxiety as well as his symptoms of depression and will begin 10 mg in the morning. Patient and I discussed continuing trazodone 50 mg at bedtime to to assist with his sleep. As the patient is not able to endorse any manic symptoms in the past I will discontinue the Depakote. Patient requires hospitalization to further stabilize his mood. 07/04/17 12:12
[2017-07-04 18:38] LABS: Hemoglobin A1C 4.6 % (4.0-6.0)
[2017-07-04] MEDS: traZODone HCL 50 MG TAB PO SCH (20:16)
[2017-07-05] MEDS ORDERED: chlordiazePOXIDE 25 MG CAP PO PRN (00:01)
[2017-07-05] MEDS: CITALOPRAM HYDROBROMIDE 10 MG TAB PO SCH (08:49)
[2017-07-05] MEDS: NICOTINE 14MG/24HR PATCH TRANSDERM SCH (08:49)
[2017-07-05 08:57] LABS: ALT 177 U/L (21-72); AST 189 U/L (17-59); Albumin 4.6 g/dL (3.5-5.0); Alkaline Phosphatase 75 U/L (38-126); Anion Gap 13 mmol/L; Blood Urea Nitrogen 16 mg/dL (9-20); Calcium 9.6 mg/dL (8.4-10.2); Carbon Dioxide 29 mmol/L (22-30); Chloride 101 mmol/L (98-107); Cholesterol 201 mg/dL (<200); Glucose 208 mg/dL (74-99); HDL Cholesterol 76 mg/dL (40-60); LDL Cholesterol,Calculated 92 mg/dL (0-99); Potassium 4.4 mmol/L (3.5-5.1); Sodium 143 mmol/L (137-145); Total Bilirubin 1.5 mg/dL (0.2-1.3); Total Protein 7.1 g/dL (6.3-8.2); Triglycerides 167 mg/dL (<150)
[2017-07-05 09:28] LABS: Basophils % (A) 0 %; Eosinophils # (A) 0.2 k/uL (0-0.7); Eosinophils % (A) 4 %; HCT 49.4 % (39.0-53.0); Lymphocytes # (A) 2.3 k/uL (1.0-4.8); Lymphocytes % (A) 51 %; MCH 28.8 pg (25.0-35.0); MCHC 32.4 g/dL (31.0-37.0); MCV 88.8 fL (80.0-100.0); Mean Platelet Volume 7.1; Monocytes # (A) 0.2 k/uL (0-1.0); Monocytes % (A) 5 %; Neutrophils # (A) 1.7 k/uL (1.3-7.7); Neutrophils % (A) 38 %; Platelet Count 207 k/uL (150-450); RBC 5.56 m/uL (4.30-5.90); RDW 12.6 % (11.5-15.5); WBC 4.5 k/uL (3.8-10.6)
[2017-07-05] MEDS: THIAMINE 100 MG TAB PO SCH (12:15)
[2017-07-05] MEDS: MULTIVITAMINS, THERA 1 EACH TAB PO SCH (12:15)
--- NOTE | 2017-07-05 12:17 | P.PN ---
Progress Note - Text Progress Note Date: 07/05/17 I am seeing this patient who is Dr. Bowling's patient today for a follow-up examination. He was started on Celexa and trazodone yesterday. He thinks he is doing well on these medications and does not have any complaints. He denies any adverse effects from medications. He attends groups, socializes with peers and interacting with staff members. This is a white ambulatory male with good hygiene. He is polite and cooperative. He talks rather rule out and gets over inclusive. He does not show any psychomotor agitation or retardation. His mood is cheerful and affect is appropriate. He denies hallucinations, delusional thinking, suicidal and homicidal ideas. He is well oriented with adequate memory concentration etc. Plan: Continue Celexa, trazodone and groups.
[2017-07-05] MEDS: traZODone HCL 50 MG TAB PO SCH (21:52)
[2017-07-06 06:39] VITALS: RESP 16
[2017-07-06] MEDS: CITALOPRAM HYDROBROMIDE 10 MG TAB PO SCH (08:34)
[2017-07-06] MEDS: NICOTINE 14MG/24HR PATCH TRANSDERM SCH (08:34)
[2017-07-06 10:49] LABS: Hepatitis A Antibody IgM Non-Reactive (Non-Reactive); Hepatitis B Core IgM Non-Reactive (Non-Reactive)
[2017-07-06] MEDS: MULTIVITAMINS, THERA 1 EACH TAB PO SCH (12:14)
[2017-07-06] MEDS: THIAMINE 100 MG TAB PO SCH (12:14)
--- NOTE | 2017-07-06 15:55 | P.PN ---
Progress Note - Text Progress Note Date: 07/06/17 Patient was seen for follow-up examination. He does not have any specific complaints or concerns. He takes his medications, attends groups, socializes with peers and interacting with staff members. He denies any adverse effects from his medications. This is a white ambulatory male with good hygiene. He does not show any psychomotor agitation or retardation. His speech is spontaneous relevant and goal-directed. His mood is euthymic and affect is appropriate. He denies suicidal and homicidal ideas. He denies hallucinations and delusional thinking. He is well oriented with adequate memory concentration general knowledge etc. Plan: Continue trazodone Celexa and groups.
[2017-07-06] MEDS: traZODone HCL 50 MG TAB PO SCH (21:23)
[2017-07-07 06:37] VITALS: BP 110/60; PULSE 75; TEMP 97.5
[2017-07-07] MEDS: NICOTINE 14MG/24HR PATCH TRANSDERM SCH (08:59)
[2017-07-07] MEDS: CITALOPRAM HYDROBROMIDE 10 MG TAB PO SCH (08:59)
--- NOTE | 2017-07-07 11:11 | P.DS ---
Providers Date of admission: 07/04/17 00:40 Expected date of discharge: 07/07/17 Attending physician: Lianne Bowling MD Consults: 07/04/17 00:43 Consult Physician Routine Consulting Provider: Deisy Garcia Consult Reason/Comments: For H & P for Medical Follow up Do you want consulting provider notified?: Yes Primary care physician: [facility] Course: Discharge Diagnosis: Alcohol-induced depressive disorder, alcohol use disorder Reason for Admission: Patient is a 36-year-old male who came to the emergency room with suicidal ideation. Patient states that he began using alcohol again Friday prior to his admission, stating that he has gone through 2 half gallons of vodka since Friday through . Patient states that he began to feel suicidal with passive thoughts that if I wasn't here things would be better. Patient states that he had no active plan to commit suicide and states that he does not own any guns. He states that he has been applying for jobs recently and has not gotten any response from all of his applications and began to get frustrated with his inability to find work. He states that he has on and off again relationship with a girlfriend of 5 years has also been problematic. Patient states that he had not had anything to drink since march when he was discharged from [place]. He states that he was placed on Valium by his primary care physician in [place] secondary to anxiety and began this at the end of May. He reports that he was placed on trazodone 50 mg for assistance with his sleep. Patient states the Depakote 1000 mg was started due to a diagnosis of bipolar disorder that was made in [address] in [facility]. Patient states at that time he took a survey which showed that he had symptoms of bipolar disorder and was begun on Depakote at that time. Patient was admitted to this psychiatric facility in October 2016 and states that after discharge he started using alcohol again and was readmitted here in December 2016 to the medical floor with a diagnosis of pancreatitis and alcohol withdrawal. Patient states he went to [place] in February 2017. Patient has not had any follow-up with psychiatric services and has not been attending AA meetings. 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 Patient is unable to endorse any history of psychotic symptoms, is unable to endorse any manic symptoms, and states that he does have depressive symptoms currently and in the past especially when using alcohol. Patient states that he has never had any seizures with alcohol withdrawal but did have visual hallucinations when he was withdrawing here in December 2016. Patient states that when she begins using alcohol is not been able to sleep well and is unable to state why he was feeling anxious at the end of May other than his frustration with not being able to find work. Mental status on Admission: Appearance/Attitude: Patient is appropriately dressed, makes good eye contact and is cooperative. Behavior: Patient does not display any psychomotor agitation or retardation, no evidence of tremors, he states that he had some sweats last night. Speech/Language: Patient's speech is spontaneous and normal volume and rhythm and he is coherent. Thought Process: Patient is goal-directed there is no evidence of circumstantial or tangential thought and no loose associations or flight of ideas. Thought Content: Denies any auditory or visual hallucinations and no delusions or paranoid ideation were elicited. Patient states that he slept fairly well last evening and has been able to eat without difficulty. He states he is not feeling tremulous or shaky. Patient states that he is frustrated with his inability to find work. Suicidal/Homicidal Ideation: Patient states that he had passive suicidal thoughts yesterday stating that he wished he just wasn't here, he denies any plan and currently states he is not suicidal or homicidal. Sensorium/Cognition: Patient is alert and oriented to person, place, and time and his recent and remote memory are grossly intact. Mood/Affect: Patient's mood is slightly depressed and his affect is slightly blunted Insight/Judgment: Patient's insight and judgment are fair Hospital Course: Patient was admitted on a voluntary basis, routine observation was ordered and the patient was also ordered group and activity therapy. Patient had routine laboratory studies as well as a medical consultation. Patient was placed on Ativan for alcohol withdrawal symptoms, he was started on Celexa 10 mg to target his depressive symptoms and continued on trazodone 50 mg for sleep. The patient's Depakote was discontinued as was his Valium. Patient attended groups and activities and participated and stated that he found them helpful. Patient had some withdrawal symptoms the first several days of admission but these resolved with the patient not reporting any tremors, he was sleeping well and eating well. Patient reported that he was no longer having any suicidal ideation, was sleeping well and reported no complaints of anxiety. Patient was interested in outpatient dual diagnosis therapy. Patient will follow-up with his primary care physician regarding his elevated lipid panel as well as his elevated liver enzymes. Patient's hepatitis panels were negative. Patient reported no side effects from the Celexa or trazodone. Patient reported that he was not feeling depressed or anxious and was ready to return home. Allergies No Known Allergies Allergy (Verified 07/04/17 01:50) Laboratory Last Values WBC 4.5 k/uL (3.8-10.6) 07/05/17 08:27 RBC 5.56 m/uL (4.30-5.90) 07/05/17 08:27 Hgb 16.0 gm/dL (13.0-17.5) 07/05/17 08:27 Hct 49.4 % (39.0-53.0) 07/05/17 08:27 MCV 88.8 fL (80.0-100.0) 07/05/17 08:27 MCH 28.8 pg (25.0-35.0) 07/05/17 08:27 MCHC 32.4 g/dL (31.0-37.0) 07/05/17 08:27 RDW 12.6 % (11.5-15.5) 07/05/17 08:27 Plt Count 207 k/uL (150-450) 07/05/17 08:27 Neutrophils % 38 % 07/05/17 08:27 Lymphocytes % 51 % 07/05/17 08:27 Monocytes % 5 % 07/05/17 08:27 Eosinophils % 4 % 07/05/17 08:27 Basophils % 0 % 07/05/17 08:27 Neutrophils # 1.7 k/uL (1.3-7.7) 07/05/17 08:27 Lymphocytes # 2.3 k/uL (1.0-4.8) 07/05/17 08:27 Monocytes # 0.2 k/uL (0-1.0) 07/05/17 08:27 Eosinophils # 0.2 k/uL (0-0.7) 07/05/17 08:27 Basophils # 0.0 k/uL (0-0.2) 07/05/17 08:27 Manual Slide Review Performed 07/05/17 08:27 RBC Morphology Normal 07/05/17 08:27 Sodium 143 mmol/L (137-145) 07/05/17 08:27 Potassium 4.4 mmol/L (3.5-5.1) 07/05/17 08:27 Chloride 101 mmol/L (98-107) 07/05/17 08:27 Carbon Dioxide 29 mmol/L (22-30) 07/05/17 08:27 Anion Gap 13 mmol/L 07/05/17 08:27 BUN 16 mg/dL (9-20) 07/05/17 08:27 Creatinine 0.83 mg/dL (0.66-1.25) 07/05/17 08:27 Est GFR (CKD-EPI)AfAm >90 (>60 ml/min/1.73 sqM) 07/05/17 08:27 Est GFR (CKD-EPI)NonAf >90 (>60 ml/min/1.73 sqM) 07/05/17 08:27 Glucose 208 mg/dL (74-99) H 07/05/17 08:[address] Glu mg/dL 85 07/04/17 07:56 Hemoglobin A1c 4.6 % (4.0-6.0) 07/04/17 07:56 Calcium 9.6 mg/dL (8.4-10.2) 07/05/17 08:27 Total Bilirubin 1.5 mg/dL (0.2-1.3) H 07/05/17 08:27 AST 189 U/L (17-59) H 07/05/17 08:27 ALT 177 U/L (21-72) H 07/05/17 08:27 Alkaline Phosphatase 75 U/L (38-126) 07/05/17 08:27 Total Protein 7.1 g/dL (6.3-8.2) 07/05/17 08:27 Albumin 4.6 g/dL (3.5-5.0) 07/05/17 08:27 Triglycerides 167 mg/dL (<150) H 07/05/17 08:27 Cholesterol 201 mg/dL (<200) H 07/05/17 08:27 LDL Cholesterol, Calc 92 mg/dL (0-99) 07/05/17 08:27 HDL Cholesterol 76 mg/dL (40-60) H 07/05/17 08:27 TSH 2.650 mIU/L (0.465-4.680) 07/05/17 08:27 Urine Opiates Screen Not Detected (NotDetected) 07/03/17 15:32 Ur Oxycodone Screen Not Detected (NotDetected) 07/03/17 15:32 Urine Methadone Screen Not Detected (NotDetected) 07/03/17 15:32 Ur Propoxyphene Screen Not Detected (NotDetected) 07/03/17 15:32 Ur Barbiturates Screen Not Detected (NotDetected) 07/03/17 15:32 Valproic Acid <10.0 ug/mL 07/04/17 07:56 U Tricyclic Antidepress Not Detected (NotDetected) 07/03/17 15:32 Ur Phencyclidine Scrn Not Detected (NotDetected) 07/03/17 15:32 Ur Amphetamines Screen Not Detected (NotDetected) 07/03/17 15:32 U Methamphetamines Scrn Not Detected (NotDetected) 07/03/17 15:32 U Benzodiazepines Scrn Detected (NotDetected) H 07/03/17 15:32 Urine Cocaine Screen Not Detected (NotDetected) 07/03/17 15:32 U Marijuana (THC) Screen Not Detected (NotDetected) 07/03/17 15:32 Hepatitis A IgM Ab Non-Reactive (Non-Reactive) 07/05/17 08:27 Hep Bs Antigen Non-Reactive (Non-Reactive) 07/05/17 08:27 Hep B Core IgM Ab Non-Reactive (Non-Reactive) 07/05/17 08:27 Hep C IgG Ab Non-Reactive (Non-Reactive) 07/05/17 08:27 Discharge Mental Status: Appearance/Attitude: Patient is appropriately dressed, makes good eye contact and is cooperative. Behavior: Patient does not display any psychomotor agitation or retardation. Speech/Language: Patient's speech is spontaneous and of normal volume and rhythm and he is coherent. Thought Process: Patient is goal-directed there is no evidence of loose associations or flight of ideas and he is not circumstantial or tangential. Thought Content: Patient denies any auditory or visual hallucinations and no delusions or paranoid ideation were elicited. Patient states that he has been sleeping and eating well. He reports that he is not having any withdrawal symptoms and reported no complaints of anxiety. He states that he is not feeling worthless or hopeless. Suicidal/Homicidal Ideation: Patient denies any current suicidal or homicidal ideation. Sensorium/Cognition: Patient is alert and oriented to person, place, and time and his recent and remote memory are grossly intact. Mood/Affect: Patient's mood is pleasant and his affect is appropriate Insight/Judgment: Patient's insight and judgment are fair Risk Assessment: Patient's risk is low that he avoid alcohol, and be compliant with follow-up Discharge Plan: Patient will return to live with his father, he will continue on Celexa 10 mg and trazodone 50 mg and will be given prescriptions for these medications. Patient will follow-up with his primary care physician regarding his elevated lipids and elevated liver enzymes. Patient will follow-up at [facility] for outpatient care. patient was encourged to remain sober and be compliant with follow up care. Patient Condition at Discharge: Stable Plan - Discharge Summary New Discharge Prescriptions: New Citalopram Hydrobromide [CeleXA] 10 mg PO DAILY #14 tab Multivitamins, Thera [Multivitamin (formulary)] 1 each PO DAILY@1200 tab traZODone HCL [Desyrel] 50 mg PO HS #14 tab Discontinued traZODone HCL 50 mg PO HS Divalproex ER [Depakote ER] 1,000 mg PO DAILY Diazepam [Valium] 10 mg PO DAILY Discharge Medication List Citalopram Hydrobromide [CeleXA] 10 mg PO DAILY #14 tab 07/07/17 [Rx] Multivitamins, Thera [Multivitamin (formulary)] 1 each PO DAILY@1200 tab [Rx] traZODone HCL [Desyrel] 50 mg PO HS #14 tab 07/07/17 [Rx] Follow up Appointment(s)/Referral(s): [facility] [Other] - 07/08/17 5:15 pm (Eula Must arrive at 17:15 for paperwork prior to appointment at 6:00pm ) Josiah Nichols MD [Primary Care Provider] - 1-2 days Patient Instructions/Handouts: How to Stop Smoking (DC), Depression (GEN), Suicide Prevention for Adults (GEN) Activity/Diet/Wound Care/Special Instructions: keep your follow up appointments. Continue medications as prescribed. No alcohol or street drugs. No guns or weapons. Crisis line . Discharge Disposition: HOME SELF-CARE
[2017-07-07 11:12] LABS: Bilirubin, Delta 0.6 mg/dL (0.0-0.2); Bilirubin,Unconjugated 0.9 mg/dL (0.0-1.1)
[2017-07-07] MEDS: MULTIVITAMINS, THERA 1 EACH TAB PO SCH (11:23)
[2017-07-07] MEDS: THIAMINE 100 MG TAB PO SCH (11:23)
[2017-07-07 11:40] LABS: Appearance,Urine Clear (Clear); Bilirubin,Urine Negative (Negative); Blood,Urine Negative (Negative); Color,Urine Yellow; Glucose,Urine (UA) Negative (Negative); Ketones,Urine Negative (Negative); Leukocyte Esterase,Urine Negative (Negative); Nitrite,Urine Negative (Negative); PH, Urine 5.5 (5.0-8.0); Protein,Urine Trace (Negative); Specific Gravity,Urine 1.023 (1.001-1.035); Urobilinogen,Urine <2.0 mg/dL (<2.0)
== END 2017-07-07 12:25 | disposition home or self-care (01) | DRG 897 ==
LOC: EC 14:58 → 3MHU 07-04 00:40
PROVIDERS: ADMIT Psychiatry & Neurology Psychiatry; ATTEND Psychiatry & Neurology Psychiatry
DX: F10.24 Alcohol dependence with alcohol-induced mood disorder (principal); F10.239 Alcohol dependence with withdrawal, unspecified; R45.851 Suicidal ideations; F41.9 Anxiety disorder, unspecified; F17.210 Nicotine dependence, cigarettes, uncomplicated; Z79.899 Other long term (current) drug therapy; Z91.5 Personal history of self-harm; Z86.39 Personal history of other endocrine, nutritional and metabolic disease; Z71.6 Tobacco abuse counseling
CPT/HCPCS: 80053; 80061; 80074; 80164; 80306; 81003; 82075; 82248; 83036; 84443; 85025; 99285

== ENCOUNTER 2017-08-20 21:51 | Inpatient (IN) | payer BC, OTHER ==
[2017-08-20] MEDS ORDERED: SODIUM CHLORIDE 0.9% 1,000 ML with MVI, ADULT NO.4 WITH VIT K 10 ML, THIAMINE 100 MG, F... IV ONE ×4 (22:05)
[2017-08-20] MEDS ORDERED: SODIUM CHLORIDE 0.9% 500 ML IV STA (22:05)
--- NOTE | 2017-08-20 22:11 | ED ---
Alcohol HPI - General Chief Complaint: Alcohol Stated Complaint: ETOH Time Seen by Provider: 08/20/17 22:00 Source: patient, EMS, RN notes reviewed Mode of arrival: EMS Limitations: no limitations - History of Present Illness Initial Comments: This is a 37-year-old male with a history of alcoholism who states he drinks up to 2 half gallons of vodka every day who states he has not drank since this morning sometime per paramedics was around 9 AM who presents with complaints of feeling shaky and generally weak having hallucinations. Apparently does not eat many solid food in 6 days. He is the one who called EMS to bring him in for evaluation. He denies any suicidal thought or ideation he has had alcohol withdrawal before the seizure history. No nausea no vomiting reported at this time. He does have a history of pancreatitis. Per EMS personnel patient's heart rate was in the 160s upon arrival he was given a liter bolus he did come down to about 130. MD Complaint: alcohol withdrawal, alcohol dependence - Related Data Home Medications Medication Instructions Recorded Confirmed Diazepam [Valium] 10 mg PO TID PRN 08/20/17 08/20/17 Previous Rx's Medication Instructions Recorded Citalopram Hydrobromide [CeleXA] 10 mg PO DAILY #14 tab 07/07/17 Multivitamins, Thera [Multivitamin 1 each PO DAILY@1200 tab 07/07/17 (formulary)] traZODone HCL [Desyrel] 50 mg PO HS #14 tab 07/07/17 Allergies Allergy/AdvReac Type Severity Reaction Status Date / Time No Known Allergies Allergy Verified 08/20/17 22:53 Review of Systems ROS Statement: Those systems with pertinent positive or pertinent negative responses have been documented in the HPI. ROS Other: All systems not noted in ROS Statement are negative. Past Medical History Past Medical History: No Reported History Additional Past Medical History / Comment(s): Episode of acute pancreatitis requiring admission 2017, depression History of Any Multi-Drug Resistant Organisms: None Reported Past Surgical History: Tonsillectomy Past Anesthesia/Blood Transfusion Reactions: No Reported Reaction Past Psychological History: Depression Smoking Status: Current every day smoker Past Alcohol Use History: Abuse, Daily Past Drug Use History: None Reported - Past Family History Father Additional Family Medical History / Comment(s): Father is alive at age 57 with no major medical problems. Mother is alive at age of 56 with no major medical problems. Patient has 1 sister with no known medical problems. Patient does not have any children. Mother Family Medical History: No Reported History Additional Family Medical History / Comment(s): Mother is healthy and 56 yrs old. General Exam - General Exam Comments Initial Comments: This a well-developed asthenic appearing male he does appear disheveled Limitations: no limitations General appearance: alert, anxious Head exam: Present: atraumatic, normocephalic, normal inspection Eye exam: Present: normal appearance, PERRL, EOMI. Absent: scleral icterus, conjunctival injection, periorbital swelling ENT exam: Present: mucous membranes dry Neck exam: Present: normal inspection. Absent: tenderness, meningismus, lymphadenopathy Respiratory exam: Present: normal lung sounds bilaterally. Absent: respiratory distress, wheezes, rales, rhonchi, stridor Cardiovascular Exam: Present: normal rhythm, tachycardia GI/Abdominal exam: Present: soft, normal bowel sounds. Absent: distended, tenderness, guarding, rebound, rigid Extremities exam: Present: normal inspection, full ROM, normal capillary refill. Absent: tenderness, pedal edema, joint swelling, calf tenderness Back exam: Present: normal inspection Neurological exam: Present: alert, oriented X3, CN II-XII intact, other (The patient seemed to have a slight tremor.) Psychiatric exam: Present: normal affect, normal mood Skin exam: Present: warm, dry, intact, normal color. Absent: rash Course Vital Signs 08/20/17 08/20/17 08/20/17 21:59 23:03 23:18 Temperature 98.6 F Pulse Rate 123 H 120 H 120 H Respiratory 18 20 16 Rate Blood Pressure 137/67 102/57 102/57 O2 Sat by Pulse 97 97 98 Oximetry 08/20/17 08/21/17 08/21/17 23:56 00:52 01:10 Temperature 99 F Pulse Rate 120 H 130 H 122 H Respiratory 16 20 16 Rate Blood Pressure 125/58 131/56 O2 Sat by Pulse 97 95 Oximetry 08/21/17 01:39 Temperature Pulse Rate 106 H Respiratory 14 Rate Blood Pressure O2 Sat by Pulse 94 L Oximetry Medical Decision Making - Medical Decision Making Patient was reevaluated on several occasions he did require IV Ativan. He will be admitted for impending DTs and treatment of alcohol withdrawal. Also I'm depletion. - Lab Data Result diagrams: 08/20/17 22:05 08/20/17 22:05 Lab Results 08/20/17 08/20/17 08/20/17 Range/Units 22:05 22:05 22:05 WBC 4.3 (3.8-10.6) k/uL RBC 5.04 (4.30-5.90) m/uL Hgb 14.7 (13.0-17.5) gm/dL Hct 43.6 (39.0-53.0) % MCV 86.6 (80.0-100.0) fL MCH 29.2 (25.0-35.0) pg MCHC 33.8 (31.0-37.0) g/dL RDW 12.8 (11.5-15.5) % Plt Count 87 L D (150-450) k/uL Neutrophils % 64 % Lymphocytes % 29 % Monocytes % 4 % Eosinophils % 1 % Basophils % 0 % Neutrophils # 2.7 (1.3-7.7) k/uL Lymphocytes # 1.2 (1.0-4.8) k/uL Monocytes # 0.2 (0-1.0) k/uL Eosinophils # 0.1 (0-0.7) k/uL Basophils # 0.0 (0-0.2) k/uL Sodium 142 (137-145) mmol/L Potassium 3.8 (3.5-5.1) mmol/L Chloride 100 (98-107) mmol/L Carbon Dioxide 22 (22-30) mmol/L Anion Gap 20 mmol/L BUN 26 H (9-20) mg/dL Creatinine 0.70 (0.66-1.25) mg/dL Est GFR (CKD-EPI)AfAm >90 (>60 ml/min/1.73 sqM) Est GFR (CKD-EPI)NonAf >90 (>60 ml/min/1.73 sqM) Glucose 193 H (74-99) mg/dL Calcium 8.2 L (8.4-10.2) mg/dL Magnesium 1.8 (1.6-2.3) mg/dL Total Bilirubin 1.0 (0.2-1.3) mg/dL AST 189 H (17-59) U/L ALT 133 H (21-72) U/L Alkaline Phosphatase 67 (38-126) U/L Ammonia (<30) umol/L Total Creatine Kinase 364 H (55-170) U/L CK-MB (CK-2) 1.3 (0.0-2.4) ng/mL CK-MB (CK-2) Rel Index 0.4 Total Protein 5.7 L (6.3-8.2) g/dL Albumin 3.8 (3.5-5.0) g/dL Amylase 45 (30-110) U/L Lipase 337 H (23-300) U/L Serum Alcohol 236 mg/dL 08/20/17 Range/Units 23:58 WBC (3.8-10.6) k/uL RBC (4.30-5.90) m/uL Hgb (13.0-17.5) gm/dL Hct (39.0-53.0) % MCV (80.0-100.0) fL MCH (25.0-35.0) pg MCHC (31.0-37.0) g/dL RDW (11.5-15.5) % Plt Count (150-450) k/uL Neutrophils % % Lymphocytes % % Monocytes % % Eosinophils % % Basophils % % Neutrophils # (1.3-7.7) k/uL Lymphocytes # (1.0-4.8) k/uL Monocytes # (0-1.0) k/uL Eosinophils # (0-0.7) k/uL Basophils # (0-0.2) k/uL Sodium (137-145) mmol/L Potassium (3.5-5.1) mmol/L Chloride (98-107) mmol/L Carbon Dioxide (22-30) mmol/L Anion Gap mmol/L BUN (9-20) mg/dL Creatinine (0.66-1.25) mg/dL Est GFR (CKD-EPI)AfAm (>60 ml/min/1.73 sqM) Est GFR (CKD-EPI)NonAf (>60 ml/min/1.73 sqM) Glucose (74-99) mg/dL Calcium (8.4-10.2) mg/dL Magnesium (1.6-2.3) mg/dL Total Bilirubin (0.2-1.3) mg/dL AST (17-59) U/L ALT (21-72) U/L Alkaline Phosphatase (38-126) U/L Ammonia <9 (<30) umol/L Total Creatine Kinase (55-170) U/L CK-MB (CK-2) (0.0-2.4) ng/mL CK-MB (CK-2) Rel Index Total Protein (6.3-8.2) g/dL Albumin (3.5-5.0) g/dL Amylase (30-110) U/L Lipase (23-300) U/L Serum Alcohol mg/dL - EKG Data -: EKG Interpreted by Sc EKG shows normal: sinus rhythm, axis, intervals, QRS complexes (Sinus tachycardia rate 118 ID interval 128 QRS duration 70 QT since QTC at 272/31 nonspecific T-wave configuration.) Disposition Clinical Impression: Alcohol withdrawal delirium, Acute pancreatitis, Alcohol dependence, Dehydration, Alcoholic intoxication Disposition: ADMITTED IP TO THIS [facility] Condition: Stable Referrals: Josiah Nichols MD [Primary Care Provider] - 1-2 days
[2017-08-20 22:32] LABS: Basophils % (A) 0 %; Eosinophils # (A) 0.1 k/uL (0-0.7); Eosinophils % (A) 1 %; HCT 43.6 % (39.0-53.0); HGB 14.7 gm/dL (13.0-17.5); Lymphocytes # (A) 1.2 k/uL (1.0-4.8); Lymphocytes % (A) 29 %; MCH 29.2 pg (25.0-35.0); MCHC 33.8 g/dL (31.0-37.0); MCV 86.6 fL (80.0-100.0); Mean Platelet Volume 7.7; Monocytes # (A) 0.2 k/uL (0-1.0); Monocytes % (A) 4 %; Neutrophils # (A) 2.7 k/uL (1.3-7.7); Neutrophils % (A) 64 %; RBC 5.04 m/uL (4.30-5.90); RDW 12.8 % (11.5-15.5); WBC 4.3 k/uL (3.8-10.6)
[2017-08-20] MEDS ORDERED: LORazepam 2 MG/ML INJ IV STA (22:40)
[2017-08-20 22:44] LABS: ALT 133 U/L (21-72); AST 189 U/L (17-59); Albumin 3.8 g/dL (3.5-5.0); Alkaline Phosphatase 67 U/L (38-126); Amylase 45 U/L (30-110); Anion Gap 20 mmol/L; Blood Urea Nitrogen 26 mg/dL (9-20); Calcium 8.2 mg/dL (8.4-10.2); Carbon Dioxide 22 mmol/L (22-30); Chloride 100 mmol/L (98-107); Glucose 193 mg/dL (74-99); Lipase 337 U/L (23-300); Magnesium 1.8 mg/dL (1.6-2.3); Potassium 3.8 mmol/L (3.5-5.1); Sodium 142 mmol/L (137-145); Total Protein 5.7 g/dL (6.3-8.2)
[2017-08-20 22:46] LABS: Alcohol 236 mg/dL
[2017-08-20 22:54] LABS: Platelet Count 87 k/uL (150-450)
[2017-08-20 22:59] LABS: Creatine Kinase MB 1.3 ng/mL (0.0-2.4)
[2017-08-20] MEDS ORDERED: SODIUM CHLORIDE 0.9% 1,000 ML IV STA (23:29)
[2017-08-21] MEDS ORDERED: LORazepam 2 MG/ML INJ IV STA (01:12)
[2017-08-21] MEDS ORDERED: NALOXONE 0.4 MG/ML 1 ML VIAL IV PRN ×2 (01:55→06:41)
[2017-08-21] MEDS ORDERED: LORazepam 2 MG/ML INJ IV PRN (01:57)
[2017-08-21] MEDS ORDERED: THIAMINE 100 MG/ML 2 ML VIAL IM STA (01:57)
[2017-08-21 03:53] VITALS: BMI 22.8
[2017-08-21] MEDS: SODIUM CHLORIDE 0.9% 1,000 ML IV SCH ×3 (04:45→19:05)
[2017-08-21] MEDS: LORazepam 2 MG/ML INJ IV PRN ×5 (04:46→19:06)
--- NOTE | 2017-08-21 06:40 | P.HPIM ---
History of Present Illness H&P Date: 08/21/17 Chief Complaint: Alcohol withdrawals This is a 37-year-old male with past medical history of alcohol withdrawals and heavy drinking was admitted to the hospital for alcohol withdrawals the patient states that he drinks at least ongoing of vodka a day and has been trying to stop to begin to be shaky tierd and begin to be tachycardic Is not complaining of chest pain or shortness of breath at this time but he states he is weak all over did have history of seizures with withdrawals in the past Review of systems and systems as reviewed all negative and positive findings as per HPI Past Medical History: No Reported History Additional Past Medical History / Comment(s): Episode of acute pancreatitis requiring admission 2017, depression History of Any Multi-Drug Resistant Organisms: None Reported Past Surgical History: Tonsillectomy Past Anesthesia/Blood Transfusion Reactions: No Reported Reaction Past Psychological History: Depression Smoking Status: Current every day smoker Past Alcohol Use History: Abuse, Daily Past Drug Use History: None Reported - Past Family History Father Additional Family Medical History / Comment(s): Father is alive at age 57 with no major medical problems. Mother is alive at age of 56 with no major medical problems. Patient has 1 sister with no known medical problems. Patient does not have any children. Mother Family Medical History: No Reported History Additional Family Medical History / Comment(s): Mother is healthy and 56 yrs old. Constitutional: No acute distress, Eyes: Anicteric sclerae, moist conjunctiva, no lid-lag PERRLA ENMT: Cranial nerves grossly intact Neck: Supple, FROM, no masses, or JVD No carotid bruits No thyromegaly Lungs: Clear to auscultation Clear to percussion Normal respiratory effort, no accessory muscle use Cardiovascular: Heart regular in rate and rhythm, No murmurs, gallops, or rubs No peripheral edema Abdominal: Soft Nontender, no guarding, rebound or rigidity Abdomen moving with respiration Normoactive bowel sounds No hepatomegaly, No splenomegaly No palpable mass No abdominal wall hernia noted Skin: Normal temperature, tone, texture, turgor No induration No subcutaneous nodules No rash, lesions No ulcers Extremities: No digital cyanosis No clubbing Pedal pulses intact and symmetrical Radial pulses intact and symmetrical Normal gait and station No calf tenderness Psychiatric:Alert and oriented to person, place and time Appropriate affect Intact judgement Neuro: No obvious weakness Laboratory Results - last 24 hr 08/20/17 08/20/17 08/20/17 22:05 22:05 22:05 WBC 4.3 RBC 5.04 Hgb 14.7 Hct 43.6 MCV 86.6 MCH 29.2 MCHC 33.8 RDW 12.8 Plt Count 87 L D Neutrophils % 64 Lymphocytes % 29 Monocytes % 4 Eosinophils % 1 Basophils % 0 Neutrophils # 2.7 Lymphocytes # 1.2 Monocytes # 0.2 Eosinophils # 0.1 Basophils # 0.0 Sodium 142 Potassium 3.8 Chloride 100 Carbon Dioxide 22 Anion Gap 20 BUN 26 H Creatinine 0.70 Est GFR (CKD-EPI)AfAm >90 Est GFR (CKD-EPI)NonAf >90 Glucose 193 H Calcium 8.2 L Magnesium 1.8 Total Bilirubin 1.0 AST 189 H ALT 133 H Alkaline Phosphatase 67 Ammonia Total Creatine Kinase 364 H CK-MB (CK-2) 1.3 CK-MB (CK-2) Rel Index 0.4 Total Protein 5.7 L Albumin 3.8 Amylase 45 Lipase 337 H Serum Alcohol 236 08/20/17 23:58 WBC RBC Hgb Hct MCV MCH MCHC RDW Plt Count Neutrophils % Lymphocytes % Monocytes % Eosinophils % Basophils % Neutrophils # Lymphocytes # Monocytes # Eosinophils # Basophils # Sodium Potassium Chloride Carbon Dioxide Anion Gap BUN Creatinine Est GFR (CKD-EPI)AfAm Est GFR (CKD-EPI)NonAf Glucose Calcium Magnesium Total Bilirubin AST ALT Alkaline Phosphatase Ammonia <9 Total Creatine Kinase CK-MB (CK-2) CK-MB (CK-2) Rel Index Total Protein Albumin Amylase Lipase Serum Alcohol Vital Signs Temp Pulse Resp BP Pulse Ox 98.6 F 123 H 18 137/67 97 08/20/17 21:59 08/20/17 21:59 08/20/17 21:59 08/20/17 21:59 08/20/17 21:59 Assessment and plan Alcohol withdrawals continue patient on ciwa protocol History of seizures with withdrawals in the past will monitor History of pancreatitis DVT and GI prophylaxis avoid heparin or Lovenox due to thrombocytopenia Past Medical History Past Medical History: No Reported History Additional Past Medical History / Comment(s): ETOH, Episode of acute pancreatitis requiring admission 2017, depression History of Any Multi-Drug Resistant Organisms: None Reported Past Surgical History: Tonsillectomy Past Anesthesia/Blood Transfusion Reactions: No Reported Reaction Past Psychological History: Depression Additional Psychological History / Comment(s): Pt resides with his father. He is independent. He states he can drive. Pt has been in [place] multiple times. Smoking Status: Current every day smoker Past Alcohol Use History: Abuse, Daily Additional Past Alcohol Use History / Comment(s): Patient is a smoker 1.5 packs of cigarettes per day since age 21. Patient drinks a 1 gallon of vodka per day on and off for many years. 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 Mother is alive at age of 56 with no major medical problems. Patient has 1 sister with no known medical problems. Patient does not have any children. Mother Family Medical History: No Reported History Additional Family Medical History / Comment(s): Mother is healthy and 56 yrs old. Medications and Allergies Home Medications Medication Instructions Recorded Confirmed Type Multivitamins, Thera [Multivitamin 1 each PO DAILY@1200 tab 07/07/17 08/21/17 Rx (formulary)] traZODone HCL [Desyrel] 50 mg PO HS #14 tab 07/07/17 08/21/17 Rx Diazepam [Valium] 10 mg PO TID PRN 08/20/17 08/21/17 History Allergies Allergy/AdvReac Type Severity Reaction Status Date / Time No Known Allergies Allergy Verified 08/20/17 22:53 Physical Exam Vitals: Vital Signs Temp Pulse Pulse Resp BP BP Pulse Ox 08/21/17 03:39 98 F 102 H 17 130/61 95 08/21/17 03:00 102 H 16 125/53 95 08/21/17 02:00 106 H 16 123/56 96 08/21/17 01:39 106 H 14 94 L 08/21/17 01:10 122 H 16 131/56 95 08/21/17 00:52 99 F 130 H 20 125/58 97 08/20/17 23:56 120 H 16 08/20/17 23:18 120 H 16 102/57 98 08/20/17 23:03 120 H 20 102/57 97 08/20/17 21:59 98.6 F 123 H 18 137/67 97 Intake and Output 08/20/17 08/20/17 08/21/17 14:59 22:59 06:59 Intake Total 200 Balance 200 Intake: Oral 200 Other: Voiding Method Urinal # Voids 1 Weight 70.307 kg 70.307 kg Results CBC & Chem 7: 08/20/17 22:05 08/20/17 22:05 Labs: Abnormal Lab Results - Last 24 Hours (Table) 08/20/17 08/20/17 08/20/17 Range/Units 22:05 22:05 22:05 Plt Count 87 L D (150-450) k/uL BUN 26 H (9-20) mg/dL Glucose 193 H (74-99) mg/dL Calcium 8.2 L (8.4-10.2) mg/dL AST 189 H (17-59) U/L ALT 133 H (21-72) U/L Total Creatine Kinase 364 H (55-170) U/L Total Protein 5.7 L (6.3-8.2) g/dL Lipase 337 H (23-300) U/L Thrombosis Risk Factor Assmnt - Choose All That Apply Any of the Below Risk Factors Present?: Yes Other Risk Factors: Yes Each Risk Factor Represents 2 Points: Patient confined to bed Other congenital or acquired thrombophilia - If yes, enter type in comment: No Thrombosis Risk Factor Assessment Total Risk Factor Score: 2 Thrombosis Risk Factor Assessment Level: Low Risk
[2017-08-21] MEDS ORDERED: ONDANSETRON 4 MG/2 ML VIAL IVP PRN (06:41)
[2017-08-21] MEDS: THIAMINE 100 MG TAB PO SCH ×2 (12:15→16:00)
--- NOTE | 2017-08-21 17:07 | P.PN ---
Progress Note - Text Progress Note Date: 08/21/17 Patient is here for alcohol withdrawal, currently stable and improving his symptoms of withdrawal is improving, will advance his diet as tolerated
[2017-08-22] MEDS: SODIUM CHLORIDE 0.9% 1,000 ML IV SCH ×3 (05:52→22:59)
[2017-08-22] MEDS: LORazepam 2 MG/ML INJ IV PRN ×4 (11:02→21:48)
[2017-08-22] MEDS: THIAMINE 100 MG TAB PO SCH ×2 (11:02→16:37)
--- NOTE | 2017-08-22 13:40 | P.PN ---
Subjective Progress Note Date: 08/22/17 Principal diagnosis: ETOH withdrawal Patient had some nausea this am, he is still feeling weak. No cp or sob. Objective - Vital Signs Vital signs: Vital Signs Temp 97.5 F L 08/22/17 07:50 Pulse 84 08/22/17 10:08 Resp 16 08/22/17 10:08 BP 109/68 08/22/17 07:50 Pulse Ox 97 08/22/17 07:50 Intake & Output 08/21/17 08/22/17 08/22/17 18:59 06:59 18:59 Intake Total 3249 1190 800 Balance 3249 1190 800 Weight 70.307 kg Intake: Intake, IV Titration 1999 Amount Sodium Chloride 0.9% 1, 600 000 ml @ 100 mls/hr IV . Q10H JIGNESH Rx#:[id number] Sodium Chloride 0.9% 1, 400 000 ml @ 100 mls/hr IV . Q10H7M ONE with Mvi, Adult No.4 with Vit K 10 ml with Thiamine 100 mg with Folic Acid 1 mg Rx#: [id number] Sodium Chloride 0.9% 1, 999 000 ml @ 999 mls/hr IV . Q1H1M STA Rx#:[id number] Oral 1250 1190 800 Other: Voiding Method Toilet Toilet Toilet # Voids 5 1 - Exam Constitutional: No acute distress, conversant, pleasant Eyes:Anicteric sclerae, moist conjunctiva, no lid-lag, PERRLA, ENMT: Oropharynx clear, no erythema, exudates Neck: Supple, FROM, no masses, or JVD, No carotid bruits, No thyromegaly Lungs: Clear to auscultation, Clear to percussion, Normal respiratory effort, no accessory muscle use Cardiovascular: slightly tachy, regular, No murmurs, gallops, or rubs, No peripheral edema Abdominal: Soft, Nontender, no guarding, rebound or rigidity, Normoactive bowel sounds, No hepatomegaly, No splenomegaly, No palpable mass Skin: Normal temperature, tone, texture, turgor, no induration, No subcutaneous nodules, No rash, lesions, No ulcers Extremities: No digital cyanosis, No clubbing, Pedal pulses intact and symmetrical, Radial pulses intact and symmetrical, No calf tenderness Psychiatric: Alert and oriented to person, place and time, appropriate affect, intact judgement Neuro: Muscles Strength 5/5 in all 4 extremities, Sensation to light touch grossly present throughout, Cranial nerves II-XII grossly intact, no focal sensory deficits - Labs CBC & Chem 7: 08/20/17 22:05 08/20/17 22:05 Assessment and Plan Plan: -Alcohol withdrawals: Resolving Continue on ciwa protocol -History of seizures with withdrawals in the past: Currently no seizure Will monitor -History of pancreatitis Will recheck lipase now, was slightly elevated yesterday -History of thrombocytopenia: Likely sec to alcohol. -DVT prophylaxis Avoid heparin or Lovenox due to thrombocytopenia
[2017-08-22 14:02] LABS: HCT 38.1 % (39.0-53.0); HGB 13.4 gm/dL (13.0-17.5); MCH 30.4 pg (25.0-35.0); MCHC 35.3 g/dL (31.0-37.0); MCV 86.1 fL (80.0-100.0); Mean Platelet Volume 8.9; RBC 4.42 m/uL (4.30-5.90); RDW 12.5 % (11.5-15.5); WBC 2.7 k/uL (3.8-10.6)
[2017-08-22 14:07] LABS: ALT 244 U/L (21-72); AST 413 U/L (17-59); Alkaline Phosphatase 83 U/L (38-126); Amylase 49 U/L (30-110); Anion Gap 11 mmol/L; Blood Urea Nitrogen 13 mg/dL (9-20); Calcium 9.5 mg/dL (8.4-10.2); Carbon Dioxide 28 mmol/L (22-30); Chloride 99 mmol/L (98-107); Glucose 164 mg/dL (74-99); Lipase 352 U/L (23-300); Magnesium 1.5 mg/dL (1.6-2.3); Phosphorus 3.9 mg/dL (2.5-4.5); Potassium 4.1 mmol/L (3.5-5.1); Sodium 138 mmol/L (137-145); Total Bilirubin 1.3 mg/dL (0.2-1.3); Total Protein 5.9 g/dL (6.3-8.2)
[2017-08-22 14:57] LABS: Platelet Count 55 k/uL (150-450)
[2017-08-22] MEDS: NICOTINE 21MG/24HR PATCH TRANSDERM SCH (22:31)
[2017-08-23] MEDS: LORazepam 2 MG/ML INJ IV PRN ×6 (02:07→22:51)
[2017-08-23] MEDS: THIAMINE 100 MG TAB PO SCH ×2 (08:03→17:04)
[2017-08-23] MEDS: SODIUM CHLORIDE 0.9% 1,000 ML IV SCH ×2 (08:03→19:06)
[2017-08-23] MEDS: MAGNESIUM SULFATE-D5W PMX 1 GM in DEXTROSE/WATER 1 100ML.BAG IVPB SCH ×2 (14:02→15:34)
--- NOTE | 2017-08-23 15:23 | P.PN ---
Subjective Progress Note Date: 08/23/17 Principal diagnosis: ETOH withdrawal Still having withdrawal symptoms, receiving Ativan when necessary. Objective - Vital Signs Vital signs: Vital Signs Temp 97.4 F L 08/23/17 05:25 Pulse 86 08/23/17 05:25 Resp 14 08/23/17 05:25 BP 129/89 08/23/17 05:25 Pulse Ox 96 08/23/17 05:25 Intake & Output 08/22/17 08/23/17 08/23/17 18:59 06:59 18:59 Intake Total 1700 500 800 Balance 1700 500 800 Weight 70.307 kg Intake: Intake, IV Titration 500 500 800 Amount Sodium Chloride 0.9% 1, 500 500 800 000 ml @ 100 mls/hr IV . Q10H [facility] Rx#:[id number] Oral 1200 Other: Voiding Method Toilet Toilet Toilet # Voids 1 1 1 - Exam Constitutional: No acute distress, conversant, pleasant Eyes:Anicteric sclerae, moist conjunctiva, no lid-lag, PERRLA, ENMT: Oropharynx clear, no erythema, exudates Neck: Supple, FROM, no masses, or JVD, No carotid bruits, No thyromegaly Lungs: Clear to auscultation, Clear to percussion, Normal respiratory effort, no accessory muscle use Cardiovascular: slightly tachy, regular, No murmurs, gallops, or rubs, No peripheral edema Abdominal: Soft, Nontender, no guarding, rebound or rigidity, Normoactive bowel sounds, No hepatomegaly, No splenomegaly, No palpable mass Skin: Normal temperature, tone, texture, turgor, no induration, No subcutaneous nodules, No rash, lesions, No ulcers Extremities: No digital cyanosis, No clubbing, Pedal pulses intact and symmetrical, Radial pulses intact and symmetrical, No calf tenderness Psychiatric: Alert and oriented to person, place and time, appropriate affect, intact judgement Neuro: Muscles Strength 5/5 in all 4 extremities, Sensation to light touch grossly present throughout, Cranial nerves II-XII grossly intact, no focal sensory deficits - Labs CBC & Chem 7: 08/22/17 13:50 08/22/17 13:50 Assessment and Plan Plan: -Alcohol withdrawals: Resolving Continue on ciwa protocol Advised to quit -History of seizures with withdrawals in the past: Currently no seizure Will monitor -History of pancreatitis Lipase slightly up, does not meet criteria for pancreatitis -History of thrombocytopenia: Likely sec to alcohol. -DVT prophylaxis Avoid heparin or Lovenox due to thrombocytopenia
[2017-08-23] MEDS: NICOTINE 21MG/24HR PATCH TRANSDERM SCH (20:30)
[2017-08-24] MEDS: LORazepam 2 MG/ML INJ IV PRN (02:34)
[2017-08-24 06:20] VITALS: BP 126/59; PULSE 89; RESP 16; TEMP 97.9
[2017-08-24] MEDS: SODIUM CHLORIDE 0.9% 1,000 ML IV SCH (07:34)
[2017-08-24] MEDS: THIAMINE 100 MG TAB PO SCH (07:34)
--- NOTE | 2017-08-24 12:09 | P.DS ---
Providers Date of admission: 08/21/17 01:58 Expected date of discharge: 08/24/17 Attending physician: Hoa Dominguez MD Primary care physician: [facility] Course: This is a 37-year-old male with a history of alcoholism presented to the ER with complaints of feeling shaky and generally weak as well as having hallucinations. Apparently he did not eat many solid food for several days prior to admission. Upon admission he denied any suicidal thoughts or ideations. He did not have any nausea, no vomiting, fevers or chills. He does have a history of pancreatitis. He did withdraw from alcohol in the past. When EMS personnel arrived to his residence his heart rate was in the 160s, he was given a liter bolus and was taken to the ER where his HR went down to 130. In the emergency department he underwent extensive evaluation, he was shaky, was tachycardic as well. He wasn't having any significant abdominal or chest pain. No shortness of breath. The symptoms were mainly due to alcohol withdrawal. Laboratory findings were significant for leukopenia and thrombocytopenia likely chronic, secondary to alcohol abuse. LFTs were elevated as well. Ammonia was negative. Patient was started on alcohol withdrawal protocol with Ativan IV, he received multiple doses of Ativan for his symptoms. Today his alcohol withdrawal symptoms have almost subsided, he is currently eating and drinking well, tolerating oral intake. He is ambulatory and independent. When I talked to him about quitting alcohol he was willing to give it a try, I proposed naltrexone prescription for him and he agreed to try that. I will also prescribe him some Librium upon discharge. Discharge diagnoses: Chronic ETOH abuse Delirium tremens Patient Condition at Discharge: Stable Plan - Discharge Summary New Discharge Prescriptions: New Nicotine 21Mg/24Hr Patch [Habitrol] 1 patch TRANSDERM HS #14 patch Thiamine [Vitamin B-1] 100 mg PO BID@1200,1700 #90 tab Naltrexone HCl [Revia] 50 mg PO DAILY #30 tablet chlordiazePOXIDE HCl [Librium] 25 mg PO TID #30 capsule No Action Multivitamins, Thera [Multivitamin (formulary)] 1 each PO DAILY@1200 tab traZODone HCL [Desyrel] 50 mg PO HS #14 tab Diazepam [Valium] 10 mg PO TID PRN PRN Reason: Anxiety Discharge Medication List Multivitamins, Thera [Multivitamin (formulary)] 1 each PO DAILY@1200 tab [Rx] traZODone HCL [Desyrel] 50 mg PO HS #14 tab 07/07/17 [Rx] Diazepam [Valium] 10 mg PO TID PRN 08/20/17 [History] Naltrexone HCl [Revia] 50 mg PO DAILY #30 tablet 08/24/17 [Rx] Nicotine 21Mg/24Hr Patch [Habitrol] 1 patch TRANSDERM HS #14 patch 08/24/17 [Rx] Thiamine [Vitamin B-1] 100 mg PO BID@1200,1700 #90 tab 08/24/17 [Rx] chlordiazePOXIDE HCl [Librium] 25 mg PO TID #30 capsule 08/24/17 [Rx] Follow up Appointment(s)/Referral(s): Josiah Nichols MD [Primary Care Provider] - 1-2 days (Patient to call Dr. Nichols's office Friday morning to schedule follow up appointment. The office is closed at time of discharge. ) Patient Instructions/Handouts: Chlordiazepoxide (By mouth), Thiamine (By mouth) , Nicotine (Absorbed through the skin), Naltrexone (By mouth), Dehydration (DC) , Alcohol Intoxication (DC)
== END 2017-08-24 12:25 | disposition home or self-care (01) | DRG 897 ==
LOC: EC 21:51 → 5MS5E 08-21 01:58
PROVIDERS: ADMIT Internal Medicine; ATTEND Internal Medicine
DX: F10.231 Alcohol dependence with withdrawal delirium (principal); D69.59 Other secondary thrombocytopenia; F32.9 Major depressive disorder, single episode, unspecified; E86.0 Dehydration; D72.818 Other decreased white blood cell count; F17.210 Nicotine dependence, cigarettes, uncomplicated; Z71.6 Tobacco abuse counseling; Z79.899 Other long term (current) drug therapy; Z86.59 Personal history of other mental and behavioral disorders; Z87.19 Personal history of other diseases of the digestive system; Z86.69 Personal history of other diseases of the nervous system and sense organs
CPT/HCPCS: 36415; 80053; 80320; 82140; 82150; 82550; 82553; 83690; 83735; 84100; 84484; 85025; 85027; 93005; 96365; 96366; 96372; 96375; 96376; 99285

== ENCOUNTER 2017-09-10 05:36 | Inpatient (IN) | payer BC, OTHER ==
[2017-09-10] MEDS ORDERED: LORazepam 2 MG/ML INJ IV STA ×2 (05:43→08:16)
[2017-09-10] MEDS ORDERED: THIAMINE 100 MG/ML 2 ML VIAL IM STA ×2 (05:52→08:19)
[2017-09-10] MEDS ORDERED: FOLIC ACID 1 MG TAB PO STA (05:52)
[2017-09-10] MEDS ORDERED: SODIUM CHLORIDE 0.9% 1,000 ML IV STA (05:52)
[2017-09-10 06:21] LABS: HCT 42.5 % (39.0-53.0); HGB 14.8 gm/dL (13.0-17.5); Hypochromasia Slight; MCH 30.3 pg (25.0-35.0); MCHC 34.8 g/dL (31.0-37.0); Mean Platelet Volume 14.1; Poikilocytosis Moderate; RBC 4.88 m/uL (4.30-5.90); RDW 14.9 % (11.5-15.5); WBC 6.4 k/uL (3.8-10.6)
[2017-09-10 06:24] LABS: Platelet Count 133 k/uL (150-450)
[2017-09-10 06:53] LABS: Band Neutrophils % 11 %; Eosinophils # (M) 0.06 k/uL (0-0.7); Monocytes # (M) 0.32 k/uL (0-1.0); Neutrophils % (M) 69 %; Nucleated Red Blood Cells 0 /100 WBC (0-0); Total Cells Counted 100
--- NOTE | 2017-09-10 07:01 | ED ---
Alcohol HPI - General Chief Complaint: Alcohol Stated Complaint: ETOH, Fall Time Seen by Provider: 09/10/17 05:42 Source: EMS Mode of arrival: EMS Limitations: no limitations - History of Present Illness Initial Comments: 37 years old male does drink quite heavily every day she was walking inside his house and she fell face first is complaining about the facial pain and pain over the nose he also has bruising under his both eyes he doesn't know when he fell exactly complaining about the headache any neck pain he does drink daily but he hasn't had any drink for about 24 hours. I denies any chest pain or shortness of breath no abdominal pain no frequency urgency dysuria no symptoms of TIA or CVA - Related Data Home Medications Medication Instructions Recorded Confirmed Diazepam [Valium] 10 mg PO TID PRN 08/20/17 09/10/17 Previous Rx's Medication Instructions Recorded traZODone HCL [Desyrel] 50 mg PO HS #14 tab 07/07/17 Naltrexone HCl [Revia] 50 mg PO DAILY #30 tablet 08/24/17 chlordiazePOXIDE HCl [Librium] 25 mg PO TID #30 capsule 08/24/17 Allergies Allergy/AdvReac Type Severity Reaction Status Date / Time No Known Allergies Allergy Verified 09/10/17 07:54 Review of Systems ROS Statement: Those systems with pertinent positive or pertinent negative responses have been documented in the HPI. ROS Other: All systems not noted in ROS Statement are negative. Past Medical History Past Medical History: No Reported History Additional Past Medical History / Comment(s): ETOH, Episode of acute pancreatitis requiring admission 2017, depression History of Any Multi-Drug Resistant Organisms: None Reported Past Surgical History: Tonsillectomy Past Anesthesia/Blood Transfusion Reactions: No Reported Reaction Past Psychological History: Depression Smoking Status: Current every day smoker Past Alcohol Use History: Abuse, Daily Past Drug Use History: Heroin - Past Family History Father Additional Family Medical History / Comment(s): Father is alive at age 57 with no major medical problems. Mother is alive at age of 56 with no major medical problems. Patient has 1 sister with no known medical problems. Patient does not have any children. Mother Family Medical History: No Reported History Additional Family Medical History / Comment(s): Mother is healthy and 56 yrs old. General Exam - General Exam Comments Initial Comments: General: The patient is awake and alert, in no distress, and does not appear acutely ill. GCS is 15 Skin: Skin is warm and dry and no rashes or lesions are noted. There is some bruising on the face, nose seems swollen him a no septal hematoma Eye: Pupils are equal, round and reactive to light, extra-ocular movements are intact; there is normal conjunctiva bilaterally. Ears, nose, mouth and throat: There are moist mucous membranes and no oral lesions. Neck: The neck is tender at C5 and C6 Cardiovascular: There is a regular rate and rhythm. No murmur, rub or gallop is appreciated. Noticed tachycardia Respiratory: To auscultation bilateral, no wheezing no rhonchi no distress respiratory nascimento noticed decreased breath sounds Gastrointestinal: Soft, non-distended, non-tender abdomen without masses or organomegaly noted. There is no rebound or guarding present. Bowel sounds are unremarkable. Back: There is no tenderness to palpation in the midline. There is no obvious deformity. Musculoskeletal: Normal ROM, no tenderness, There is no pedal edema. There is no calf tenderness or swelling. No cords were appreciated. Neurological: CN II-XII intact, Cranial nerves III through XII are intact. There are no obvious motor or sensory deficits. Coordination appears grossly intact. Speech is normal. Psychiatric: Cooperative, appropriate mood & affect, normal judgment. Limitations: no limitations Course Vital Signs 09/10/17 09/10/17 09/10/17 05:37 06:02 07:06 Temperature 98.8 F Pulse Rate 119 H 133 H 95 Respiratory 18 18 18 Rate Blood Pressure 128/75 132/74 133/72 O2 Sat by Pulse 94 L 97 99 Oximetry Medical Decision Making - Lab Data Result diagrams: 09/10/17 05:44 Lab Results 09/10/17 Range/Units 05:44 WBC 6.4 (3.8-10.6) k/uL RBC 4.88 (4.30-5.90) m/uL Hgb 14.8 (13.0-17.5) gm/dL Hct 42.5 (39.0-53.0) % MCV 87.0 (80.0-100.0) fL MCH 30.3 (25.0-35.0) pg MCHC 34.8 (31.0-37.0) g/dL RDW 14.9 (11.5-15.5) % Plt Count 133 L D (150-450) k/uL Neutrophils % (Manual) 69 % Band Neutrophils % 11 % Lymphocytes % (Manual) 14 % Monocytes % (Manual) 5 % Eosinophils % (Manual) 1 % Neutrophils # (Manual) 5.10 (1.3-7.7) k/uL Lymphocytes # (Manual) 0.90 L (1.0-4.8) k/uL Monocytes # (Manual) 0.32 (0-1.0) k/uL Eosinophils # (Manual) 0.06 (0-0.7) k/uL Nucleated RBCs 0 (0-0) /100 WBC Manual Slide Review Performed Hypochromasia Slight Poikilocytosis Moderate Critical Care Time Total Critical Care Time: 30 Critical Care Time: Patient came in with the tachycardia was quite dehydrated I he was resuscitated with fluids and he hasn't had any alcohol for about 24 hours he was heading towards the CT he was given 2 mg of Ativan IV that calmed things down now I have imaging reports available to me he had a nasal fracture and now is developing tachycardia again noticed some shakes considering that he be hospitalized under Dr. 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
--- NOTE | 2017-09-10 07:31 | CT ---
EXAM: CT Head Without Intravenous Contrast CLINICAL HISTORY: Fall. TECHNIQUE: Axial computed tomography images of the head/brain without intravenous contrast. CTDI is 60 mGy and DLP is 1100 mGy-cm. This CT exam was performed using one or more of the following dose reduction techniques: automated exposure control, adjustment of the mA and/or kV according to patient size, and/or use of iterative reconstruction technique. COMPARISON: No relevant prior studies available. FINDINGS: Brain: No acute intracranial hemorrhage. No mass effect or midline shift. Generalized wanting loss, advanced for patient's age. Ventricles: Unremarkable. No ventriculomegaly. Bones/joints: Unremarkable. No acute fracture. Soft tissues: Unremarkable. Sinuses: Unremarkable as visualized. No acute sinusitis. Mastoid air cells: Unremarkable as visualized. No mastoid effusion. IMPRESSION: No acute intracranial hemorrhage or skull fractures. Generalized involutional changes involving loss, advanced for patient's age. EXAM: CT Cervical Spine Without Intravenous Contrast CLINICAL HISTORY: Fall. TECHNIQUE: Axial computed tomography images of the cervical spine without intravenous contrast. CTDI is 20 mGy and DLP is 375 mGy-cm. This CT exam was performed using one or more of the following dose reduction techniques: automated exposure control, adjustment of the mA and/or kV according to patient size, and/or use of iterative reconstruction technique. COMPARISON: No relevant prior studies available. FINDINGS: Vertebrae: Unremarkable. No acute fracture. Discs/spinal canal/neural foramina: No acute findings. No spinal canal stenosis. Soft tissues: Unremarkable. Lung apices: Unremarkable as visualized. IMPRESSION: No acute fracture or prevertebral soft tissue swelling.
--- NOTE | 2017-09-10 07:36 | CT ---
EXAM: CT Maxillofacial Without Intravenous Contrast CLINICAL HISTORY: Fall. TECHNIQUE: Axial computed tomography images of the face without intravenous contrast. CTDI is 30 mGy and DLP is 400 mGy-cm. This CT exam was performed using one or more of the following dose reduction techniques: automated exposure control, adjustment of the mA and/or kV according to patient size, and/or use of iterative reconstruction technique. COMPARISON: None. FINDINGS: Bilateral nasal bone fractures with overlying soft tissue swelling. Facial and periorbital hematoma. No acute orbital fractures or hematoma or emphysema. Intact globes and lenses. The temporomandibular joints are well situated. Intact pterygoid plates. Incidental mild chronic sinus disease. Mastoid air cells are clear. IMPRESSION: Bilateral nasal bone fractures. No orbital fractures or hematoma or emphysema. Intact globes and lenses.
[2017-09-10] MEDS ORDERED: LORazepam 2 MG/ML INJ IV PRN ×2 (08:19)
[2017-09-10] MEDS ORDERED: NALOXONE 0.4 MG/ML 1 ML VIAL IV PRN (08:20)
[2017-09-10] MEDS ORDERED: ONDANSETRON 4 MG/2 ML VIAL IVP PRN (08:20)
[2017-09-10] MEDS ORDERED: PANTOPRAZOLE 40 MG/10 ML VIAL IV SCH (09:00)
[2017-09-10 09:44] VITALS: BMI 22.8
[2017-09-10] MEDS: DIAZEPAM 5 MG TAB PO PRN ×3 (09:48→21:22)
[2017-09-10] MEDS: MORPHINE SULFATE 2 MG/ML SYRINGE IV PRN ×4 (09:48→21:23)
[2017-09-10 11:00] LABS: INR 1.1 (<1.2); Prothrombin Time 10.3 sec (9.0-12.0)
[2017-09-10 11:07] LABS: ALT 149 U/L (21-72); AST 221 U/L (17-59); Alcohol 13 mg/dL; Alkaline Phosphatase 78 U/L (38-126); Anion Gap 11 mmol/L; Blood Urea Nitrogen 15 mg/dL (9-20); Calcium 8.7 mg/dL (8.4-10.2); Carbon Dioxide 30 mmol/L (22-30); Chloride 97 mmol/L (98-107); Glucose 92 mg/dL (74-99); Potassium 3.9 mmol/L (3.5-5.1); Sodium 138 mmol/L (137-145); Total Bilirubin 0.9 mg/dL (0.2-1.3); Total Protein 5.9 g/dL (6.3-8.2)
[2017-09-10 11:12] LABS: Amorphous Sediment,Urine Rare /hpf; Appearance,Urine Cloudy (Clear); Bilirubin,Urine Negative (Negative); Blood,Urine Negative (Negative); Color,Urine Yellow; Glucose,Urine (UA) Negative (Negative); Ketones,Urine Trace (Negative); Leukocyte Esterase,Urine Negative (Negative); Mucus,Urine Many /hpf; Nitrite,Urine Negative (Negative); PH, Urine 7.5 (5.0-8.0); Protein,Urine 1+ (Negative); Specific Gravity,Urine 1.024 (1.001-1.035); Squamous Epithelial Cell,Urine <1 /hpf (0-4); WBC,Urine 1 /hpf (0-5)
[2017-09-10 11:14] LABS: Amphetamine Screen,Urine Not Detected (NotDetected); Barbiturate Screen,Urine Not Detected (NotDetected); Benzodiazepines Screen,Urine Detected (NotDetected); Cocaine Screen,Urine Not Detected (NotDetected); Methadone Screen, Urine Not Detected (NotDetected); Opiate Screen,Urine Detected (NotDetected); Oxycodone Screen, Urine Not Detected (NotDetected); Phencyclidine Screen,Urine Not Detected (NotDetected); Tricyclic Antidepressant,Urine Not Detected (NotDetected); Urn Cannabinoid Scrn Not Detected (NotDetected)
[2017-09-10 14:56] VITALS: RESP 16
[2017-09-10] MEDS: SODIUM CHLORIDE 0.9% 1,000 ML IV SCH ×2 (15:01→23:36)
[2017-09-10] MEDS: THIAMINE 100 MG TAB PO SCH (16:04)
[2017-09-10] MEDS: NICOTINE 21MG/24HR PATCH TRANSDERM SCH (16:04)
--- NOTE | 2017-09-10 17:19 | P.HPIM ---
History of Present Illness 37 years old male does drink quite heavily every day she was walking inside his house and she fell face first is complaining about the facial pain and pain over the nose he also has bruising under his both eyes he doesn't know when he fell exactly complaining about the headache any neck pain he does drink daily, patient does drink heavily and daily basis. Patient does drink was yesterday afternoon. Patient alcohol level was 15 on admission. Patient is admitted for all call withdrawal patient is willing to quit alcohol. Patient is complaining of hallucinations although per and updated in detail history patient does not appear to have any symptoms of admission and so far patient is not having withdrawals but I am expecting to have withdrawals tonight considering his heavy alcohol history. Patient had a fall with facial bruising and does have nasal bone fracture on the imaging. Patient did not lose consciousness. Patient was comparing of epigastric abdominal discomfort and patient is on Protonix here. Review of Systems REVIEW OF SYSTEMS: CONSTITUTIONAL: As mentioned above HEENT: No recent visual problems or hearing problems. Denied any sore throat. CARDIOVASCULAR: No chest pain, orthopnea, PND, no palpitations, no syncope. PULMONARY: No shortness of breath, no cough, no hemoptysis. GASTROINTESTINAL: No diarrhea, no nausea, no vomiting, no abdominal pain. Normoactive bowel sounds. NEUROLOGICAL: No headaches, no weakness, no numbness. HEMATOLOGICAL: Denies any bleeding or petechiae. GENITOURINARY: Denies any burning micturition, frequency, or urgency. MUSCULOSKELETAL/RHEUMATOLOGICAL: Denies any joint pain, swelling, or any muscle pain. ENDOCRINE: Denies any polyuria or polydipsia. The rest of the 14-point review of systems is negative. Past Medical History Past Medical History: No Reported History Additional Past Medical History / Comment(s): ETOH, Episode of acute pancreatitis requiring admission 2017, depression History of Any Multi-Drug Resistant Organisms: None Reported Past Surgical History: Tonsillectomy Past Anesthesia/Blood Transfusion Reactions: No Reported Reaction Past Psychological History: Depression Additional Psychological History / Comment(s): Pt resides with his father. He is independent. He states he can drive. Pt has been in [place] multiple times. Smoking Status: Current every day smoker Past Alcohol Use History: Abuse, Daily Additional Past Alcohol Use History / Comment(s): Patient is a smoker 1.5 packs of cigarettes per day since age 21. Patient drinks a 1 gallon of vodka per day on and off for many years. 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 Mother is alive at age of 56 with no major medical problems. Patient has 1 sister with no known medical problems. Patient does not have any children. Mother Family Medical History: No Reported History Additional Family Medical History / Comment(s): Mother is healthy and 56 yrs old. Medications and Allergies Home Medications Medication Instructions Recorded Confirmed Type traZODone HCL [Desyrel] 50 mg PO HS #14 tab 07/07/17 09/10/17 Rx Diazepam [Valium] 10 mg PO TID PRN 08/20/17 09/10/17 History Naltrexone HCl [Revia] 50 mg PO DAILY #30 tablet 08/24/17 09/10/17 Rx chlordiazePOXIDE HCl [Librium] 25 mg PO TID #30 capsule 08/24/17 09/10/17 Rx Allergies Allergy/AdvReac Type Severity Reaction Status Date / Time No Known Allergies Allergy Verified 09/10/17 07:54 Physical Exam Vitals: Vital Signs Temp Pulse Pulse Resp BP BP Pulse Ox 09/10/17 15:34 16 09/10/17 14:56 98.6 F 101 H 16 128/82 95 09/10/17 10:26 18 09/10/17 09:00 98.2 F 104 H 18 124/69 99 09/10/17 08:51 98.0 F 88 16 122/64 96 09/10/17 07:06 95 18 133/72 99 09/10/17 06:02 133 H 18 132/74 97 09/10/17 05:37 98.8 F 119 H 18 128/75 94 L Intake and Output 09/10/17 09/10/17 09/10/17 06:59 14:59 22:59 Intake Total 720 Balance 720 Intake: Oral 720 Other: Voiding Method Toilet Toilet Urinal Urinal # Voids 1 Weight 70.307 kg 70.307 kg PHYSICAL EXAMINATION: GENERAL: The patient is alert and oriented x3, not in any acute distress. Well developed, well nourished. HEENT: Pupils are round and equally reacting to light. EOMI. No scleral icterus. No conjunctival pallor. Multiple bruises on the face including bruising around the eyes nose. No pharyngeal erythema. No thyromegaly. CARDIOVASCULAR: S1 and S2 present. No murmurs, rubs, or gallops. PULMONARY: Chest is clear to auscultation, no wheezing or crackles. ABDOMEN: Soft, nontender, nondistended, normoactive bowel sounds. No palpable organomegaly. MUSCULOSKELETAL: No joint swelling or deformity. EXTREMITIES: No cyanosis, clubbing, or pedal edema. NEUROLOGICAL: Gross neurological examination did not reveal any focal deficits. SKIN: No rashes. Results CBC & Chem 7: 09/10/17 05:44 09/10/17 10:34 Labs: Abnormal Lab Results - Last 24 Hours (Table) 09/10/17 09/10/17 09/10/17 Range/Units 05:44 10:34 10:50 Plt Count 133 L D (150-450) k/uL Lymphocytes # (Manual) 0.90 L (1.0-4.8) k/uL Chloride 97 L (98-107) mmol/L Creatinine 0.62 L (0.66-1.25) mg/dL AST 221 H (17-59) U/L ALT 149 H (21-72) U/L Total Protein 5.9 L (6.3-8.2) g/dL Urine Protein 1+ H (Negative) Urine Ketones Trace H (Negative) Amorphous Sediment Rare H (None) /hpf Urine Mucus Many H (None) /hpf Urine Opiates Screen Detected H (NotDetected) U Benzodiazepines Scrn Detected H (NotDetected) Thrombosis Risk Factor Assmnt - Choose All That Apply Any of the Below Risk Factors Present?: No Assessment and Plan Plan: - fall: Secondary to alcoholism patient had massive bone fracture, no further intervention symptomatically management -Alcohol abuse with concerns of alcohol withdrawal: Patient is on Ativan CIWA protocol. -Alcoholic gastritis: Patient is on Protonix as mentioned above -Nicotine abuse: Counseling was provided -Acute alcoholic hepatitis expected to improve with disc herniation of alcohol: Repeat liver enzymes tomorrow. -Tachycardia secondary to chronic alcoholism and possible starting stages of alcohol withdrawal
[2017-09-10] MEDS: LORazepam 2 MG/ML INJ IV PRN ×2 (20:28→23:36)
[2017-09-10] MEDS ORDERED: traZODone HCL 50 MG TAB PO SCH (21:00)
[2017-09-10 21:56] LABS: Hepatitis A Antibody IgM Non-Reactive (Non-Reactive); Hepatitis B Core IgM Non-Reactive (Non-Reactive)
[2017-09-11] MEDS ORDERED: LORazepam 2 MG/ML INJ ONE (03:20)
[2017-09-11] MEDS: LORazepam 2 MG/ML INJ IV PRN ×2 (06:51→10:13)
[2017-09-11] MEDS ORDERED: PANTOPRAZOLE 40 MG TABLET PO SCH (07:30)
[2017-09-11 09:02] LABS: HCT 42.4 % (39.0-53.0); HGB 14.6 gm/dL (13.0-17.5); MCH 30.7 pg (25.0-35.0); MCHC 34.4 g/dL (31.0-37.0); MCV 89.4 fL (80.0-100.0); Mean Platelet Volume 7.2; RBC 4.74 m/uL (4.30-5.90); RDW 14.4 % (11.5-15.5); WBC 3.3 k/uL (3.8-10.6)
[2017-09-11 09:30] LABS: ALT 147 U/L (21-72); AST 170 U/L (17-59); Albumin 4.2 g/dL (3.5-5.0); Alkaline Phosphatase 75 U/L (38-126); Anion Gap 10 mmol/L; Blood Urea Nitrogen 8 mg/dL (9-20); Calcium 9.3 mg/dL (8.4-10.2); Carbon Dioxide 28 mmol/L (22-30); Chloride 99 mmol/L (98-107); Glucose 85 mg/dL (74-99); Potassium 4.1 mmol/L (3.5-5.1); Sodium 137 mmol/L (137-145); Total Bilirubin 1.3 mg/dL (0.2-1.3); Total Protein 6.2 g/dL (6.3-8.2)
[2017-09-11] MEDS: NICOTINE 21MG/24HR PATCH TRANSDERM SCH (10:07)
[2017-09-11] MEDS ORDERED: MORPHINE ORAL SOLN 10 MG/5 ML CUP PO PRN (10:08)
[2017-09-11] MEDS: SODIUM CHLORIDE 0.9% 1,000 ML IV SCH (10:09)
[2017-09-11] MEDS: THIAMINE 100 MG TAB PO SCH ×2 (10:09→16:40)
[2017-09-11 10:28] LABS: Platelet Count 63 k/uL (150-450)
--- NOTE | 2017-09-11 14:56 | XR ---
Right knee HISTORY: Trauma and pain, erythema 3 views of the right knee Bone mineralization, joint spaces and alignment are maintained. No radiopaque foreign body evident. IMPRESSION: No fracture or dislocation.
[2017-09-11 15:21] VITALS: BP 125/82; PULSE 85; TEMP 98.6
--- NOTE | 2017-09-11 16:05 | P.DS ---
Providers Date of admission: 09/11/17 15:18 Expected date of discharge: 09/11/17 Attending physician: Mili Benton Consults: 09/10/17 08:20 Consult Physician Stat Consulting Provider: Alex Luis Consult Reason/Comments: Nasal fracture Do you want consulting provider notified?: Yes Primary care physician: [facility] Course: Final Diagnoses: - fall: Secondary to alcoholism patient had massive bone fracture, no further intervention symptomatically management -Alcohol abuse with concerns of alcohol withdrawal, maintained on CIWA protocol -Alcoholic gastritis -Nicotine abuse: Counseling was provided -Acute alcoholic hepatitis expected to improve with discontinuation of alcohol: Repeat liver enzymes tomorrow. -Tachycardia secondary to chronic alcoholism and possible starting stages of alcohol withdrawal, resolved Hospital course: This is a 37 year old male drinks quite heavily every day, fell face first inside his house without losing consciousness.Alcohol level was 15 on admission. Complained about the facial pain and pain over the nose he also has bruising under his both eyes. Facial CT reported bilateral nasal bone fractures soft tissue swelling,facial and. periorbital hematoma, no orbital fractures or hematoma or emphysema, intact globes and lenses. head and C-spine CT reported no acute intracranial hemorrhage or skull fractures, or prevertebral soft tissue swelling. Patient had a fall with facial bruising and does have nasal bone fracture on the imaging. Patient did not lose consciousness. Maintained on IV fluid hydration,CIWA protocol. Significant clinical improvement. ENT consulted. Patient will be discharged home in a stable condition with guarded prognosis once cleared by ENT. Physical exam: GENERAL: The patient is sitting up in bed, alert and oriented x3 , not in any acute distress. Well developed, well nourished. HEENT: Pupils are round and equally reacting to light. EOMI. No scleral icterus. No conjunctival pallor. Multiple bruises on the face including bruising around the eyes nose. No pharyngeal erythema. No thyromegaly. CARDIOVASCULAR: S1 and S2 present. No murmurs, rubs, or gallops. PULMONARY: Chest is clear to auscultation, no wheezing or crackles. ABDOMEN: Soft, nontender, nondistended, normoactive bowel sounds. No palpable organomegaly. EXTREMITIES: No cyanosis, clubbing, or pedal edema. NEUROLOGICAL: Gross neurological examination did not reveal any focal deficits. The impression and plan of care has been dictated as directed. : I performed a history and examination of this patient, discussed the same with the dictator. I agree with the dictator's note ,documented as a scribe. Any additional findings or plans will be noted. Time taken: 35 minutes Patient Condition at Discharge: Stable Plan - Discharge Summary Discharge Rx Participant: No New Discharge Prescriptions: New Folic Acid 1 mg PO DAILY #30 tablet Multivitamins, Thera [Multivitamin (formulary)] 1 tab PO DAILY #30 tablet Nicotine 21Mg/24Hr Patch [Habitrol] 1 patch TRANSDERM DAILY #30 patch Omeprazole [PriLOSEC] 20 mg PO AC-BID #60 cap Thiamine [Vitamin B-1] 100 mg PO DAILY #30 tab Continue traZODone HCL [Desyrel] 50 mg PO HS #14 tab Diazepam [Valium] 10 mg PO TID PRN PRN Reason: Anxiety Naltrexone HCl [Revia] 50 mg PO DAILY #30 tablet chlordiazePOXIDE HCl [Librium] 25 mg PO TID #30 capsule Discharge Medication List traZODone HCL [Desyrel] 50 mg PO HS #14 tab 07/07/17 [Rx] Diazepam [Valium] 10 mg PO TID PRN 08/20/17 [History] Naltrexone HCl [Revia] 50 mg PO DAILY #30 tablet 08/24/17 [Rx] chlordiazePOXIDE HCl [Librium] 25 mg PO TID #30 capsule 08/24/17 [Rx] Folic Acid 1 mg PO DAILY #30 tablet 09/11/17 [Rx] Multivitamins, Thera [Multivitamin (formulary)] 1 tab PO DAILY #30 tablet [Rx] Nicotine 21Mg/24Hr Patch [Habitrol] 1 patch TRANSDERM DAILY #30 patch 09/11/17 [ Rx] Omeprazole [PriLOSEC] 20 mg PO AC-BID #60 cap 09/11/17 [Rx] Thiamine [Vitamin B-1] 100 mg PO DAILY #30 tab 09/11/17 [Rx] Follow up Appointment(s)/Referral(s): Alex Luis MD [STAFF PHYSICIAN] - 09/18/17 11:15 am Josiah Nichols MD [Primary Care Provider] - 3 Days (Office closed, please call for appointment. ) Ambulatory/Diagnostic Orders: Comprehensive Metabolic Panel [LAB.AMB] Time Frame: 3 Days, Location: Determined By Patient Patient Instructions/Handouts: Nasal Fracture (DC), Abuse of Alcohol (DC) Activity/Diet/Wound Care/Special Instructions: Pending ENT clearance for DC .No EtOH, no smoking resources given to patient on [place], AA Diet: Cardiac Activity: Limited until follow up
[2017-09-11] MEDS: DIAZEPAM 5 MG TAB PO PRN (16:35)
== END 2017-09-11 17:01 | disposition home or self-care (01) | DRG 897 ==
LOC: EC 05:36 → 4MS4W 08:24 → OBSVTOIN 09-11 15:18
PROVIDERS: ADMIT Hospitalist; ATTEND Hospitalist
DX: F10.239 Alcohol dependence with withdrawal, unspecified (principal); F11.11 Opioid abuse, in remission; K70.10 Alcoholic hepatitis without ascites; S02.2XXA Fracture of nasal bones, initial encounter for closed fracture; S00.83XA Contusion of other part of head, initial encounter; F17.210 Nicotine dependence, cigarettes, uncomplicated; F32.9 Major depressive disorder, single episode, unspecified; K29.20 Alcoholic gastritis without bleeding; Z71.6 Tobacco abuse counseling; Z87.19 Personal history of other diseases of the digestive system; Z79.899 Other long term (current) drug therapy; Y90.0 Blood alcohol level of less than 20 mg/100 ml; W18.30XA Fall on same level, unspecified, initial encounter; Y92.009 Unspecified place in unspecified non-institutional (private) residence as the place of occurrence of the external cause
CPT/HCPCS: 36415; 70450; 70486; 72125; 80053; 80074; 80306; 80320; 81001; 85025; 85027; 85610; 96361; 96372; 96374; 96376; 99285